=== PATIENT | female | born 1950 | race Caucasian/White ===

== ENCOUNTER → 2017-07-19 15:02 | Outpatient (CLI) | payer OTHER, SELFPAY ==
[2017-07-19 16:51] LABS: Hemoglobin A1c 11.9 % (4.2-6.3)
[2017-07-19 16:53] LABS: Vitamin D,25 Hydroxy 18.9 ng/mL (19.95-100.01)
[2017-07-19 17:23] LABS: Absolute Lymphocyte Count 1.42 X10^3/ul (0.83-4.51); Absolute Neutrophil Count 4.8 X10^3/uL (2.0-7.7); Basophil# 0.01 X10^3/uL; Basophil% 0.1 % (0-1); Eosinophil# 0.36 X10^3/uL; Eosinophils% 4.9 % (0-5); Hematocrit 44.4 % (37-47); Hemoglobin 13.8 g/dl (12.0-15.0); Lymphocyte # 1.42 X10^3/ul (4.0); Lymphocyte % 19.5 % (19-41); Mean Corp Hgb Conc 31.1 g/gl (32-36); Mean Corpuscular Hgb 26.6 pg (27.0-32.0); Mean Corpuscular Volume 85.5 fL (81-99); Mean Platelet Vol. 11.2 fl (6.2-12.0); Monocyte# 0.66 X10^3/uL; Monocyte% 9.1 % (0-10); Neutrophil # 4.83 X10^3/uL (2.7-7.7); Neutrophil % 66.3 % (47-70); Platelet Count 258 K/mm3 (150-450); RBC Distribution Width SD 47.1 fl (35.1-43.9); Red Blood Count 5.19 M/mm3 (4.2-5.4); White Blood Count 7.3 K/mm3 (4.4-11.0)
[2017-07-19 17:35] LABS: ALB/GLOB Ratio 0.6 RATIO (0.9-2.4); AST(SGOT) 19 U/L (15-37); Alanine Aminotransfer ALT/SGPT 21 U/L (13-56); Albumin, Serum 3.1 g/dL (3.2-5.0); Alkaline Phosphatase 128 U/L (45-117); Anion Gap 13 (5-15); BUN 45 mg/dL (7-18); BUN/Creat Ratio 15.1 RATIO (10-20); Calcium,Total 8.7 mg/dL (8.5-10.1); Chloride 105 mmol/L (98-107); Cholesterol 144 mg/dL (200); Creatinine, Serum 2.98 mg/dL (0.55-1.02); EST Glomerular Filtration Rate 17 mL/min (>60); Est Glom Filt Rate - Afr Amer 20 mL/min (>60); Globulin 5.1 g/dL (2.2-4.2); Glucose 223 mg/dL (74-106); High Density Lipoprotein 34 mg/dL; Phosphorus 3.5 mg/dL (2.5-4.9); Potassium 4.1 mmol/L (3.5-5.1); Protein, Total 8.2 g/dL (6.4-8.2); Sodium Level 137 mmol/L (136-145); Triglycerides 507 mg/dL
[2017-07-19 17:55] LABS: PTHIN 129.6 pg/mL (18.4-80.1)
[2017-07-19 18:12] LABS: POSITIVE COUNT NO; POSITIVE DIFFERENTIAL NO; POSITIVE MORPHOLOGY NO
== END ==
PROVIDERS: Family Provider Family Medicine Geriatric Medicine; PCP Family Medicine Geriatric Medicine; Visit Provider Family Medicine Geriatric Medicine
DX: E11.22 Type 2 diabetes mellitus with diabetic chronic kidney disease (principal); N18.9 Chronic kidney disease, unspecified; D63.8 Anemia in other chronic diseases classified elsewhere; E78.4 Other hyperlipidemia; E55.9 Vitamin D deficiency, unspecified; E21.1 Secondary hyperparathyroidism, not elsewhere classified
CPT/HCPCS: 36415; 80053; 80061; 82306; 83036; 83970; 84100; 84443; 85025

== ENCOUNTER → 2017-08-23 12:15 | Outpatient (CLI) | payer MEDICARE, OTHER, SELFPAY ==
[2017-08-23 12:49] LABS: Absolute Lymphocyte Count 1.47 X10^3/ul (0.83-4.51); Absolute Neutrophil Count 5.3 X10^3/uL (2.0-7.7); Basophil# 0.02 X10^3/uL; Basophil% 0.3 % (0-1); Eosinophil# 0.38 X10^3/uL; Eosinophils% 4.9 % (0-5); Hematocrit 40.7 % (37-47); Lymphocyte # 1.47 X10^3/ul (4.0); Lymphocyte % 18.9 % (19-41); Mean Corp Hgb Conc 31.9 g/gl (32-36); Mean Corpuscular Hgb 26.9 pg (27.0-32.0); Mean Corpuscular Volume 84.3 fL (81-99); Mean Platelet Vol. 11.1 fl (6.2-12.0); Monocyte# 0.59 X10^3/uL; Monocyte% 7.6 % (0-10); Neutrophil # 5.31 X10^3/uL (2.7-7.7); Neutrophil % 68.2 % (47-70); Platelet Count 274 K/mm3 (150-450); RBC Distribution Width CV 14.6 % (11.6-14.6); RBC Distribution Width SD 44.4 fl (35.1-43.9); Red Blood Count 4.83 M/mm3 (4.2-5.4); White Blood Count 7.8 K/mm3 (4.4-11.0)
[2017-08-23 12:56] LABS: POSITIVE COUNT NO; POSITIVE DIFFERENTIAL NO; POSITIVE MORPHOLOGY NO
[2017-08-23 13:01] LABS: Vitamin D,25 Hydroxy 27.2 ng/mL (29.95-100.01)
[2017-08-23 13:06] LABS: ALB/GLOB Ratio 0.6 RATIO (0.9-2.4); AST(SGOT) 12 U/L (15-37); Alanine Aminotransfer ALT/SGPT 17 U/L (13-56); Albumin, Serum 2.9 g/dL (3.2-5.0); Alkaline Phosphatase 110 U/L (45-117); Anion Gap 11 (5-15); BUN 56 mg/dL (7-18); Calcium,Total 8.5 mg/dL (8.5-10.1); Chloride 102 mmol/L (98-107); EST Glomerular Filtration Rate 15 mL/min (>60); Est Glom Filt Rate - Afr Amer 18 mL/min (>60); Globulin 4.7 g/dL (2.2-4.2); Glucose 206 mg/dL (74-106); Potassium 3.7 mmol/L (3.5-5.1); Protein, Total 7.6 g/dL (6.4-8.2); Sodium Level 138 mmol/L (136-145); Thyroid Stim Hormone (TSH) 0.42 uIU/mL (0.358-3.74)
[2017-08-25 11:31] LABS: Hep C Antibodies 0.1 s/co ratio (0.0-0.9)
== END ==
PROVIDERS: Family Provider Family Medicine Geriatric Medicine; PCP Family Medicine Geriatric Medicine; Visit Provider Family Medicine Geriatric Medicine
DX: E11.9 Type 2 diabetes mellitus without complications (principal); I10 Essential (primary) hypertension; E55.9 Vitamin D deficiency, unspecified; Z13.89 Encounter for screening for other disorder
CPT/HCPCS: 36415; 80053; 82306; 84443; 85025; 86803

== ENCOUNTER → 2017-09-13 14:09 | Outpatient (CLI) | payer MEDICARE, OTHER, SELFPAY ==
[2017-09-13 17:14] LABS: Albumin, Serum 3.2 g/dL (3.2-5.0); BUN 49 mg/dL (7-18); BUN/Creat Ratio 14.6 RATIO (10-20); Calcium,Total 8.8 mg/dL (8.5-10.1); Chloride 105 mmol/L (98-107); Creatinine, Serum 3.35 mg/dL (0.55-1.02); EST Glomerular Filtration Rate 15 mL/min (>60); Est Glom Filt Rate - Afr Amer 18 mL/min (>60); Glucose 235 mg/dL (74-106); Hematocrit 41.7 % (37-47); Hemoglobin 12.9 g/dl (12.0-15.0); Mean Corp Hgb Conc 30.9 g/gl (32-36); Mean Corpuscular Hgb 26.4 pg (27.0-32.0); Mean Corpuscular Volume 85.3 fL (81-99); Phosphorus 4.6 mg/dL (2.5-4.9); Platelet Count 252 K/mm3 (150-450); Potassium 4.3 mmol/L (3.5-5.1); RBC Distribution Width CV 14.8 % (11.6-14.6); RBC Distribution Width SD 46.1 fl (35.1-43.9); Red Blood Count 4.89 M/mm3 (4.2-5.4); Sodium Level 138 mmol/L (136-145); White Blood Count 7.5 K/mm3 (4.4-11.0)
[2017-09-13 17:19] LABS: Scan Indicated on CBC? Y/N NO
[2017-09-13 18:59] LABS: PTHIN 181.4 pg/mL (18.4-80.1)
== END ==
PROVIDERS: Family Provider Family Medicine Geriatric Medicine; PCP Family Medicine Geriatric Medicine; Visit Provider Internal Medicine Nephrology
DX: N18.5 Chronic kidney disease, stage 5 (principal); E21.1 Secondary hyperparathyroidism, not elsewhere classified
CPT/HCPCS: 36415; 80069; 83970; 85027

== ENCOUNTER → 2017-11-04 10:56 | Outpatient (CLI) | payer MEDICARE, OTHER, SELFPAY ==
--- NOTE | 2017-11-04 10:56 | DT_ITS ---
This patient was seen during an EMR downtime November 01, 2017 - November 08, 2017. This patient may have a combination of paper and electronic documentation or all paper documentation. All documentation is viewable within the e-chart portion of [facility] for each patient visit.
[2017-11-05 14:44] LABS: PTHIN 86.4 pg/mL (18.4-80.1)
[2017-11-09 05:04] LABS: Albumin, Serum 2.4 g/dL (3.2-5.0); BUN 38 mg/dL (7-18); BUN/Creat Ratio 10.5 RATIO (10-20); Calcium,Total 8.7 mg/dL (8.5-10.1); Creatinine, Serum 3.63 mg/dL (0.55-1.02); EST Glomerular Filtration Rate 13 mL/min (>60); Est Glom Filt Rate - Afr Amer 16 mL/min (>60); Glucose 122 mg/dL (74-106); Phosphorus 3.4 mg/dL (2.5-4.9); Sodium Level 143 mmol/L (136-145)
[2017-11-09 05:05] LABS: Chloride 113 mmol/L (98-107); Potassium 4.2 mmol/L (3.5-5.1)
[2017-11-09 05:37] LABS: Hematocrit 37.2 % (37-47); Hemoglobin 11.4 g/dl (12.0-15.0); Mean Corp Hgb Conc 30.6 g/gl (32-36); Mean Corpuscular Hgb 25.5 pg (27.0-32.0); Mean Corpuscular Volume 83.2 fL (81-99); Platelet Count 351 K/mm3 (150-450); RBC Distribution Width CV 15.1 % (11.6-14.6); RBC Distribution Width SD 46.2 fl (35.1-43.9); Red Blood Count 4.47 M/mm3 (4.2-5.4); Scan Indicated on CBC? Y/N NO; White Blood Count 6.5 K/mm3 (4.4-11.0)
== END ==
PROVIDERS: Family Provider Family Medicine Geriatric Medicine; PCP Family Medicine Geriatric Medicine; Visit Provider Internal Medicine Nephrology
DX: N18.5 Chronic kidney disease, stage 5 (principal); D63.8 Anemia in other chronic diseases classified elsewhere; E21.1 Secondary hyperparathyroidism, not elsewhere classified
CPT/HCPCS: 36415; 80069; 83970; 85027

== ENCOUNTER → 2017-11-22 11:18 | Outpatient (CLI) | payer MEDICARE, OTHER, SELFPAY ==
[2017-11-22 12:44] LABS: Absolute Neutrophil Count 5.3 X10^3/uL (2.0-7.7); Basophil# 0.02 X10^3/uL; Basophil% 0.3 % (0-1); Eosinophil# 0.42 X10^3/uL; Eosinophils% 5.3 % (0-5); Hematocrit 37.4 % (37-47); Hemoglobin 11.6 g/dl (12.0-15.0); Lymphocyte % 19.1 % (19-41); Mean Corpuscular Hgb 25.8 pg (27.0-32.0); Mean Corpuscular Volume 83.1 fL (81-99); Mean Platelet Vol. 11.3 fl (6.2-12.0); Monocyte# 0.57 X10^3/uL; Monocyte% 7.3 % (0-10); Neutrophil # 5.33 X10^3/uL (2.7-7.7); Neutrophil % 67.7 % (47-70); Platelet Count 295 K/mm3 (150-450); RBC Distribution Width CV 16.4 % (11.6-14.6); White Blood Count 7.9 K/mm3 (4.4-11.0)
[2017-11-22 12:51] LABS: Vitamin D,25 Hydroxy 31.1 ng/mL (29.95-100.01)
[2017-11-22 12:53] LABS: ALB/GLOB Ratio 0.5 RATIO (0.9-2.4); AST(SGOT) 12 U/L (15-37); Alanine Aminotransfer ALT/SGPT 15 U/L (13-56); Albumin, Serum 2.7 g/dL (3.2-5.0); Alkaline Phosphatase 124 U/L (45-117); Anion Gap 11 (5-15); BUN 38 mg/dL (7-18); BUN/Creat Ratio 14.1 RATIO (10-20); Calcium,Total 8.4 mg/dL (8.5-10.1); Chloride 110 mmol/L (98-107); Creatinine, Serum 2.69 mg/dL (0.55-1.02); EST Glomerular Filtration Rate 19 mL/min (>60); Est Glom Filt Rate - Afr Amer 23 mL/min (>60); Glucose 211 mg/dL (74-106); POSITIVE COUNT NO; POSITIVE DIFFERENTIAL NO; POSITIVE MORPHOLOGY NO; Potassium 4.7 mmol/L (3.5-5.1); Protein, Total 7.7 g/dL (6.4-8.2); Sodium Level 142 mmol/L (136-145); Thyroid Stim Hormone (TSH) 2.18 uIU/mL (0.358-3.74)
== END ==
PROVIDERS: Family Provider Family Medicine Geriatric Medicine; PCP Family Medicine Geriatric Medicine; Visit Provider Family Medicine Geriatric Medicine
DX: E11.9 Type 2 diabetes mellitus without complications (principal); I10 Essential (primary) hypertension; E55.9 Vitamin D deficiency, unspecified
CPT/HCPCS: 36415; 80053; 82306; 84443; 85025

== ENCOUNTER → 2018-01-04 09:48 | Outpatient (CLI) | payer MEDICARE, OTHER, SELFPAY ==
[2018-01-04 12:47] LABS: Hemoglobin 11.5 g/dl (12.0-15.0); Mean Corp Hgb Conc 30.3 g/gl (32-36); Mean Corpuscular Hgb 26.1 pg (27.0-32.0); Mean Corpuscular Volume 86.4 fL (81-99); Platelet Count 274 K/mm3 (150-450); RBC Distribution Width SD 51.1 fl (35.1-43.9); White Blood Count 7.2 K/mm3 (4.4-11.0)
[2018-01-04 12:48] LABS: Scan Indicated on CBC? Y/N NO
[2018-01-04 12:57] LABS: Albumin, Serum 2.9 g/dL (3.2-5.0); BUN 45 mg/dL (7-18); BUN/Creat Ratio 14.8 RATIO (10-20); Calcium,Total 8.4 mg/dL (8.5-10.1); Chloride 106 mmol/L (98-107); Creatinine, Serum 3.04 mg/dL (0.55-1.02); EST Glomerular Filtration Rate 16 mL/min (>60); Est Glom Filt Rate - Afr Amer 20 mL/min (>60); Glucose 214 mg/dL (74-106); Phosphorus 4.4 mg/dL (2.5-4.9); Potassium 4.6 mmol/L (3.5-5.1); Sodium Level 139 mmol/L (136-145)
[2018-01-05 09:49] LABS: Vitamin D,25 Hydroxy 39.1 ng/mL (29.95-100.01)
[2018-01-05 10:00] LABS: PTHIN 97.5 pg/mL (18.4-80.1)
== END ==
PROVIDERS: Family Provider Family Medicine Geriatric Medicine; PCP Family Medicine Geriatric Medicine; Visit Provider Internal Medicine Nephrology
DX: N18.5 Chronic kidney disease, stage 5 (principal); D63.8 Anemia in other chronic diseases classified elsewhere; E55.9 Vitamin D deficiency, unspecified; E21.1 Secondary hyperparathyroidism, not elsewhere classified
CPT/HCPCS: 36415; 80069; 82306; 83970; 85027

== ENCOUNTER → 2018-02-22 14:37 | Outpatient (CLI) | payer MEDICARE, OTHER, SELFPAY ==
[2018-02-22 16:31] LABS: Absolute Lymphocyte Count 1.31 X10^3/ul (0.83-4.51); Basophil# 0.02 X10^3/uL; Basophil% 0.3 % (0-1); Eosinophil# 0.33 X10^3/uL; Eosinophils% 4.6 % (0-5); Hematocrit 38.8 % (37-47); Hemoglobin 12.2 g/dl (12.0-15.0); Lymphocyte # 1.31 X10^3/ul (4.0); Lymphocyte % 18.1 % (19-41); Mean Corp Hgb Conc 31.4 g/gl (32-36); Mean Corpuscular Hgb 27.1 pg (27.0-32.0); Mean Corpuscular Volume 86.2 fL (81-99); Mean Platelet Vol. 11.7 fl (6.2-12.0); Monocyte# 0.56 X10^3/uL; Monocyte% 7.8 % (0-10); Neutrophil # 4.99 X10^3/uL (2.7-7.7); Neutrophil % 69.1 % (47-70); Platelet Count 268 K/mm3 (150-450); RBC Distribution Width CV 14.7 % (11.6-14.6); RBC Distribution Width SD 45.7 fl (35.1-43.9); White Blood Count 7.2 K/mm3 (4.4-11.0)
[2018-02-22 16:38] LABS: POSITIVE COUNT NO; POSITIVE DIFFERENTIAL NO; POSITIVE MORPHOLOGY NO
[2018-02-22 16:41] LABS: ALB/GLOB Ratio 0.6 RATIO (0.9-2.4); AST(SGOT) 10 U/L (15-37); Alanine Aminotransfer ALT/SGPT 18 U/L (13-56); Albumin, Serum 2.8 g/dL (3.2-5.0); Alkaline Phosphatase 131 U/L (45-117); Anion Gap 10 (5-15); BUN 51 mg/dL (7-18); BUN/Creat Ratio 16.3 RATIO (10-20); Calcium,Total 8.5 mg/dL (8.5-10.1); Chloride 105 mmol/L (98-107); Creatinine, Serum 3.13 mg/dL (0.55-1.02); EST Glomerular Filtration Rate 16 mL/min (>60); Est Glom Filt Rate - Afr Amer 19 mL/min (>60); Globulin 4.9 g/dL (2.2-4.2); Glucose 373 mg/dL (74-106); Potassium 4.7 mmol/L (3.5-5.1); Protein, Total 7.7 g/dL (6.4-8.2); Sodium Level 137 mmol/L (136-145); Thyroid Stim Hormone (TSH) 2.03 uIU/mL (0.358-3.74); Vitamin D,25 Hydroxy 23.1 ng/mL (29.95-100.01)
== END ==
PROVIDERS: Family Provider Family Medicine Geriatric Medicine; PCP Family Medicine Geriatric Medicine; Visit Provider Family Medicine Geriatric Medicine
DX: E11.9 Type 2 diabetes mellitus without complications (principal); I10 Essential (primary) hypertension; E55.9 Vitamin D deficiency, unspecified
CPT/HCPCS: 36415; 80053; 82306; 84443; 85025

== ENCOUNTER → 2018-03-22 11:52 | Outpatient (CLI) | payer MEDICARE, OTHER, SELFPAY ==
[2018-03-22 12:45] LABS: Hematocrit 39.3 % (37-47); Hemoglobin 11.8 g/dl (12.0-15.0); Mean Corpuscular Hgb 26.5 pg (27.0-32.0); Mean Corpuscular Volume 88.3 fL (81-99); Mean Platelet Vol. 10.7 fl (6.2-12.0); Platelet Count 249 K/mm3 (150-450); RBC Distribution Width CV 15.2 % (11.6-14.6); RBC Distribution Width SD 48.5 fl (35.1-43.9); Red Blood Count 4.45 M/mm3 (4.2-5.4); White Blood Count 7.1 K/mm3 (4.4-11.0)
[2018-03-22 12:46] LABS: Scan Indicated on CBC? Y/N NO
[2018-03-22 13:02] LABS: Albumin, Serum 2.8 g/dL (3.2-5.0); BUN 49 mg/dL (7-18); BUN/Creat Ratio 18.7 RATIO (10-20); Calcium,Total 8.6 mg/dL (8.5-10.1); Chloride 112 mmol/L (98-107); Creatinine, Serum 2.62 mg/dL (0.55-1.02); EST Glomerular Filtration Rate 19 mL/min (>60); Est Glom Filt Rate - Afr Amer 24 mL/min (>60); Glucose 123 mg/dL (74-106); Phosphorus 4.8 mg/dL (2.5-4.9); Potassium 4.6 mmol/L (3.5-5.1); Sodium Level 142 mmol/L (136-145)
[2018-03-22 13:31] LABS: PTHIN 90.6 pg/mL (18.4-80.1)
== END ==
PROVIDERS: Family Provider Family Medicine Geriatric Medicine; PCP Family Medicine Geriatric Medicine; Visit Provider Internal Medicine Nephrology
DX: N18.5 Chronic kidney disease, stage 5 (principal); D63.8 Anemia in other chronic diseases classified elsewhere; E21.1 Secondary hyperparathyroidism, not elsewhere classified
CPT/HCPCS: 36415; 80069; 83970; 85027

== ENCOUNTER → 2018-03-25 09:46 | Outpatient (CLI) | payer MEDICARE, OTHER, SELFPAY | PROVIDERS: Family Provider Family Medicine Geriatric Medicine; PCP Family Medicine Geriatric Medicine; Referring Provider Family Medicine Geriatric Medicine; Visit Provider Family Medicine Geriatric Medicine | DX: R06.02 Shortness of breath (principal) | CPT/HCPCS: 93306; Q9957; A4216; C8929 ==

== ENCOUNTER → 2018-04-04 10:51 | Outpatient (CLI) | payer MEDICARE, OTHER, SELFPAY ==
[2018-04-04 13:03] LABS: Anion Gap 9 (5-15); BUN 54 mg/dL (7-18); BUN/Creat Ratio 15.4 RATIO (10-20); Calcium,Total 8.7 mg/dL (8.5-10.1); Chloride 108 mmol/L (98-107); EST Glomerular Filtration Rate 14 mL/min (>60); Est Glom Filt Rate - Afr Amer 17 mL/min (>60); Glucose 96 mg/dL (74-106); Potassium 4.4 mmol/L (3.5-5.1); Sodium Level 140 mmol/L (136-145)
== END ==
PROVIDERS: Family Provider Family Medicine Geriatric Medicine; PCP Family Medicine Geriatric Medicine; Visit Provider Family Medicine Geriatric Medicine
DX: N18.3 Chronic kidney disease, stage 3 (moderate) (principal)
CPT/HCPCS: 36415; 80048

== ENCOUNTER → 2018-05-03 11:31 | Outpatient (CLI) | payer MEDICARE, OTHER, SELFPAY ==
[2018-03-24 09:55] VITALS: BMI 58.5
[2018-05-03 12:46] LABS: Anion Gap 13 (5-15); BUN 46 mg/dL (7-18); BUN/Creat Ratio 14.1 RATIO (10-20); Calcium,Total 8.5 mg/dL (8.5-10.1); Chloride 106 mmol/L (98-107); Creatinine, Serum 3.26 mg/dL (0.55-1.02); EST Glomerular Filtration Rate 15 mL/min (>60); Est Glom Filt Rate - Afr Amer 18 mL/min (>60); Glucose 201 mg/dL (74-106); Potassium 4.7 mmol/L (3.5-5.1); Sodium Level 140 mmol/L (136-145)
== END ==
PROVIDERS: Family Provider Family Medicine Geriatric Medicine; PCP Family Medicine Geriatric Medicine; Visit Provider Internal Medicine Nephrology
DX: N18.5 Chronic kidney disease, stage 5 (principal)
CPT/HCPCS: 36415; 80048

== ENCOUNTER → 2018-05-25 13:11 | Outpatient (CLI) | payer MEDICARE, OTHER, SELFPAY ==
[2018-03-24 09:55] VITALS: BMI 58.5
[2018-05-25 17:59] LABS: Absolute Lymphocyte Count 1.32 X10^3/ul (0.83-4.51); Absolute Neutrophil Count 3.8 X10^3/uL (2.0-7.7); Basophil# 0.02 X10^3/uL; Basophil% 0.3 % (0-1); Eosinophil# 0.44 X10^3/uL; Eosinophils% 7.2 % (0-5); Hematocrit 38.3 % (37-47); Hemoglobin 11.5 g/dl (12.0-15.0); Lymphocyte # 1.32 X10^3/ul (4.0); Lymphocyte % 21.5 % (19-41); Mean Corpuscular Hgb 26.3 pg (27.0-32.0); Mean Corpuscular Volume 87.4 fL (81-99); Mean Platelet Vol. 11.2 fl (6.2-12.0); Monocyte# 0.53 X10^3/uL; Monocyte% 8.6 % (0-10); Neutrophil # 3.82 X10^3/uL (2.7-7.7); Neutrophil % 62.1 % (47-70); POSITIVE COUNT NO; POSITIVE DIFFERENTIAL NO; POSITIVE MORPHOLOGY NO; Platelet Count 285 K/mm3 (150-450); RBC Distribution Width CV 15.1 % (11.6-14.6); RBC Distribution Width SD 47.8 fl (35.1-43.9); Red Blood Count 4.38 M/mm3 (4.2-5.4); White Blood Count 6.2 K/mm3 (4.4-11.0)
[2018-05-25 18:14] LABS: Hemoglobin A1c 8.6 % (4.2-6.3)
[2018-05-25 18:18] LABS: Vitamin D,25 Hydroxy 34.1 ng/mL (29.95-100.01)
[2018-05-25 18:21] LABS: ALB/GLOB Ratio 0.7 RATIO (0.9-2.4); AST(SGOT) 9 U/L (15-37); Alanine Aminotransfer ALT/SGPT 19 U/L (13-56); Alkaline Phosphatase 107 U/L (45-117); Anion Gap 13 (5-15); BUN 49 mg/dL (7-18); BUN/Creat Ratio 15.4 RATIO (10-20); Calcium,Total 8.5 mg/dL (8.5-10.1); Chloride 108 mmol/L (98-107); Cholesterol 117 mg/dL (200); Creatinine, Serum 3.19 mg/dL (0.55-1.02); EST Glomerular Filtration Rate 16 mL/min (>60); Est Glom Filt Rate - Afr Amer 19 mL/min (>60); Globulin 4.6 g/dL (2.2-4.2); Glucose 212 mg/dL (74-106); High Density Lipoprotein 34 mg/dL; Potassium 4.2 mmol/L (3.5-5.1); Protein, Total 7.6 g/dL (6.4-8.2); Sodium Level 142 mmol/L (136-145); Thyroid Stim Hormone (TSH) 1.22 uIU/mL (0.358-3.74); Triglycerides 285 mg/dL; Very Low Density Lipoprotein 57 mg/dL (5-40)
== END ==
PROVIDERS: Family Provider Family Medicine Geriatric Medicine; PCP Family Medicine Geriatric Medicine; Visit Provider Internal Medicine Nephrology
DX: N18.5 Chronic kidney disease, stage 5 (principal); D63.8 Anemia in other chronic diseases classified elsewhere; E55.9 Vitamin D deficiency, unspecified
CPT/HCPCS: 36415; 80053; 80061; 82306; 83036; 84443; 85025

== ENCOUNTER → 2018-05-26 11:57 | Outpatient (CLI) | payer MEDICARE, OTHER, SELFPAY ==
--- NOTE | 2018-05-26 12:15 | RAD_ITS ---
STUDY: X-RAY - RIGHT KNEE REASON FOR EXAM: Female, 68 years old. TECHNIQUE: view(s) of the knee. COMPARISON: None. FINDINGS: Limited examination. There is mild osteoarthritis of the knee joint no fracture or subluxation . No joint effusion. RAD/Knee 3 Views IMPRESSION: Limited grossly negative study except for mild osteoarthritis Electronically Signed: Agatha Ayon, at 15:30 EST Tel , Service support ,
== END ==
PROVIDERS: Family Provider Family Medicine Geriatric Medicine; PCP Family Medicine Geriatric Medicine; Referring Provider Family Medicine Geriatric Medicine; Visit Provider Family Medicine Geriatric Medicine
DX: M25.569 Pain in unspecified knee (principal)
CPT/HCPCS: 73562

== ENCOUNTER → 2018-06-27 11:23 | Outpatient (CLI) | payer MEDICARE, OTHER, SELFPAY ==
[2018-03-24 09:55] VITALS: BMI 58.5
[2018-06-27 13:14] LABS: Hematocrit 40.3 % (37-47); Hemoglobin 11.9 g/dl (12.0-15.0); Mean Corp Hgb Conc 29.5 g/gl (32-36); Mean Corpuscular Hgb 25.5 pg (27.0-32.0); Mean Corpuscular Volume 86.3 fL (81-99); Mean Platelet Vol. 10.5 fl (6.2-12.0); Platelet Count 257 K/mm3 (150-450); RBC Distribution Width CV 15.5 % (11.6-14.6); RBC Distribution Width SD 48.6 fl (35.1-43.9); Red Blood Count 4.67 M/mm3 (4.2-5.4); White Blood Count 8.1 K/mm3 (4.4-11.0)
[2018-06-27 13:16] LABS: Scan Indicated on CBC? Y/N NO
[2018-06-27 13:20] LABS: Albumin, Serum 2.9 g/dL (3.2-5.0); BUN 44 mg/dL (7-18); BUN/Creat Ratio 14.5 RATIO (10-20); Calcium,Total 8.6 mg/dL (8.5-10.1); Chloride 109 mmol/L (98-107); Creatinine, Serum 3.03 mg/dL (0.55-1.02); EST Glomerular Filtration Rate 16 mL/min (>60); Est Glom Filt Rate - Afr Amer 20 mL/min (>60); Glucose 172 mg/dL (74-106); Phosphorus 4.1 mg/dL (2.5-4.9); Potassium 4.5 mmol/L (3.5-5.1); Sodium Level 143 mmol/L (136-145)
[2018-06-27 13:57] LABS: PTHIN 171.9 pg/mL (18.4-80.1)
== END ==
PROVIDERS: Family Provider Family Medicine Geriatric Medicine; PCP Family Medicine Geriatric Medicine; Visit Provider Internal Medicine Nephrology
DX: N18.5 Chronic kidney disease, stage 5 (principal); E21.1 Secondary hyperparathyroidism, not elsewhere classified
CPT/HCPCS: 36415; 80069; 83970; 85027

== ENCOUNTER → 2018-07-25 11:34 | Outpatient (CLI) | payer MEDICARE, OTHER, SELFPAY ==
[2018-03-24 09:55] VITALS: BMI 58.5
[2018-07-25 12:44] LABS: Hematocrit 43.1 % (37-47); Hemoglobin 12.8 g/dl (12.0-15.0); Mean Corp Hgb Conc 29.7 g/gl (32-36); Mean Corpuscular Hgb 25.5 pg (27.0-32.0); Mean Corpuscular Volume 85.9 fL (81-99); Mean Platelet Vol. 10.9 fl (6.2-12.0); Platelet Count 273 K/mm3 (150-450); RBC Distribution Width CV 15.2 % (11.6-14.6); RBC Distribution Width SD 47.5 fl (35.1-43.9); Red Blood Count 5.02 M/mm3 (4.2-5.4); White Blood Count 7.9 K/mm3 (4.4-11.0)
[2018-07-25 12:59] LABS: Scan Indicated on CBC? Y/N NO
[2018-07-25 13:04] LABS: BUN 46 mg/dL (7-18); Creatinine, Serum 3.26 mg/dL (0.55-1.02); EST Glomerular Filtration Rate 15 mL/min (>60); Glucose 94 mg/dL (74-106)
[2018-07-25 13:05] LABS: BUN/Creat Ratio 14.1 RATIO (10-20); Calcium,Total 8.9 mg/dL (8.5-10.1); Chloride 109 mmol/L (98-107); Est Glom Filt Rate - Afr Amer 18 mL/min (>60); Phosphorus 4.7 mg/dL (2.5-4.9); Potassium 4.7 mmol/L (3.5-5.1); Sodium Level 142 mmol/L (136-145)
[2018-07-25 13:11] LABS: PTHIN 95.2 pg/mL (18.4-80.1)
== END ==
PROVIDERS: Internal Medicine Nephrology; Family Provider Family Medicine Geriatric Medicine; PCP Family Medicine Geriatric Medicine; Visit Provider Family Medicine Geriatric Medicine
DX: N18.5 Chronic kidney disease, stage 5 (principal); E21.1 Secondary hyperparathyroidism, not elsewhere classified
CPT/HCPCS: 36415; 80069; 83970; 85027

== ENCOUNTER → 2018-08-25 11:22 | Outpatient (CLI) | payer MEDICARE, OTHER, SELFPAY ==
[2018-03-24 09:55] VITALS: BMI 58.5
[2018-08-25 12:47] LABS: Absolute Lymphocyte Count 1.14 X10^3/ul (0.83-4.51); Absolute Neutrophil Count 5.5 X10^3/uL (2.0-7.7); Basophil# 0.01 X10^3/uL; Basophil% 0.1 % (0-1); Eosinophil# 0.28 X10^3/uL; Eosinophils% 3.8 % (0-5); Hemoglobin 12.3 g/dl (12.0-15.0); Lymphocyte # 1.14 X10^3/ul (4.0); Lymphocyte % 15.3 % (19-41); Mean Corpuscular Hgb 25.6 pg (27.0-32.0); Mean Corpuscular Volume 85.2 fL (81-99); Mean Platelet Vol. 10.7 fl (6.2-12.0); Monocyte# 0.48 X10^3/uL; Monocyte% 6.4 % (0-10); Neutrophil # 5.54 X10^3/uL (2.7-7.7); Neutrophil % 74.3 % (47-70); Platelet Count 257 K/mm3 (150-450); RBC Distribution Width CV 15.2 % (11.6-14.6); RBC Distribution Width SD 47.6 fl (35.1-43.9); Red Blood Count 4.81 M/mm3 (4.2-5.4); White Blood Count 7.5 K/mm3 (4.4-11.0)
[2018-08-25 12:50] LABS: POSITIVE COUNT NO; POSITIVE DIFFERENTIAL NO; POSITIVE MORPHOLOGY NO
[2018-08-25 12:58] LABS: Vitamin D,25 Hydroxy 50.5 ng/mL (29.95-100.01)
[2018-08-25 13:08] LABS: ALB/GLOB Ratio 0.6 RATIO (0.9-2.4); AST(SGOT) 14 U/L (15-37); Alanine Aminotransfer ALT/SGPT 16 U/L (13-56); Albumin, Serum 2.9 g/dL (3.2-5.0); Alkaline Phosphatase 113 U/L (45-117); Anion Gap 8 (5-15); BUN 54 mg/dL (7-18); Calcium,Total 8.5 mg/dL (8.5-10.1); Chloride 107 mmol/L (98-107); Creatinine, Serum 3.86 mg/dL (0.55-1.02); EST Glomerular Filtration Rate 12 mL/min (>60); Est Glom Filt Rate - Afr Amer 15 mL/min (>60); Globulin 4.6 g/dL (2.2-4.2); Glucose 277 mg/dL (74-106); Phosphorus 4.8 mg/dL (2.5-4.9); Potassium 4.4 mmol/L (3.5-5.1); Protein, Total 7.5 g/dL (6.4-8.2); Sodium Level 138 mmol/L (136-145); Thyroid Stim Hormone (TSH) 0.42 uIU/mL (0.358-3.74)
[2018-08-25 13:23] LABS: PTHIN 92.9 pg/mL (18.4-80.1)
== END ==
PROVIDERS: Family Provider Family Medicine Geriatric Medicine; PCP Family Medicine Geriatric Medicine; Visit Provider Internal Medicine Nephrology
DX: E11.22 Type 2 diabetes mellitus with diabetic chronic kidney disease (principal); I12.0 Hypertensive chronic kidney disease with stage 5 chronic kidney disease or end stage renal disease; N18.5 Chronic kidney disease, stage 5
CPT/HCPCS: 36415; 80053; 82306; 83970; 84100; 84443; 85025

== ENCOUNTER → 2018-09-28 13:22 | Outpatient (CLI) | payer MEDICARE, OTHER, SELFPAY ==
[2018-03-24 09:55] VITALS: BMI 58.5
[2018-09-28 15:27] LABS: Hematocrit 40.6 % (37-47); Hemoglobin 12.5 g/dl (12.0-15.0); Mean Corp Hgb Conc 30.8 g/gl (32-36); Mean Corpuscular Hgb 25.4 pg (27.0-32.0); Mean Corpuscular Volume 82.5 fL (81-99); Mean Platelet Vol. 11.2 fl (6.2-12.0); Platelet Count 263 K/mm3 (150-450); RBC Distribution Width CV 15.6 % (11.6-14.6); RBC Distribution Width SD 46.4 fl (35.1-43.9); Red Blood Count 4.92 M/mm3 (4.2-5.4); White Blood Count 7.4 K/mm3 (4.4-11.0)
[2018-09-28 15:28] LABS: Scan Indicated on CBC? Y/N NO
[2018-09-28 16:40] LABS: Albumin, Serum 2.9 g/dL (3.2-5.0); BUN 55 mg/dL (7-18); BUN/Creat Ratio 15.5 RATIO (10-20); Calcium,Total 8.5 mg/dL (8.5-10.1); Chloride 107 mmol/L (98-107); Creatinine, Serum 3.54 mg/dL (0.55-1.02); EST Glomerular Filtration Rate 14 mL/min (>60); Est Glom Filt Rate - Afr Amer 17 mL/min (>60); Ferritin 46 ng/mL (8-252); Glucose 224 mg/dL (74-106); Iron 40 ug/dL (50-170); Iron Binding Capacity,Total 330 ug/dL (250-450); Phosphorus 4.2 mg/dL (2.5-4.9); Potassium 4.4 mmol/L (3.5-5.1); Sodium Level 140 mmol/L (136-145)
[2018-09-28 16:45] LABS: PTHIN 163.9 pg/mL (18.4-80.1)
== END ==
PROVIDERS: Family Provider Family Medicine Geriatric Medicine; PCP Family Medicine Geriatric Medicine; Visit Provider Internal Medicine Nephrology
DX: N18.5 Chronic kidney disease, stage 5 (principal); D63.8 Anemia in other chronic diseases classified elsewhere; E21.1 Secondary hyperparathyroidism, not elsewhere classified
CPT/HCPCS: 36415; 80069; 82728; 83540; 83550; 83970; 85027

== ENCOUNTER → 2018-11-02 10:17 | Outpatient (CLI) | payer MEDICARE, OTHER, SELFPAY ==
[2018-03-24 09:55] VITALS: BMI 58.5
--- NOTE | 2018-11-02 10:20 | BI_ITS ---
MAMMOGRAPHY - BILATERAL SCREENING REASON FOR EXAM: Female, 68 years old. Routine annual screening examination. PERTINENT HISTORY: Sister with breast cancer. Mother with breast cancer. TECHNIQUE: Digital bilateral breast luis (3D mammographic acquisition) in the CC and MLO projections. 2-D mediolateral oblique (MLO) and craniocaudad (CC) views of both breasts were obtained. CAD: Full Field Digital Mammography with Computer Added Detection was performed. COMPARISON: Comparison is made with prior examination dated July 05, 2014 and May 20, 2012. FINDINGS: Breast Composition: The breasts are heterogeneously dense, which may obscure small masses. There is a 1.2 cm x 1.1 cm well-defined nodule in the slightly inferior medial aspect of the left breast. This is new as compared to prior study. Correlation with ultrasound is recommended. Stable appearance of the bilateral axillary lymph nodes. No other significant abnormalities are identified. BI/SCREEN MAMM (CAD) W/LUIS BILAT IMPRESSION: 1.2 cm x 1.1 cm well-defined nodule in the slightly inferior medial aspect of the left breast as described. Correlation with ultrasound is recommended. ASSESSMENT CATEGORY: BIRADS Category 0: Incomplete. Need additional imaging evaluation. A letter regarding these results will be sent to the patient by the facility within 30 days. Approximately 10% of breast cancers are not detected by mammography. A normal mammogram should not delay biopsy of a clinically suspicious abnormality. [id number] Electronically Signed: Lv Ba, at 12:46 EDT , Service support ,
--- NOTE | 2018-11-02 10:23 | BD_ITS ---
STUDY: DUAL ENERGY X-RAY ABSORPTIOMETRY / DXA REASON FOR EXAM: Female, 68 years old. The patient is postmenopausal. No loss of height. TECHNIQUE: Bone Mineral Density (BMD) measurements of both forearms were obtained. COMPARISON: None. FINDINGS: Right Forearm: g/cm2 (0.882) / T-score (0.1) / Z-score (1.4) Left Forearm: g/cm2 (0.900) / T-score (0.1) / Z-score (1.6) BD/Dexa Bone Density/Append Skel IMPRESSION: The patient is considered normal as outlined below according to World Jun[employer] Organization (WHO) criteria with a low fracture risk. Reference Information: The T-score is the number of standard deviations above or below the standard which is normal for young adults at their peak bone mineral density. The World Health Organization (WHO) interprets the T-scores as follows: Above -1 Normal bone density Between -1 and -2.5 Osteopenia Equal to / or below -2.5 Osteoporosis As a practical clinical guideline, osteopenia may be graded as follows: Mild -1 through -1.5 Moderate -1.6 through -2.0 Severe -2.1 through -2.4 The Z-score is the number of standard deviations above or below age-matched controls. A Z-score of less than -1.5 would be considered abnormal. References: 1. NIH Osteoporosis and Related Bone Diseases http://www.osteo.org 2. International Society for Clinical Densitometry http://www.iscd.org 3. National Osteoporosis Foundation http://www.nof.org Electronically Signed: Lv Ba, at 8:59 EDT , Service support ,
== END ==
PROVIDERS: Family Provider Family Medicine Geriatric Medicine; PCP Family Medicine Geriatric Medicine; Referring Provider Family Medicine Geriatric Medicine; Visit Provider Family Medicine Geriatric Medicine
DX: Z12.31 Encounter for screening mammogram for malignant neoplasm of breast (principal); Z78.0 Asymptomatic menopausal state
CPT/HCPCS: 77063; 77067; 77081

== ENCOUNTER → 2018-11-23 10:26 | Outpatient (CLI) | payer MEDICARE, OTHER, SELFPAY ==
[2018-03-24 09:55] VITALS: BMI 58.5
[2018-11-23 12:22] LABS: Absolute Neutrophil Count 4.9 X10^3/uL (2.0-7.7); Basophil# 0.02 X10^3/uL; Basophil% 0.3 % (0-1); Eosinophil# 0.34 X10^3/uL; Hematocrit 42.5 % (37-47); Hemoglobin 13.3 g/dl (12.0-15.0); Lymphocyte % 17.8 % (19-41); Mean Corp Hgb Conc 31.3 g/gl (32-36); Mean Corpuscular Hgb 25.7 pg (27.0-32.0); Mean Corpuscular Volume 82.2 fL (81-99); Monocyte# 0.32 X10^3/uL; Monocyte% 4.7 % (0-10); Neutrophil # 4.86 X10^3/uL (2.7-7.7); Neutrophil % 71.9 % (47-70); Platelet Count 258 K/mm3 (150-450); RBC Distribution Width CV 16.2 % (11.6-14.6); RBC Distribution Width SD 47.8 fl (35.1-43.9); Red Blood Count 5.17 M/mm3 (4.2-5.4); White Blood Count 6.8 K/mm3 (4.4-11.0)
[2018-11-23 12:34] LABS: POSITIVE COUNT NO; POSITIVE DIFFERENTIAL NO; POSITIVE MORPHOLOGY NO
[2018-11-23 12:38] LABS: Vitamin D,25 Hydroxy 42.7 ng/mL (29.95-100.01)
[2018-11-23 12:39] LABS: ALB/GLOB Ratio 0.6 RATIO (0.9-2.4); AST(SGOT) 11 U/L (15-37); Alanine Aminotransfer ALT/SGPT 18 U/L (13-56); Albumin, Serum 2.9 g/dL (3.2-5.0); Alkaline Phosphatase 114 U/L (45-117); Anion Gap 7 (5-15); BUN 61 mg/dL (7-18); BUN/Creat Ratio 15.9 RATIO (10-20); Calcium,Total 8.7 mg/dL (8.5-10.1); Chloride 104 mmol/L (98-107); Creatinine, Serum 3.83 mg/dL (0.55-1.02); EST Glomerular Filtration Rate 13 mL/min (>60); Est Glom Filt Rate - Afr Amer 15 mL/min (>60); Globulin 5.1 g/dL (2.2-4.2); Glucose 313 mg/dL (74-106); Potassium 4.1 mmol/L (3.5-5.1); Sodium Level 135 mmol/L (136-145)
== END ==
PROVIDERS: Family Provider Family Medicine Geriatric Medicine; PCP Family Medicine Geriatric Medicine; Visit Provider Family Medicine Geriatric Medicine
DX: E11.9 Type 2 diabetes mellitus without complications (principal); I10 Essential (primary) hypertension; E55.9 Vitamin D deficiency, unspecified
CPT/HCPCS: 36415; 80053; 82306; 84443; 85025

== ENCOUNTER → 2018-12-13 13:33 | Outpatient (CLI) | payer MEDICARE, OTHER, SELFPAY ==
[2018-03-24 09:55] VITALS: BMI 58.5
[2018-12-13 17:15] LABS: Hematocrit 42.7 % (37-47); Mean Corp Hgb Conc 30.4 g/dL (32-36); Mean Corpuscular Hgb 26.5 pg (27.0-32.0); Mean Corpuscular Volume 87.1 fL (81-99); Mean Platelet Vol. 10.8 fl (6.2-12.0); Platelet Count 232 K/mm3 (150-450); RBC Distribution Width CV 15.7 % (11.6-14.6); White Blood Count 6.4 K/mm3 (4.4-11.0)
[2018-12-13 17:25] LABS: Albumin, Serum 2.9 g/dL (3.2-5.0); BUN 53 mg/dL (7-18); Calcium,Total 8.5 mg/dL (8.5-10.1); Chloride 106 mmol/L (98-107); Creatinine, Serum 3.31 mg/dL (0.55-1.02); EST Glomerular Filtration Rate 15 mL/min (>60); Est Glom Filt Rate - Afr Amer 18 mL/min (>60); Ferritin 57 ng/mL (8-252); Glucose 315 mg/dL (74-106); Iron 70 ug/dL (50-170); Iron Binding Capacity,Total 314 ug/dL (250-450); PERCENT IRON SATURATION 22.3 % (15.0-55.0); Phosphorus 4.4 mg/dL (2.5-4.9); Potassium 4.7 mmol/L (3.5-5.1); Sodium Level 141 mmol/L (136-145)
[2018-12-13 18:09] LABS: PTHIN 82.3 pg/mL (18.4-80.1)
== END ==
PROVIDERS: Family Provider Family Medicine Geriatric Medicine; PCP Family Medicine Geriatric Medicine; Visit Provider Internal Medicine Nephrology
DX: N18.5 Chronic kidney disease, stage 5 (principal); D63.8 Anemia in other chronic diseases classified elsewhere; E21.1 Secondary hyperparathyroidism, not elsewhere classified
CPT/HCPCS: 36415; 80069; 82728; 83540; 83550; 83970; 85027

== ENCOUNTER → 2019-01-31 10:06 | Outpatient (CLI) | payer MEDICARE, OTHER, SELFPAY ==
[2018-03-24 09:55] VITALS: BMI 58.5
[2019-01-31 12:16] LABS: Hematocrit 42.6 % (37-47); Hemoglobin 12.9 g/dL (12.0-15.0); Mean Corp Hgb Conc 30.3 g/dL (32-36); Mean Corpuscular Hgb 26.7 pg (27.0-32.0); Mean Platelet Vol. 10.9 fl (6.2-12.0); Platelet Count 220 K/mm3 (150-450); RBC Distribution Width CV 15.2 % (11.6-14.6); RBC Distribution Width SD 48.5 fl (35.1-43.9); Red Blood Count 4.84 M/mm3 (4.2-5.4); White Blood Count 8.1 K/mm3 (4.4-11.0)
[2019-01-31 12:38] LABS: Albumin, Serum 2.7 g/dL (3.2-5.0); BUN 58 mg/dL (7-18); BUN/Creat Ratio 17.7 RATIO (10-20); Calcium,Total 8.5 mg/dL (8.5-10.1); Chloride 110 mmol/L (98-107); Creatinine, Serum 3.28 mg/dL (0.55-1.02); EST Glomerular Filtration Rate 15 mL/min (>60); Est Glom Filt Rate - Afr Amer 18 mL/min (>60); Glucose 288 mg/dL (74-106); Phosphorus 3.9 mg/dL (2.5-4.9); Potassium 4.5 mmol/L (3.5-5.1); Sodium Level 139 mmol/L (136-145)
== END ==
PROVIDERS: Family Provider Family Medicine Geriatric Medicine; PCP Family Medicine Geriatric Medicine; Visit Provider Internal Medicine Nephrology
DX: N18.5 Chronic kidney disease, stage 5 (principal); D63.8 Anemia in other chronic diseases classified elsewhere; E21.1 Secondary hyperparathyroidism, not elsewhere classified
CPT/HCPCS: 36415; 80069; 83970; 85027

== ENCOUNTER → 2019-02-21 10:27 | Outpatient (CLI) | payer MEDICARE, OTHER, SELFPAY ==
[2018-03-24 09:55] VITALS: BMI 58.5
[2019-02-21 11:22] LABS: Absolute Lymphocyte Count 1.06 X10^3/uL (0.83-4.51); Absolute Neutrophil Count 7.4 X10^3/uL (2.0-7.7); Basophil# 0.03 X10^3/uL; Basophil% 0.3 % (0-1); Eosinophil# 0.36 X10^3/uL; Eosinophils% 3.7 % (0-5); Hematocrit 42.2 % (37-47); Hemoglobin 12.9 g/dL (12.0-15.0); Lymphocyte # 1.06 X10^3/ul (4.0); Mean Corp Hgb Conc 30.6 g/dL (32-36); Mean Corpuscular Hgb 26.9 pg (27.0-32.0); Mean Corpuscular Volume 88.1 fL (81-99); Mean Platelet Vol. 10.5 fl (6.2-12.0); Monocyte# 0.79 X10^3/uL; Monocyte% 8.2 % (0-10); NRBC Flagged by Analyzer 0 % (0-5); Neutrophil % 76.4 % (47-70); Platelet Count 244 K/mm3 (150-450); RBC Distribution Width CV 15.3 % (11.6-14.6); RBC Distribution Width SD 49.1 fl (35.1-43.9); Red Blood Count 4.79 M/mm3 (4.2-5.4); White Blood Count 9.7 K/mm3 (4.4-11.0)
[2019-02-21 11:50] LABS: ALB/GLOB Ratio 0.6 RATIO (0.9-2.4); AST(SGOT) 15 U/L (15-37); Alanine Aminotransfer ALT/SGPT 24 U/L (13-56); Albumin, Serum 2.8 g/dL (3.2-5.0); Alkaline Phosphatase 112 U/L (45-117); Anion Gap 8 (5-15); BUN 62 mg/dL (7-18); BUN/Creat Ratio 16.5 RATIO (10-20); Calcium,Total 8.8 mg/dL (8.5-10.1); Chloride 108 mmol/L (98-107); Creatinine, Serum 3.76 mg/dL (0.55-1.02); EST Glomerular Filtration Rate 13 mL/min (>60); Est Glom Filt Rate - Afr Amer 15 mL/min (>60); Globulin 4.9 g/dL (2.2-4.2); Glucose 335 mg/dL (74-106); Potassium 4.6 mmol/L (3.5-5.1); Protein, Total 7.7 g/dL (6.4-8.2); Sodium Level 140 mmol/L (136-145); Vitamin D,25 Hydroxy 50.9 ng/mL (29.95-100.01)
== END ==
PROVIDERS: Family Provider Family Medicine Geriatric Medicine; PCP Family Medicine Geriatric Medicine; Visit Provider Family Medicine Geriatric Medicine
DX: E11.9 Type 2 diabetes mellitus without complications (principal); I10 Essential (primary) hypertension; E55.9 Vitamin D deficiency, unspecified
CPT/HCPCS: 36415; 80053; 82306; 84443; 85025

== ENCOUNTER → 2019-03-29 15:15 | Outpatient (CLI) | payer MEDICARE, OTHER, SELFPAY ==
[2018-03-24 09:55] VITALS: BMI 58.5
[2019-03-29 17:44] LABS: Anion Gap 10 (5-15); BUN 59 mg/dL (7-18); BUN/Creat Ratio 14.4 RATIO (10-20); Calcium,Total 8.7 mg/dL (8.5-10.1); Chloride 106 mmol/L (98-107); EST Glomerular Filtration Rate 12 mL/min (>60); Est Glom Filt Rate - Afr Amer 14 mL/min (>60); Glucose 250 mg/dL (74-106); Potassium 4.6 mmol/L (3.5-5.1); Sodium Level 140 mmol/L (136-145)
== END ==
PROVIDERS: Family Provider Family Medicine Geriatric Medicine; PCP Family Medicine Geriatric Medicine; Visit Provider Family Medicine Geriatric Medicine
DX: I10 Essential (primary) hypertension (principal)
CPT/HCPCS: 36415; 80048

== ENCOUNTER → 2019-04-11 12:02 | Outpatient (CLI) | payer MEDICARE, OTHER, SELFPAY ==
[2019-04-11 11:58] VITALS: BMI 58.5
[2019-04-11 15:49] LABS: Hematocrit 42.8 % (37-47); Hemoglobin 12.7 g/dL (12.0-15.0); Mean Corp Hgb Conc 29.7 g/dL (32-36); Mean Corpuscular Hgb 26.7 pg (27.0-32.0); Mean Corpuscular Volume 89.9 fL (81-99); Mean Platelet Vol. 11.1 fl (6.2-12.0); Platelet Count 293 K/mm3 (150-450); RBC Distribution Width CV 15.9 % (11.6-14.6); RBC Distribution Width SD 52.3 fl (35.1-43.9); Red Blood Count 4.76 M/mm3 (4.2-5.4); White Blood Count 8.6 K/mm3 (4.4-11.0)
[2019-04-11 16:05] LABS: Vitamin D,25 Hydroxy 54.8 ng/mL (29.95-100.01)
[2019-04-11 16:18] LABS: Albumin, Serum 3.2 g/dL (3.2-5.0); BUN 58 mg/dL (7-18); BUN/Creat Ratio 12.7 RATIO (10-20); Calcium,Total 9.1 mg/dL (8.5-10.1); Chloride 108 mmol/L (98-107); Creatinine, Serum 4.55 mg/dL (0.55-1.02); EST Glomerular Filtration Rate 10 mL/min (>60); Est Glom Filt Rate - Afr Amer 12 mL/min (>60); Glucose 49 mg/dL (74-106); Phosphorus 5.4 mg/dL (2.5-4.9); Sodium Level 142 mmol/L (136-145)
[2019-04-12 08:58] LABS: PTHIN 139.5 pg/mL (18.4-80.1)
== END ==
PROVIDERS: Family Provider Family Medicine Geriatric Medicine; PCP Family Medicine Geriatric Medicine; Visit Provider Internal Medicine Nephrology
DX: N18.5 Chronic kidney disease, stage 5 (principal); E21.1 Secondary hyperparathyroidism, not elsewhere classified; E55.9 Vitamin D deficiency, unspecified
CPT/HCPCS: 36415; 80069; 82306; 83970; 85027

== ENCOUNTER → 2019-04-25 14:24 | Outpatient (CLI) | payer MEDICARE, OTHER, SELFPAY ==
[2019-04-11 14:23] VITALS: BMI 62.1
--- NOTE | 2019-04-25 14:33 | RAD_ITS ---
STUDY: X-RAY CHEST REASON FOR EXAM: Female, 68 years old. Fluid overload, pulmonary edema. TECHNIQUE: PA and lateral views of the chest on 3 images. COMPARISON: Portable AP upright chest x-ray January 31, 2016. FINDINGS: The lungs are under expanded and there is some vascular crowding that accentuates the interstitial and vascular markings in those areas. No acute consolidating infiltrate. There is no demonstrated pleural abnormality. There is stable cardiac enlargement with a left ventricular configuration. Normal mediastinum and negrito. Normal visualized biapical pulmonary arteries. There is stable minor atherosclerotic calcification of the aortic arch. There are stable degenerative changes of the visualized thoracic spine. There is degenerative osteoarthritis of the bilateral acromioclavicular joints. There is no demonstrated abnormality of the visualized soft tissue structures of the upper abdomen. RAD/Chest PA and Lateral IMPRESSION: Stable cardiac enlargement with bibasilar vascular crowding. No acute consolidating infiltrate or pulmonary edema. Electronically Signed: Dave Booth MD at 17:16 EST , Service support ,
[2019-04-25 18:04] LABS: Anion Gap 8 (5-15); BUN 80 mg/dL (7-18); BUN/Creat Ratio 16.6 RATIO (10-20); Calcium,Total 8.7 mg/dL (8.5-10.1); Chloride 109 mmol/L (98-107); Creatinine, Serum 4.81 mg/dL (0.55-1.02); EST Glomerular Filtration Rate 10 mL/min (>60); Est Glom Filt Rate - Afr Amer 12 mL/min (>60); Glucose 55 mg/dL (74-106); Potassium 4.7 mmol/L (3.5-5.1); Sodium Level 139 mmol/L (136-145)
[2019-04-25 18:07] LABS: Absolute Lymphocyte Count 0.86 X10^3/uL (0.83-4.51); Absolute Neutrophil Count 4.8 X10^3/uL (2.0-7.7); Basophil# 0.04 X10^3/uL; Basophil% 0.6 % (0-1); Eosinophil# 0.62 X10^3/uL; Eosinophils% 8.8 % (0-5); Hemoglobin 11.3 g/dL (12.0-15.0); Lymphocyte # 0.86 X10^3/ul (4.0); Lymphocyte % 12.2 % (19-41); Mean Corp Hgb Conc 29.7 g/dL (32-36); Mean Corpuscular Hgb 26.8 pg (27.0-32.0); Mean Corpuscular Volume 90.3 fL (81-99); Mean Platelet Vol. 10.3 fl (6.2-12.0); Monocyte# 0.65 X10^3/uL; Monocyte% 9.2 % (0-10); NRBC Flagged by Analyzer 0 % (0-5); Neutrophil # 4.83 X10^3/uL (2.7-7.7); Neutrophil % 68.2 % (47-70); Platelet Count 301 K/mm3 (150-450); RBC Distribution Width CV 16.4 % (11.6-14.6); RBC Distribution Width SD 53.9 fl (35.1-43.9); Red Blood Count 4.21 M/mm3 (4.2-5.4); White Blood Count 7.1 K/mm3 (4.4-11.0)
[2019-04-25 18:15] LABS: BNP,B-Type NATRIURETIC PEPTIDE 103.7 pg/mL (0-100)
== END ==
PROVIDERS: Family Provider Family Medicine Geriatric Medicine; PCP Family Medicine Geriatric Medicine; Referring Provider Family Medicine Geriatric Medicine; Visit Provider Family Medicine Geriatric Medicine
DX: J81.0 Acute pulmonary edema (principal); R06.09 Other forms of dyspnea
CPT/HCPCS: 36415; 71046; 80048; 83880; 85025

== ENCOUNTER → 2019-04-26 11:46 | Outpatient (CLI) | payer MEDICARE, OTHER, SELFPAY ==
[2019-04-11 14:23] VITALS: BMI 62.1
[2019-04-26 13:07] LABS: Hepatitis B Surface Antigen Non-Reactive (Nonreactive)
== END ==
PROVIDERS: Family Provider Family Medicine Geriatric Medicine; PCP Family Medicine Geriatric Medicine; Visit Provider Internal Medicine Nephrology
DX: N18.6 End stage renal disease (principal)
CPT/HCPCS: 36415; 87340

== ENCOUNTER → 2019-05-04 16:43 | Outpatient (CLI) | payer MEDICARE, OTHER, SELFPAY ==
[2019-04-11 14:23] VITALS: BMI 62.1
--- NOTE | 2019-05-04 17:05 | RAD_ITS ---
STUDY: X-RAY CHEST REASON FOR EXAM: Female, 68 years old. Chronic bronchitis, cough TECHNIQUE: PA and lateral views of the chest. COMPARISON: Previous study of 04/25/2019 FINDINGS: There is bilateral perihilar peribronchial cuffing. There are streaky fibrotic or atelectatic changes of the left lung base. There is no demonstrated pleural abnormality. There is mild cardiac enlargement. Normal mediastinum and negrito. Normal visualized pulmonary arteries. Normal visualized aortic arch and descending thoracic aorta. Normal visualized thoracic spine. Normal visualized ribs, clavicles, and shoulders. There is no demonstrated abnormality of the visualized soft tissue structures of the upper abdomen. RAD/Chest PA and Lateral IMPRESSION: Bilateral perihilar peribronchial cuffing which may be associated with bronchitis or bronchospasm disease. There are streaky fibrotic or atelectatic changes of the left lung base, stable in the interval. Mild cardiomegaly. Electronically Signed: Carroll Pandey MD at 23:08 EST , Service support ,
== END ==
PROVIDERS: Family Provider Family Medicine Geriatric Medicine; PCP Family Medicine Geriatric Medicine; Referring Provider Family Medicine Geriatric Medicine; Visit Provider Family Medicine Geriatric Medicine
DX: J41.0 Simple chronic bronchitis (principal); R68.83 Chills (without fever)
CPT/HCPCS: 71046

== ENCOUNTER → 2019-05-17 11:29 | Outpatient (CLI) | payer MEDICARE, OTHER, SELFPAY ==
[2019-04-11 14:23] VITALS: BMI 62.1
[2019-05-17 12:35] LABS: Absolute Lymphocyte Count 1.12 X10^3/uL (0.83-4.51); Absolute Neutrophil Count 5.3 X10^3/uL (2.0-7.7); Basophil# 0.04 X10^3/uL; Basophil% 0.5 % (0-1); Eosinophil# 0.19 X10^3/uL; Eosinophils% 2.6 % (0-5); Hematocrit 41.1 % (37-47); Hemoglobin 12.2 g/dL (12.0-15.0); Lymphocyte # 1.12 X10^3/ul (4.0); Lymphocyte % 15.3 % (19-41); Mean Corp Hgb Conc 29.7 g/dL (32-36); Mean Corpuscular Hgb 27.2 pg (27.0-32.0); Mean Corpuscular Volume 91.5 fL (81-99); Mean Platelet Vol. 11.2 fl (6.2-12.0); Monocyte# 0.66 X10^3/uL; NRBC Flagged by Analyzer 0 % (0-5); Neutrophil # 5.26 X10^3/uL (2.7-7.7); Neutrophil % 72.1 % (47-70); Platelet Count 199 K/mm3 (150-450); RBC Distribution Width CV 16.4 % (11.6-14.6); RBC Distribution Width SD 54.1 fl (35.1-43.9); Red Blood Count 4.49 M/mm3 (4.2-5.4); White Blood Count 7.3 K/mm3 (4.4-11.0)
[2019-05-17 13:09] LABS: ALB/GLOB Ratio 0.6 RATIO (0.9-2.4); AST(SGOT) 17 U/L (15-37); Alanine Aminotransfer ALT/SGPT 37 U/L (13-56); Albumin, Serum 2.7 g/dL (3.2-5.0); Alkaline Phosphatase 112 U/L (45-117); Anion Gap 9 (5-15); BUN 34 mg/dL (7-18); Calcium,Total 7.9 mg/dL (8.5-10.1); Chloride 101 mmol/L (98-107); Creatinine, Serum 3.08 mg/dL (0.55-1.02); EST Glomerular Filtration Rate 16 mL/min (>60); Est Glom Filt Rate - Afr Amer 19 mL/min (>60); Globulin 4.3 g/dL (2.2-4.2); Glucose 380 mg/dL (74-106); Phosphorus 3.3 mg/dL (2.5-4.9); Potassium 4.3 mmol/L (3.5-5.1); Sodium Level 136 mmol/L (136-145); Thyroid Stim Hormone (TSH) 7.38 uIU/mL (0.358-3.74)
[2019-05-17 13:17] LABS: Vitamin D,25 Hydroxy 47.4 ng/mL (29.95-100.01)
[2019-05-17 13:47] LABS: PTHIN 377.2 pg/mL (18.4-80.1)
== END ==
PROVIDERS: Family Provider Family Medicine Geriatric Medicine; PCP Family Medicine Geriatric Medicine; Visit Provider Internal Medicine Nephrology
DX: E11.9 Type 2 diabetes mellitus without complications (principal); E55.9 Vitamin D deficiency, unspecified; I10 Essential (primary) hypertension
CPT/HCPCS: 36415; 80053; 82306; 83970; 84100; 84443; 85025

== ENCOUNTER → 2019-06-28 15:22 | Outpatient (CLI) | payer MEDICARE, OTHER, SELFPAY ==
[2019-04-11 14:23] VITALS: BMI 62.1
== END ==
PROVIDERS: PCP Family Medicine Geriatric Medicine; Referring Provider Family Medicine Geriatric Medicine; Visit Provider Family Medicine Geriatric Medicine
DX: R50.9 Fever, unspecified (principal)
CPT/HCPCS: 87633

== ENCOUNTER → 2019-10-18 13:36 | Outpatient (CLI) | payer MEDICARE, OTHER, SELFPAY ==
[2019-04-11 14:23] VITALS: BMI 62.1
--- NOTE | 2019-10-18 13:39 | ECHOCS_ITS ---
Version 2 Reason For Study: DYSPNEA Procedure This was a 2D Doppler, Color Flow transthoracic echocardiogram. The exam was of poor technical quality due to body habitus. Contrast injection was performed. The study was technically limited. Exam performed in department. Left Ventricle Normal LV size. The estimated ejection fraction is 75 %. Unable to assess diastolic dysfunction. No regional wall motion abnormalities noted. Right Ventricle Normal RV size. Normal systolic function. Atria Normal left atrium. Normal right atrium. No doppler evidence for ASD. Mitral Valve There is moderate mitral annular calcification. Moderate mitral valve stenosis. No mitral valve insufficiency. Tricuspid Valve There is no tricuspid stenosis. Trivial tricuspid valve insufficiency. Unable to estimate RV systolic pressure due to insufficient tricuspid regurgitant envelope. Aortic Valve Aortic sclerosis, no stenosis. There is no aortic stenosis. No aortic valve insufficiency. Pulmonic Valve There is no pulmonic valvular stenosis. No pulmonic valve insufficiency. Great Vessels Normal aortic root. Pericardium/Pleural No pericardial effusion. MMode/2D Measurements & Calculations LVIDd: 4.0 cm IVSd: 1.2 cm Ao root diam: 3.2 cm LVIDs: 2.3 cm LVPWd: 1.2 cm FS: 42.0 % LAV(MOD-bp): 94.4 ml LVAd ap4: 33.8 cm2 SV(MOD-sp4): 89.3 ml LAV(MOD-bp) Indexed: 39.2 ml/m2 EDV(MOD-sp4): 114.0 ml LAV(MOD-sp2): 74.9 ml EDV(sp4-el): 115.9 ml LAV(MOD-sp4): 113.4 ml LVAs ap4: 13.7 cm2 ESV(MOD-sp4): 24.8 ml ESV(sp4-el): 25.3 ml EF(MOD-sp4): 78.3 % EF(sp4-el): 78.2 % SV(sp4-el): 90.6 ml LA A4 area: 30.6 cm2 LA dimension(2D): 4.6 cm Time Measurements MV dec time: 0.36 sec Doppler Measurements & Calculations MV E max hipolito: 143.7 cm/sec Lat Peak E' Hipolito: 2.9 cm/sec Med Peak E' Hipolito: 3.5 cm/sec MV A max hipolito: 159.4 cm/sec E/E' lat: 49.5 E/E' med: 40.5 MV E/A: 0.90 MV V2 max: 196.6 cm/sec Ao V2 max: 196.3 cm/sec LV V1 max: 95.3 cm/sec MV max P.5 mmHg Ao max P.4 mmHg LV V1 max P.6 mmHg MV V2 mean: 146.5 cm/sec MV mean P.1 mmHg MV V2 VTI: 58.1 cm TR max hipolito: 203.0 cm/sec MV P1/2t-pr_phl: 99.8 msec TR max P.5 mmHg Interpretation Summary The estimated ejection fraction is 75 %. Unable to assess diastolic dysfunction. Moderate mitral valve stenosis. There is moderate mitral annular calcification. The study was technically difficult. Contrast injection was performed. Ordering Physician: Pardeep Thomposn Referring Physician: MYRNA LINO CHI Performed By: Olamide Eduardo, SARAVANAN, RVT
== END ==
PROVIDERS: PCP Family Medicine Geriatric Medicine; Referring Provider Specialist; Visit Provider Specialist
DX: R06.00 Dyspnea, unspecified (principal)
CPT/HCPCS: 93306; Q9957; A4216; C8929

== ENCOUNTER → 2019-10-18 15:16 | Outpatient (CLI) | payer MEDICARE, OTHER, SELFPAY ==
[2019-04-11 14:23] VITALS: BMI 62.1
[2019-10-18 16:18] LABS: Absolute Lymphocyte Count 1.19 X10^3/uL (0.83-4.51); Absolute Neutrophil Count 4.4 X10^3/uL (2.0-7.7); Basophil# 0.03 X10^3/uL; Basophil% 0.5 % (0-1); Eosinophil# 0.19 X10^3/uL; Hematocrit 44.9 % (37-47); Hemoglobin 13.8 g/dL (12.0-15.0); Lymphocyte # 1.19 X10^3/ul (4.0); Lymphocyte % 18.5 % (19-41); Mean Corp Hgb Conc 30.7 g/dL (32-36); Mean Corpuscular Hgb 30.7 pg (27.0-32.0); Mean Platelet Vol. 10.9 fl (6.2-12.0); Monocyte# 0.59 X10^3/uL; Monocyte% 9.2 % (0-10); NRBC Flagged by Analyzer 0 % (0-5); Neutrophil # 4.38 X10^3/uL (2.7-7.7); Neutrophil % 67.9 % (47-70); Platelet Count 227 K/mm3 (150-450); RBC Distribution Width CV 16.2 % (11.6-14.6); RBC Distribution Width SD 59.3 fl (35.1-43.9); Red Blood Count 4.49 M/mm3 (4.2-5.4); White Blood Count 6.4 K/mm3 (4.4-11.0)
[2019-10-18 16:52] LABS: Anion Gap 8 (5-15); BUN 30 mg/dL (7-18); BUN/Creat Ratio 7.3 RATIO (10-20); Calcium,Total 8.3 mg/dL (8.5-10.1); Chloride 93 mmol/L (98-107); Cholesterol 119 mg/dL (200); EST Glomerular Filtration Rate 12 mL/min (>60); Est Glom Filt Rate - Afr Amer 14 mL/min (>60); Glucose 530 mg/dL (74-106); High Density Lipoprotein 35 mg/dL; Potassium 4.3 mmol/L (3.5-5.1); Sodium Level 130 mmol/L (136-145); Triglycerides 352 mg/dL; Very Low Density Lipoprotein 70 mg/dL (5-40)
== END ==
PROVIDERS: PCP Family Medicine Geriatric Medicine; Visit Provider Family Medicine Geriatric Medicine
DX: I10 Essential (primary) hypertension (principal); E55.9 Vitamin D deficiency, unspecified; F05 Delirium due to known physiological condition; I05.0 Rheumatic mitral stenosis; R60.0 Localized edema; R06.00 Dyspnea, unspecified
CPT/HCPCS: 36415; 80048; 85025; 93306; Q9957; A4216; C8929

== ENCOUNTER 2019-11-02 16:01 | Emergency (ER) | payer MEDICARE, OTHER, SELFPAY ==
[2019-04-11 14:23] VITALS: BMI 62.1
[2019-11-02 16:02] VITALS: BP 149/40; PULSE 79; RESP 18; TEMP 36.6; O2SAT 90; BMI 62.1
--- NOTE | 2019-11-02 16:25 | ED.DCSUM_ITS ---
History of Present Illness Chief Complaint: Cellulitis Narrative: Patient presenting for evaluation due to concern for cellulitis. Patient has an underlying history of end-stage renal disease, is on dialysis Wednesday and Wednesday. Patient significant other states that he noticed that she had some blisters on her right leg on Wednesday. This was noted when she went to dialysis, they started some generalized wound care, and instructed her to follow-up as needed. Patient since Wednesday has had progression of this rash, and now has redness going up to about her mid pete. She denies that this is painful. She denies any fevers associated with this. When seen today at dialysis they recommended that she come to the emergency department, but the patient does have a course of Augmentin called into her which she picked up but has not started yet. Review of systems otherwise negative Past Medical History - Allergies and Home Meds Allergies/Adverse Reactions: Allergies No Known Allergies Allergy (Verified 04/11/19 14:29) Primary Care Physician: Emeka Kramer Chi, MD [Primary Care Provider] - Prior records reviewed: Yes Past Medical History: - - End-stage renal disease on dialysis Surgical History: cataract, cholecystectomy, herniorrhaphy, - - wrist fx, AV fistula Smoking Status: Former smoker - Family History Paternal Family History: Family History (Last Reviewed 04/11/19 @ 15:[address] Pardeep Thompson MD) Sister Breast cancer Mother Breast cancer Grandmother Cancer Family History: Reports: Unknown Maternal Family History: Family History (Last Reviewed 04/11/19 @ 15:[address] Pardeep Thompson MD) Sister Breast cancer Mother Breast cancer Grandmother Cancer Family History: Reports: Diabetes, Heart Disease, Hypertension Review of Systems All systems negative except as indicated General: Denies: Chills, Fever, Sweats Eyes: Denies: Visual changes - bilaterally, Diplopia ENT: Denies: Rhinorrhea, Sore throat Cardiovascular: Denies: Chest pain, Palpitations Respiratory: Denies: Dyspnea, Cough, Dyspnea on exertion Gastrointestinal: Denies: Abdominal pain, Nausea, Vomiting, Diarrhea, Melena, Hematochezia Genitourinary: Denies: Dysuria, Hematuria, Frequency Musculoskeletal: Denies: Back pain, Extremity Pain Skin: Reports: Rash Neurological: Denies: Headache, Weakness, Numbness Physical Exam Vital Signs/Narrative: Vital Signs Temp Pulse Resp BP Pulse Ox 11/02/19 16:02 97.8 F 79 18 149/40 H 90 Inital Vital Signs reviewed: Yes General: Well nourished, Well developed, Obese, No Acute Distress Head: Normocephalic, Atraumatic Eyes: Perrl, EOMI ENT: Moist mucous membranes, No rhinorrhea Neck: Supple, Nontender Cardiovascular: Regular rate, Regular rhythm, No murmurs Respiratory: No distress, CTA bilaterally, Chest nontender Abdomen: Soft, Nontender, Nondistended, Normal bowel sounds Back: Nontender, Normal Inspection Extremities: - - Left upper extremity shows a AV fistula in the forearm with palpable thrill. Lower extremity exam shows significant erythema over the pretibial area on the right leg with extension going up to about the mid pete. There is a small amount of erythema on the pretibial area of the left leg. No s ubcutaneous emphysema. No lymphangitic streaking. No tenderness to palpation. No fluctuance is noted. Skin: Normal color, No rash Neurological: Alert, Oriented x3, Cranial nerves II-XII grossly intact, Normal Strength, Normal Sensation Psychological: Normal affect, Normal Mood Diagnostic/Tx/Re-eval - Medical Decision Making Patient presented with a rash on her lower legs. This does appear to be cellulitis. Patient has a prescription for Augmentin that was already provided to her, that she has not started yet. She has any been failed outpatient treatment, she is nontoxic with a normal blood pressure and normal heart rate and she is not febrile. I do not feel the laboratory work-up is indicated on this patient. Patient was instructed to start taking her course of Augmentin, I did contact her primary care physician who agrees to follow the patient closely. Patient understands signs and symptoms which to return. She was discharged in stable condition. ED Disposition - Plan for ED Patient: Disposition: Home or Assisted Living Diagnosis: Cellulitis of right leg Instructions: Cellulitis Referrals: Emeka Kramer Chi, MD [Primary Care Provider] - 2 Days for wound check
== END 2019-11-02 17:10 | disposition home or self-care (01) ==
LOC: ED 16:49
PROVIDERS: Emergency Provider Emergency Medicine; PCP Family Medicine Geriatric Medicine
DX: L03.115 Cellulitis of right lower limb (principal); N18.6 End stage renal disease; Z99.2 Dependence on renal dialysis; Z79.82 Long term (current) use of aspirin; Z79.899 Other long term (current) drug therapy; Z87.891 Personal history of nicotine dependence
CPT/HCPCS: 99282

== ENCOUNTER → 2019-11-03 11:39 | Outpatient (CLI) | payer MEDICARE, OTHER, SELFPAY ==
[2019-11-02 16:02] VITALS: BMI 62.1
[2019-11-03 16:52] LABS: M R Staph aureus DNA By PCR Negative (Negative); Probe Check PASS; Specimen Processing Control PASS; Staph aureus DNA By PCR NEGATIVE (Negative)
== END ==
LOC: POLAB3 11:41 → LABSPEC 11:42
PROVIDERS: PCP Family Medicine Geriatric Medicine; Visit Provider Family Medicine Geriatric Medicine
DX: S81.801A Unspecified open wound, right lower leg, initial encounter (principal); B95.62 Methicillin resistant Staphylococcus aureus infection as the cause of diseases classified elsewhere
CPT/HCPCS: 87070; 87077; 87186; 87205; 87640

== ENCOUNTER → 2019-12-18 12:17 | Outpatient (CLI) | payer MEDICARE, OTHER, SELFPAY ==
[2019-12-20 14:01] LABS: Vitamin D,25 Hydroxy 40.1 ng/mL
== END ==
PROVIDERS: PCP Family Medicine Geriatric Medicine; Visit Provider Family Medicine Geriatric Medicine
DX: E11.9 Type 2 diabetes mellitus without complications (principal); I10 Essential (primary) hypertension; E55.9 Vitamin D deficiency, unspecified
CPT/HCPCS: 36415; 82306; 84443

== ENCOUNTER 2020-01-11 14:24 | Inpatient (IN) | payer MEDICARE, OTHER, SELFPAY ==
[2020-01-03 08:53] VITALS: BMI 62.1
[2020-01-11] VITALS (21 sets, daily range): BP systolic 95–181; BP diastolic 37–85; PULSE 86–98; RESP 15–28; TEMP 36.1–38.1; O2SAT 88–98; BMI 64.0; BMI 64.7; BMI 64.8
--- NOTE | 2020-01-11 14:32 | EKG12_ITS ---
Test Reason : DYSRHYTHMIA Blood Pressure : / mmHG Vent. Rate : 116 BPM Atrial Rate : 092 BPM P-R Int : 166 ms QRS Dur : 098 ms QT Int : 372 ms P-R-T Axes : 050 104 010 degrees QTc Int : 517 ms Sinus rhythm with frequent Premature ventricular complexes Possible Left atrial enlargement Incomplete right bundle branch block Possible Right ventricular hypertrophy Abnormal ECG Confirmed by EVERETT PINZON ([id number]), desk editor KENZIE LICONA ([id number]) on 01/15/2020 2:09:27 PM Referred By: PAUL Confirmed By:EVERETT PINZON
--- NOTE | 2020-01-11 14:44 | CT_ITS ---
STUDY: CT ABDOMEN AND PELVIS WITHOUT CONTRAST REASON FOR EXAM: Female, 69 years old. CELLULITIS OF ABDOMINAL WALL. R/O NECROTIZING INFECTION. RADIATION DOSAGE (If Supplied By Facility): CTDIvol = ( 24.27 ) mGy, DLP = ( 2322.01 ) mGycm TECHNIQUE: Transaxial images were obtained from the dome of the diaphragm to the symphysis pubis without oral contrast, and without intravenous contrast. Sagittal and coronal images were reconstructed. Individualized dose optimization techniques were used for this CT. COMPARISON: Previous study of 10/13/2013. FINDINGS: The entire girth of the patient is not included in the [id number] of the study. The visualized lung bases are unremarkable. The visualized portions of the heart are within normal limits. Normal liver. There are surgical clips in the gallbladder fossa consistent with a prior cholecystectomy. Normal spleen. Normal pancreas. Normal bilateral adrenal glands. The right kidney is slightly lobular in contour but otherwise unremarkable. The left kidney is absent. Normal visualized stomach. Normal small intestine. There is colonic diverticulosis most severely affecting the sigmoid. There is no evidence of associated diverticulitis. The appendix is visualized and appears normal. There are calcified plaques of the abdominal aorta and common iliac arteries. Normal inferior vena cava. Normal retroperitoneum. A KAT catheter is seen within a decompressed urinary bladder. The uterus is atrophic in accordance with patient''s age. There is mild skin thickening and subcutaneous fatty stranding of the patient''s lower right pelvic pannus. There is no evidence of soft tissue gas or abnormal fluid collection. There is mild endplate spondylosis of the visualized thoracolumbar spine. CT/Abdomen/Pelvis W IV Cont ONLY IMPRESSION: 1. Status post cholecystectomy. 2. The left kidney is absent. 3. Colonic diverticulosis most severely affecting the sigmoid. There is no evidence of associated diverticulitis. 4. KAT catheter present within a decompressed urinary bladder. 5. Mild skin thickening and subcutaneous fatty stranding of the patient''s lower right pelvic pannus. There is no evidence of soft tissue gas or abnormal soft tissue fluid collection. Findings are compatible with cellulitis. 6. There is no evidence of free intra-abdominal or intrapelvic air or fluid. 7. The entire girth of the patient''s abdomen is not included in the [id number] of this study. Electronically Signed: Carroll Pandey MD at 16:41 EDT , Service support ,
--- NOTE | 2020-01-11 14:48 | ED.VIS.GEN ---
History of Present Illness Chief Complaint: Cellulitis Informant: Patient, PCP Narrative: Patient is a 69-year-old female with a history of ESRD on dialysis, hypertension, hyperlipidemia, diabetes, CVA who presents to the emergency department from the transitional care unit for cellulitis/sepsis. Yesterday she noted that she had a fever and shaking chills. Has been taking Tylenol for this. She developed a rash over the abdomen over the past couple of days that has been progressively getting worse. It is very tender to touch, warm and red. She is getting over a yeast infection for which she was taking oral and topical treatment for this. This is around the area where she has developed the cellulitis. She also does insulin injections at this site. She denies ever having this happen before in the past. She is having a bit of a lower extremity cellulitis that she was treated with antibiotics for over a month ago for the family at bedside. Patient does have chronic shortness of breath which is no worse than normal. She denies any cough. She is currently denying any nausea vomiting. She does occasionally get diarrhea with dialysis. She is on a Wednesday, , Wednesday schedule. She did not go to dialysis today yet. Denies any chest pain. No known sick contacts. Past Medical History - Allergies and Home Meds Allergies/Adverse Reactions: Allergies No Known Allergies Allergy (Verified 01/11/20 14:25) Primary Care Physician: Emeka Kramer Chi, MD [Primary Care Provider] - Past Medical History: - - Diabetes, ESRD, hypertension, hyperlipidemia, CVA Surgical History: cataract, cholecystectomy, herniorrhaphy, - - wrist fx, AV fistula Smoking Status: Former smoker - Family History Paternal Family History: Family History (Last Reviewed 01/03/20 @ 08:32 by Danette Marques) Sister Breast cancer Mother Breast cancer Grandmother Cancer Family History: Reports: Unknown Maternal Family History: Family History (Last Reviewed 01/03/20 @ 08:32 by Danette Marques) Sister Breast cancer Mother Breast cancer Grandmother Cancer Family History: Reports: Diabetes, Heart Disease, Hypertension Review of Systems All systems negative except as indicated General: Reports: Chills, Fever, Sweats Eyes: Denies: Visual changes - bilaterally - Chronic vision loss ENT: Denies: Rhinorrhea, Sore throat Cardiovascular: Denies: Chest pain, Palpitations Respiratory: Reports: Dyspnea - At baseline. Denies: Cough, Dyspnea on exertion Gastrointestinal: Reports: Abdominal pain. Denies: Nausea, Vomiting, Diarrhea, Melena, Hematochezia Genitourinary: Denies: Dysuria, Hematuria, Frequency Musculoskeletal: Denies: Back pain, Extremity Pain Skin: Reports: Rash. Denies: Wounds Neurological: Denies: Headache, Weakness, Numbness Physical Exam Vital Signs/Narrative: Vital Signs Temp Pulse Resp BP Pulse Ox 01/11/20 14:26 97 F L 90 16 119/37 L 96 Inital Vital Signs reviewed: Yes General: Obese - Morbidly, No Acute Distress Head: Normocephalic, Atraumatic Eyes: Perrl, EOMI ENT: Moist mucous membranes, No rhinorrhea Neck: Supple, Nontender Cardiovascular: Regular rate, Regular rhythm, No murmurs Respiratory: No distress, CTA bilaterally, Chest nontender Abdomen: Soft, Nondistended, - - Patient has diffuse cellulitis over lower half of abdomen extending down under pannus. This does not extend to the groin. No crepitus appreciated. She does have significant pain with palpation over this entire area. No obvious abscess palpable. Back: Nontender, Normal Inspection Extremities: Nontender Skin: Negative for: Jaundice, No Trauma Neurological: Alert, Oriented x3, Cranial nerves II-XII grossly intact, Normal Strength, Normal Sensation Psychological: Normal affect, Normal Mood Diagnostic/Tx/Re-eval - EKG Initial EKG Interpretation: - - Rate of 116 bpm and normal sinus rhythm. QTC of 517 otherwise normal intervals. Normal axis. No ST elevations or depressions appreciated. T wave inversions in lead III and V1. - Medical Decision Making Patient presents to emergency department for suspected sepsis secondary to abdominal wall cellulitis. With a history of this significant pain on exam will get a CT scan of the abdomen to evaluate for any necrotizing infection. Patient has not gone through dialysis today. Will need this shortly after getting the contrast. She is started on IV fluids and antibiotics. She has been having shaking chills at home. Did take Tylenol just prior to arrival in the ED. Lactic acid blood cultures are currently being obtained as well. Patient's lactate did come back mildly elevated. She is given a bolus of normal saline. Did not do the 30 mL/kg as she is responding well to the initial bolus and did not want to fluid overload her. She will require dialysis for the contrast and today is rescheduled today anyway. I did discuss this with the hospitalist. She was started on vancomycin and Zosyn given her risk factors for severe infection. CT scan did not show any evidence of necrotizing infection or gas producing organism. Patient otherwise has been stable throughout ED stay. Will bring into the hospital for further evaluation and management. She understands and is agreeable with this plan. ED Disposition - Plan for ED Patient: Disposition: Acute Care Hospital [facility] Diagnosis: Cellulitis, Severe sepsis Referrals: Emeka Kramer Chi, MD [Primary Care Provider] -
[2020-01-11 15:14] LABS: Absolute Lymphocyte Count 0.69 X10^3/uL (0.83-4.51); Absolute Neutrophil Count 10.1 X10^3/uL (2.0-7.7); Basophil# 0.02 X10^3/uL; Basophil% 0.2 % (0-1); Eosinophil# 0.02 X10^3/uL; Eosinophils% 0.2 % (0-5); Hemoglobin 12.6 g/dL (12.0-15.0); Lymphocyte # 0.69 X10^3/ul (4.0); Lymphocyte % 6.1 % (19-41); Mean Corp Hgb Conc 31.5 g/dL (32-36); Mean Corpuscular Hgb 31.5 pg (27.0-32.0); Mean Platelet Vol. 10.3 fl (6.2-12.0); Monocyte# 0.45 X10^3/uL; NRBC Flagged by Analyzer 0 % (0-5); Neutrophil # 10.06 X10^3/uL (2.7-7.7); Neutrophil % 89.1 % (47-70); Platelet Count 226 K/mm3 (150-450); RBC Distribution Width CV 15.6 % (11.6-14.6); RBC Distribution Width SD 57.6 fl (35.1-43.9); White Blood Count 11.3 K/mm3 (4.4-11.0)
[2020-01-11 15:31] LABS: ALB/GLOB Ratio 0.6 RATIO (0.9-2.4); AST(SGOT) 14 U/L (15-37); Alanine Aminotransfer ALT/SGPT 17 U/L (13-56); Albumin, Serum 2.8 g/dL (3.2-5.0); Alkaline Phosphatase 71 U/L (45-117); Anion Gap 10 (5-15); BUN 56 mg/dL (7-18); Calcium,Total 8.6 mg/dL (8.5-10.1); Chloride 97 mmol/L (98-107); Creatinine, Serum 7.03 mg/dL (0.55-1.02); EST Glomerular Filtration Rate 6 mL/min (>60); Est Glom Filt Rate - Afr Amer 8 mL/min (>60); Estimated Creatinine Clearance 6.14 ml/min; Globulin 4.6 g/dL (2.2-4.2); Glucose 259 mg/dL (74-106); Potassium 4.7 mmol/L (3.5-5.1); Protein, Total 7.4 g/dL (6.4-8.2); Sodium Level 135 mmol/L (136-145)
[2020-01-11 15:43] LABS: Bacteria 0 SEEN /hpf (None Seen); Mucous, Urine 0 SEEN /hpf (<or=2+); Red Blood Cells-Urine 0 SEEN /hpf (0-5); Squamous Epithelial Cells - UA 0 SEEN /hpf (5-10)
[2020-01-11] MEDS: 0.9% Normal Saline 1,000 ML 999 ML IV (15:45)
--- NOTE | 2020-01-11 15:51 | ED.RN ---
antibiotics paused for ct with contrast. dr johnson consulted on creatine of 7.03 and kidney dialysis. approved for test. jesse moran rn [id number]
[2020-01-11 15:52] LABS: Lactic Acid 2.3 mmol/L (0.4-1.9)
[2020-01-11 15:53] LABS: Color, Urine Yellow (Yellow); Glucose, Dipstick 100 mg/dl (Normal); Ketone-Dipstick 5 mg/dl (Negative); Leukocyte Esterase-Dipstick 500 /ul (Negative); Nitrite-Dipstick Negative (Negative); Occult Blood-Urine 50 /ul (Negative); Protein-Dipstick 100 mg/dl (Negative); Urine Bilirubin Dipstick Negative (Negative); Urine Clarity Cloudy (Clear); Urine Urobilinogen Normal (Normal)
--- NOTE | 2020-01-11 16:00 | RAD_ITS ---
STUDY: X-RAY CHEST REASON FOR EXAM: Female, 69 years old. shortness of breath, cough, cellulitis TECHNIQUE: Single AP portable view of the chest. COMPARISON: Previous study of 05/04/2019 FINDINGS: The lungs are clear and expanded. There is no demonstrated pleural abnormality. Normal size heart. Normal mediastinum and negrito. Normal visualized pulmonary arteries. Normal visualized aortic arch and descending thoracic aorta. Normal visualized thoracic spine. Normal visualized ribs, clavicles, and shoulders. There is no demonstrated abnormality of the visualized soft tissue structures of the upper abdomen. RAD/Chest 1 View (Portable) IMPRESSION: Normal x-ray examination of the chest. Electronically Signed: Carroll Pandey MD at 16:20 EDT , Service support ,
[2020-01-11 16:03] LABS: White Blood Cells >100 SEEN /hpf (0-5)
--- NOTE | 2020-01-11 17:29 | PCM.HP.STD ---
Problem List (1) Cellulitis Status: Acute (2) Severe sepsis Status: Acute (3) Pedal edema Status: Chronic Comment: Continue Lasix. Will monitor. (4) Shortness of breath Status: Chronic Comment: This is chronic and stable. We are checking an echo in 6 months to evaluate for progression of her mitral stenosis. At this time it appears to be related to her significant obesity. Discussed weight loss with the patient. (5) Preoperative cardiovascular examination Status: Acute Comment: At this time patient seems to be stable from a cardiac standpoint. She is at low risk for perioperative cardiac complications during eye surgery. She does not need any further preoperative cardiovascular testing. (6) Mitral stenosis Status: Chronic Qualifiers: Cardiac valve disease etiology: etiology unspecified Qualified Code(s): I05.0 - Rheumatic mitral stenosis (7) Hyperlipidemia Status: Chronic (8) Essential hypertension Status: Chronic (9) Vitreous hemorrhage of right eye Status: Acute (10) Acquired hypothyroidism Status: Chronic (11) Diabetes mellitus, type 2 Status: Chronic Comment: w neuropathy and retinopathy (12) CKD stage 3 due to type 2 diabetes mellitus Status: Chronic (13) Cerebrovascular disease Status: Chronic Comment: History of multiple acute ischemic strokes anterior circulation History of Present Illness Date of Admission: 01/11/20 Chief Complaint: Fever with hypotension in PCP office The patient is a 69 year old F with multiple comorbidities including ESRD on hemodialysis, stroke was sent from Dr. Wilson office to ER for fever and hypotension. Patient has been feeling chills for last 2 days with fever, temperature 101.2 ?F a.m. today and temperature 98.8 ?F blood pressure 88/42 in PCP office. Patient abdominal wall skin is red, painful and tender for few days. She is morbidly obese with BMI 64 kg/m? with large abdominal panniculus. Her blood sugar was also low 87 at home and was 250 mg/dL at PCP office. A1c today 9.5 g%. In ED, her blood pressure was 95/47, heart rate 91/min pulse ox 88% on room air. Temperature 99.2 ?F. Lactic acid elevated 2.3. Patient started on IV vancomycin and Zosyn and 1 L of normal saline bolus. Blood pressure improved 151/46. CT abdomen shows large abdominal wall cellulitis but no fluid collection or abscess. Chest x-ray reported as normal. Patient is further admitted in ICU. [] Past Medical History Past Medical History (Chronic Problems): Chronic Problems (Last Reviewed 01/03/20 @ 08:32 by Danette Marques) Pedal edema (Chronic) Continue Lasix. Will monitor. Shortness of breath (Chronic) This is chronic and stable. We are checking an echo in 6 months to evaluate for progression of her mitral stenosis. At this time it appears to be related to her significant obesity. Discussed weight loss with the patient. 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) Cerebrovascular disease (Chronic) History of multiple acute ischemic strokes anterior circulation Medical History: Medical History (Last Reviewed 01/03/20 @ 08:32 by Danette Marques) Hyperlipidemia (Chronic) E78.5 Essential hypertension (Chronic) I10 Vitreous hemorrhage of right eye (Acute) H43.11 Acquired hypothyroidism (Chronic) E03.9 CKD stage 3 due to type 2 diabetes mellitus (Chronic) E11.22, N18.3 Cerebrovascular disease (Chronic) I67.9 History of multiple acute ischemic strokes anterior circulation Arthritis of spine M47.819 Cervical radiculopathy M54.12 left sided Chronic back pain M54.9, G89.29 Degenerative disc disease, cervical M50.30 Dialysis patient Z99.2 Insomnia G47.00 Major depression F32.9 Memory loss R41.3 Morbid obesity with BMI of 60.0-69.9, adult E66.01, Z68.44 Narrowing of intervertebral disc space M99.79 Problem with dialysis access T82.898A Segmental and somatic dysfunction of cervical region M99.01 Segmental and somatic dysfunction of thoracic region M99.02 Abscess of labia majora N76.4 History of fistula Z87.59 History of stroke Z86.73 Allergies No Known Allergies Allergy (Verified 01/11/20 14:25) Home Medications: Ambulatory Orders Medication Instructions Recorded Vilazodone Hydrochloride [Viibryd] 40 mg PO QHS 05/29/14 Aspirin E.C. [Ecotrin] 81 mg PO DAILY@0800 #30 tab 06/01/14 dulaglutide 1.5 mg/0.5 mL 1.5 mg SC TH 04/11/19 subcutaneous pen injector levothyroxine 200 mcg tablet 200 mcg PO DAILY 04/11/19 B complex-vitamin C-folic acid 0.8 1 tab PO DAILY 12/13/19 mg tablet calcium acetate 667 mg tablet 2,001 mg PO TID 12/13/19 cholecalciferol (vitamin D3) 25 25 mcg PO DAILY 12/13/19 mcg (1,000 unit) tablet doxepin 25 mg capsule 25 mg PO QHS PRN 12/13/19 insulin regular hum U-500 conc 500 170 unit SC BID ml 12/13/19 unit/mL subcutaneous soln metoprolol tartrate 50 mg tablet 25 mg PO BID tab 12/13/19 clotrimazole-betamethasone 1 1 applic TOPICAL BID 14 Days #45 g 01/03/20 %-0.05 % topical cream diphenoxylate-atropine 2.5 1 tab PO QHS PRN 01/03/20 mg-0.025 mg tablet Furosemide [Lasix] 20 mg PO DAILY 01/11/20 Surgical History: Surgical History (Last Reviewed 01/03/20 @ 08:32 by Danette Marques) AV fistula I77.0 left History of cholecystectomy Z90.49 History of hernia repair Z98.890, Z87.19 Surgical History: cataract, cholecystectomy, herniorrhaphy, - - wrist fx, AV fistula Psychiatric History: No pertinent psych hx ADMINISTRATIVE OFFICE SPECIALIST History: No pertinent ADMINISTRATIVE OFFICE SPECIALIST history Smoking Status: Former smoker Tobacco Use: Cigarettes - *Family History Paternal Family History: Family History (Last Reviewed 01/03/20 @ 08:32 by Danette Marques) Sister Breast cancer Mother Breast cancer Grandmother Cancer History Items: Unknown Maternal Family History: Family History (Last Reviewed 01/03/20 @ 08:32 by Danette Marques) Sister Breast cancer Mother Breast cancer Grandmother Cancer History Items: Diabetes, Heart Disease, Hypertension Review of Systems Constitutional: Reports: Anorexia, Chills, Fever, Malaise, Weakness, Weight Change - Morbid obese HEENT: Denies: Head Aches, Sinus Congestion, Sinus Drainage Cardiovascular: Denies: Chest Pain, Palpitations Respiratory: Denies: Cough, Shortness of breath at rest, Sputum production Gastrointestinal: Reports: Abdominal Pain, Diarrhea - Diarrhea during hemodialysis. Denies: Hematemesis, Hematochezia, Nausea, Melena, Vomiting Genitourinary: Denies: Dysuria, Frequency, Hesitancy, Urgency Musculoskeletal: Reports: Joint Pain. Denies: Joint Tenderness Skin: Reports: Rash - Redness over her whole abdominal wall skin and soft tissue. Denies: Wounds Neurological: Denies: Numbness, Tingling, Focal weakness Psychiatric: Reports: Anxiety. Denies: Depression, Homicidal Ideations, Suicidal Ideations Hematologic/ Lymphatic: Denies: Easy Bruising, Easy Bleeding VTE Information - Inpt Only VTE Present on Admission: No VTE Mechan Device Prophylaxis: SCD's VTE Pharm Prophylaxis ordered?: Yes Patient Problems: Active and Suspected Problems (Last Reviewed 01/03/20 @ 08:32 by Danette Marques) Cellulitis (Acute) Severe sepsis (Acute) - Physical Exam Vitals/I&O's: Vital Signs Temp Pulse Resp BP Pulse Ox 98.6 F 86 25 H 135/85 H 97 01/11/20 17:21 01/11/20 17:21 01/11/20 17:21 01/11/20 17:21 01/11/20 17:21 Oxygen Flow Rate (L/min) 3 Oxygen Delivery Method Nasal Cannula Weight: 350 lb Body Mass Index (BMI) 64.0 Finger Stick Blood Glucose 140 Intake and Output for Last 24 Hours 01/09/20 01/10/20 01/11/20 23:59 23:59 23:59 Intake Total 79.17 / 79.17 Balance 79.17 / 79.17 General: Alert, Oriented x3, Cooperative HEENT: Atraumatic, PERRLA, EOMI, Normocephalic Oral: No Gingival or Mucosal Lesions/ Ulcerations, Dry Mucosa Neck: Supple, No JVD, Negative Carotid Bruits Lungs: Clear to auscultation, Normal air movement Cardiovascular: Regular rate, Regular Rhythm, Normal S1, Normal S2, Murmur - Systolic murmur present over left lower sternal border and soft, rambling mid diastolic murmur over cardiac apex. Abdomen: Bowel Sounds Present, Soft, Hypoactive Bowel Sounds, Tender - Tenderness present over whole abdominal wall up to pelvis. Erythematous rash. Extremities: No edema, Capillary Refill Less than 3 Seconds Skin: No breakdown, Rash Present Musculoskeletal: No Tenderness to Palpation of Joints or Extremities, Arthritic Changes Neurological: Cranial nerves II-XII grossly intact Psych/Mental Status: Normal Affect, Appropriate Laboratory Results 01/11/20 15:02: WBC 11.3 H, RBC 4.00 L, Hgb 12.6, Hct 40.0, MCV 100.0 H, MCH 31.5, MCHC 31.5 L, RDW Std Deviation 57.6 H, RDW Coeff of Ben 15.6 H, Plt Count 226, MPV 10.3, Immature Gran % (Auto) 0.400, Neut % (Auto) 89.1 H, Lymph % (Auto) 6.1 L, [place] % (Auto) 4.0, Eos % (Auto) 0.2, Baso % (Auto) 0.2, Absolute Neuts (auto) 10.1 H, Absolute Lymphs (auto) 0.69 L, Nucleated RBC % 0 01/11/20 15:02: Sodium 135 L, Potassium 4.7, Chloride 97 L, Carbon Dioxide 28.0, Anion Gap 10, BUN 56 H, Creatinine 7.03 H, Estim Creat Clear Calc 6.14, Est GFR (MDRD) Af Amer 8 L, Est GFR (MDRD) Non-Af 6 L, BUN/Creatinine Ratio 8.0 L, Glucose 259 H, Calcium 8.6, Total Bilirubin 0.80, AST 14 L, ALT 17, Alkaline Phosphatase 71, Troponin I < 0.015, Total Protein 7.4, Albumin 2.8 L, Globulin 4.6 H, Albumin/Globulin Ratio 0.6 L 01/11/20 15:02: Lactic Acid 2.3 H* 01/11/20 15:35: Urine Color Yellow, Urine Clarity Cloudy, Urine pH 8.0, Ur Specific [place] 1.010, Urine Protein 100 H, Urine Glucose (UA) 100 H, Urine Ketones 5 H, Urine Occult Blood 50 H, Urine Nitrite Negative, Urine Bilirubin Negative, Urine Urobilinogen Normal, Ur Leukocyte Esterase 500 H, Urine RBC 0 SEEN, Urine WBC >100 SEEN, Ur Squamous Epith Cells 0 SEEN, Urine Bacteria 0 SEEN, Urine Mucus 0 SEEN Assessment/Plan All Active Problems (Last Reviewed 01/03/20 @ 08:32 by Danette Marques) Cellulitis (Acute) Severe sepsis (Acute) Preoperative cardiovascular examination (Acute) Vitreous hemorrhage of right eye (Acute) Hypoxia (Resolved) Shortness of breath (Resolved) The patient is a 69 year old F with multiple comorbidities including ESRD on hemodialysis, stroke was sent from Dr. Kramer office to ER for fever and hypotension. In ED, her blood pressure was 95/47, heart rate 91/min pulse ox 88% on room air. Temperature 99.2 ?F. Lactic acid elevated 2.3. Patient started on IV vancomycin and Zosyn and 1 L of normal saline bolus. Blood pressure improved 151/46. Patient is further admitted in ICU. 1. SIRS (fever, tachycardia, hypoxia, leukocytosis, hypotension with lactic acidosis) history of severe sepsis secondary to abdominal wall cellulitis: Patient is being admitted in ICU as per sepsis protocol. Patient blood pressure has improved we will put on 100 mL/h as she is a hemodialysis patient and risk for pulmonary edema and fluid overload. IV vancomycin and Zosyn ER started and will continue it. MRSA nasal screen. CT abdomen shows large abdominal wall cellulitis but no fluid collection or abscess. Chest x-ray reported as normal. Women'S Soccer Coach consult requested. Troponin normal. 2. ESRD on hemodialysis T/T/S: Dr. Lambert has seen the patient in ER. Hemodialysis as per acid splicer recommendation. She had CT abdomen and pelvis without contrast. UA shows WBC more than 100 cells, LE 500. Patient denies dysuria or new lower related symptoms. 3. Morbid obesity with suspicion of obesity hypoventilation syndrome/obstructive sleep apnea: Patient states he has history of previous sleep apnea but does not use his CPAP or oxygen at night. She believes he uses oxygen during hemodialysis. Never been evaluated by fixture repairer fabricator. Advised outpatient sleep study and PFT. 4. 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 Accu-Chek before meals and at bedtime. A1c 9.5 on 01/11/2020. Patient on insulin regular Humulin?500, Trulicity which is non-formulary. Started on Lantus 10 units subcutaneous twice daily and Humalog sliding scale insulin and titrate up as per Accu-Cheks. 5. Mitral stenosis, hypertension and dyslipidemia: Patient had last echo in September 2019. Interpretation Summary The estimated ejection fraction is 75 %. Unable to assess diastolic dysfunction. Moderate mitral valve stenosis. There is moderate mitral annular calcification. The study was technically difficult. Contrast injection was performed. Other comorbidities include history of CVA, bilateral pedal edema with chronic venous insufficiency and other morbid obesity related complications. Multiple comorbidities complicates the present care and expect difficult and delay recovery VTE prophylaxis: High risk, Heparin 5000 subcutaneous 3 times daily and bilateral SCDs. Living will/advanced directive/end of life care: Patient does not have living will or advanced directive. Her is power of vp public relations for health. After discussion of procedures involved with full code, DNR CC arrest and DNR CC, the patient opted for full code Patient does want artificial life support including intubation, tube feed, ventilator and/chest compression, central venous catheter, vasopressor and DC shock if needed Total time spent in [id number] encounter in discussion of advanced directive 16 minutes Laboratory Results 01/11/20 15:02: WBC 11.3 H, RBC 4.00 L, Hgb 12.6, Hct 40.0, MCV 100.0 H, MCH 31.5, MCHC 31.5 L, RDW Std Deviation 57.6 H, RDW Coeff of Ben 15.6 H, Plt Count 226, MPV 10.3, Immature Gran % (Auto) 0.400, Neut % (Auto) 89.1 H, Lymph % (Auto) 6.1 L, [place] % (Auto) 4.0, Eos % (Auto) 0.2, Baso % (Auto) 0.2, Absolute Neuts (auto) 10.1 H, Absolute Lymphs (auto) 0.69 L, Nucleated RBC % 0 01/11/20 15:02: Sodium 135 L, Potassium 4.7, Chloride 97 L, Carbon Dioxide 28.0, Anion Gap 10, BUN 56 H, Creatinine 7.03 H, Estim Creat Clear Calc 6.14, Est GFR (MDRD) Af Amer 8 L, Est GFR (MDRD) Non-Af 6 L, BUN/Creatinine Ratio 8.0 L, Glucose 259 H, Calcium 8.6, Total Bilirubin 0.80, AST 14 L, ALT 17, Alkaline Phosphatase 71, Troponin I < 0.015, Total Protein 7.4, Albumin 2.8 L, Globulin 4.6 H, Albumin/Globulin Ratio 0.6 L 01/11/20 15:02: Lactic Acid 2.3 H* 01/11/20 15:35: Urine Color Yellow, Urine Clarity Cloudy, Urine pH 8.0, Ur Specific [place] 1.010, Urine Protein 100 H, Urine Glucose (UA) 100 H, Urine Ketones 5 H, Urine Occult Blood 50 H, Urine Nitrite Negative, Urine Bilirubin Negative, Urine Urobilinogen Normal, Ur Leukocyte Esterase 500 H, Urine RBC 0 SEEN, Urine WBC >100 SEEN, Ur Squamous Epith Cells 0 SEEN, Urine Bacteria 0 SEEN, Urine Mucus 0 SEEN Clinical Impression(s) from Imaging Studies Abdomen/Pelvis CT 01/11/20 14:44 IMPRESSION: 1. Status post cholecystectomy. 2. The left kidney is absent. 3. Colonic diverticulosis most severely affecting the sigmoid. There is no evidence of associated diverticulitis. 4. KAT catheter present within a decompressed urinary bladder. 5. Mild skin thickening and subcutaneous fatty stranding of the patient''s lower right pelvic pannus. There is no evidence of soft tissue gas or abnormal soft tissue fluid collection. Findings are compatible with cellulitis. 6. There is no evidence of free intra-abdominal or intrapelvic air or fluid. 7. The entire girth of the patient''s abdomen is not included in the [id number] of this study. Chest X-Ray 01/11/20 16:00 IMPRESSION: Normal x-ray examination of the chest. Electronically Signed: Carroll Pandey MD at 16:20 EDT , Service support , Inpatient E&M: 18370 Init Hosp Procedures: [id number] Advncd Care Plan 30 Min
--- NOTE | 2020-01-11 18:53 | CON.PCM_ITS ---
Consultation - Renal 01/11/20 PCP/ Referring MD: Requesting physician: [] Primary care physician: Dr. Emeka Kramer MD Reason for Consultation:: ESRD HD TTS - History of Present Illness History of Present Illness: The patient is a 69 year old morbidly obese F with ESRD due to diabetes, renal atrophy admitted for cellulitis with abscess of abdominal wall x1 week. She complained of tremors starting this morning with weakness, anorexia. She was sent to ER from PCP office today for low BP with fever. She was seen by [employer] last Wednesday and given an oral medication with topical. Abdominal redness and tenderness increased today. She is on HD every Wednesday, , Wednesday and missed her treatment today. She will need dialysis on admission. WBC elevated at 11K with lactic acid level of 2.3. - Allergies Allergies: Allergies No Known Allergies Allergy (Verified 01/11/20 14:25) - Past Medical History Past Medical History (Chronic Problems): Chronic Problems (Last Reviewed 01/03/20 @ 08:32 by Danette Marques) Pedal edema (Chronic) Continue Lasix. Will monitor. Shortness of breath (Chronic) This is chronic and stable. We are checking an echo in 6 months to evaluate for progression of her mitral stenosis. At this time it appears to be related to her significant obesity. Discussed weight loss with the patient. 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) Cerebrovascular disease (Chronic) History of multiple acute ischemic strokes anterior circulation - Past Surgical History Surgical History: cataract, cholecystectomy, herniorrhaphy, - - wrist fx, AV fistula - Social History Smoking Status: Former smoker - Family History Paternal Family History: Family History (Last Reviewed 01/03/20 @ 08:32 by Danette Marques) Sister Breast cancer Mother Breast cancer Grandmother Cancer History Items: Unknown Maternal Family History: Family History (Last Reviewed 01/03/20 @ 08:32 by Danette Marques) Sister Breast cancer Mother Breast cancer Grandmother Cancer History Items: Diabetes, Heart Disease, Hypertension Review of Systems Constitutional: Reports: Anorexia, Chills, Fever, Weakness, Fatigue HEENT: Denies: Head Aches Cardiovascular: Reports: Chest Tightness - chronic. Denies: Chest Pain, Syncope Respiratory: Reports: Shortness of Breath. Denies: Cough Gastrointestinal: Denies: Nausea, Vomiting Skin: Reports: Rash - abdomen x1 week, tenderness Neurological: Reports: Tremor. Denies: Seizures Psychiatric: Reports: Anxiety, Depression Hematologic/ Lymphatic: Reports: Anemia Patient Problems: Active and Suspected Problems (Last Reviewed 01/03/20 @ 08:32 by Danette Marques) Cellulitis (Acute) Severe sepsis (Acute) - Physical Exam Vitals/I&O's: Vital Signs Temp Pulse Resp BP Pulse Ox 98.4 F 91 26 H 181/65 H 97 01/11/20 18:25 01/11/20 18:25 01/11/20 18:25 01/11/20 18:25 01/11/20 18:25 Oxygen Flow Rate (L/min) 3 Oxygen Delivery Method Nasal Cannula Weight: 158.757 kg Body Mass Index (BMI) 64.0 Finger Stick Blood Glucose 140 Intake and Output for Last 24 Hours 01/09/20 01/10/20 01/11/20 23:59 23:59 23:59 Intake Total 1079.17 / 1079.17 Balance 1079.17 / 1079.17 General: Alert, Oriented x3, Cooperative, - - anxious Oral: Moist Mucosa Lungs: Clear to auscultation Cardiovascular: Regular rate Extremities: Edema Skin: - - erythema abdomen/pannus with tenderness. induration lower abdomen, discoloration Musculoskeletal: No Muscle Wasting Psych/Mental Status: Normal Affect, Appropriate, Alert and oriented to time, place, person, mood and affect Laboratory Results 01/11/20 15:02: WBC 11.3 H, RBC 4.00 L, Hgb 12.6, Hct 40.0, MCV 100.0 H, MCH 31.5, MCHC 31.5 L, RDW Std Deviation 57.6 H, RDW Coeff of Ben 15.6 H, Plt Count 226, MPV 10.3, Immature Gran % (Auto) 0.400, Neut % (Auto) 89.1 H, Lymph % (Auto) 6.1 L, [place] % (Auto) 4.0, Eos % (Auto) 0.2, Baso % (Auto) 0.2, Absolute Neuts (auto) 10.1 H, Absolute Lymphs (auto) 0.69 L, Nucleated RBC % 0 01/11/20 15:02: Sodium 135 L, Potassium 4.7, Chloride 97 L, Carbon Dioxide 28.0, Anion Gap 10, BUN 56 H, Creatinine 7.03 H, Estim Creat Clear Calc 6.14, Est GFR (MDRD) Af Amer 8 L, Est GFR (MDRD) Non-Af 6 L, BUN/Creatinine Ratio 8.0 L, Glucose 259 H, Calcium 8.6, Total Bilirubin 0.80, AST 14 L, ALT 17, Alkaline Phosphatase 71, Troponin I < 0.015, Total Protein 7.4, Albumin 2.8 L, Globulin 4.6 H, Albumin/Globulin Ratio 0.6 L 01/11/20 15:02: Lactic Acid 2.3 H* 01/11/20 15:35: Urine Color Yellow, Urine Clarity Cloudy, Urine pH 8.0, Ur Specific [place] 1.010, Urine Protein 100 H, Urine Glucose (UA) 100 H, Urine Ketones 5 H, Urine Occult Blood 50 H, Urine Nitrite Negative, Urine Bilirubin Negative, Urine Urobilinogen Normal, Ur Leukocyte Esterase 500 H, Urine RBC 0 SEEN, Urine WBC >100 SEEN, Ur Squamous Epith Cells 0 SEEN, Urine Bacteria 0 SEEN, Urine Mucus 0 SEEN Clinical Impression(s) from Imaging Studies Abdomen/Pelvis CT 01/11/20 14:44 IMPRESSION: 1. Status post cholecystectomy. 2. The left kidney is absent. 3. Colonic diverticulosis most severely affecting the sigmoid. There is no evidence of associated diverticulitis. 4. KAT catheter present within a decompressed urinary bladder. 5. Mild skin thickening and subcutaneous fatty stranding of the patient''s lower right pelvic pannus. There is no evidence of soft tissue gas or abnormal soft tissue fluid collection. Findings are compatible with cellulitis. 6. There is no evidence of free intra-abdominal or intrapelvic air or fluid. 7. The entire girth of the patient''s abdomen is not included in the [id number] of this study. Electronically Signed: Carroll Pandey MD at 16:41 EDT , Service support , Chest X-Ray 01/11/20 16:00 IMPRESSION: Normal x-ray examination of the chest. Electronically Signed: Carroll Pandey MD at 16:20 EDT , Service support , Assessment/Plan All Active Problems (Last Reviewed 01/03/20 @ 08:32 by Danette Marques) Cellulitis (Acute) Severe sepsis (Acute) Preoperative cardiovascular examination (Acute) Vitreous hemorrhage of right eye (Acute) Hypoxia (Resolved) Shortness of breath (Resolved) 1. ESRD HD TTS. Dialysis today, follow chronic orders 2. Abdominal wall abscess, cellulitis, panniculitis. Bld cx, iv antibx 3. Sepsis syndrome with leukocytosis 4. DM2 5. HTN 6. Severe morbid obesity 7. renal agenesis.
[2020-01-11 19:08] LABS: Reflex Lactate? Y
[2020-01-11 19:11] LABS: Bedside Glucose 224 mg/dL (70-110)
[2020-01-11 19:55] LABS: International Normalized Ratio 1.1; Prothrombin Time (Protime)PT. 13.7 SECONDS (11.7-14.9)
[2020-01-11 19:56] LABS: Partial Thromboplast Time 23.2 Seconds (24.1-36.2)
[2020-01-11 20:07] LABS: CPK Total, Creatine Kinase 242 U/L (26-192); Magnesium 2.4 mg/dL (1.6-2.6)
[2020-01-11] MEDS: Acetaminophen 325 MG Tablet 650 MG PO (20:09)
[2020-01-11] MEDS: 0.9% Normal Saline 1,000 ML 75 ML IV (20:20)
[2020-01-11] MEDS: oxyCODONE 5 MG Tablet PO (20:24)
[2020-01-11] MEDS: Heparin Injection (Vial) 5,000 UNIT/ML VIAL 5000 UNIT SC (21:15)
[2020-01-11] MEDS: Insulin Lispro 100 UNIT/ML INSULN.PEN SC (21:16)
[2020-01-11] MEDS: VILAZODONE HYDROCHLORIDE 10 MG TABLET 40 MG PO (21:20)
[2020-01-11] MEDS: Clotrimazole/Betamethasone 1 Tube 1 APPLIC TOPICAL (21:20)
[2020-01-11 21:51] LABS: Bedside Glucose 199 mg/dL (70-110)
[2020-01-11 22:03] LABS: Lactic Acid 1.6 mmol/L (0.4-1.9)
[2020-01-11 22:18] LABS: M R Staph aureus DNA By PCR Negative (Negative); Probe Check PASS; Specimen Processing Control PASS
[2020-01-11] MEDS: Doxepin Hcl 25 MG Capsule PO (22:40)
[2020-01-12] VITALS (18 sets, daily range): BP systolic 93–149; BP diastolic 51–74; PULSE 81–97; RESP 19–27; TEMP 36.7–38.3; O2SAT 92–99
--- NOTE | 2020-01-12 00:11 | DIALYSIS ---
HD TODAY. UF -2500ML PT C/O PAIN IN BACK AND RIGHT LEG ENTIRE DIALYSIS TREATMENT WHICH SHE STATES IS CHRONIC IN [place]. I REPOSITIONED AND USED PILLOWS TO TRY TO HELP ELEVIATE SOME OF HER DISCOMFORT. ALSO LISA MOSHER RN MEDICATED WELL. PT'S REGULAR DIALYSIS DAYS TTS. NEXT TX PER SYSTEMS INTEGRATION ADVISOR DR. INTERIANO.
[2020-01-12] MEDS: Acetaminophen 325 MG Tablet 650 MG PO ×2 (02:58→11:22)
[2020-01-12] MEDS: 0.9% Saline Lock 10 ML Syringe IV ×5 (03:10→23:17)
[2020-01-12] MEDS: oxyCODONE 5 MG Tablet PO (03:10)
[2020-01-12 05:11] LABS: Absolute Lymphocyte Count 0.68 X10^3/uL (0.83-4.51); Absolute Neutrophil Count 7.1 X10^3/uL (2.0-7.7); Basophil# 0.02 X10^3/uL; Basophil% 0.2 % (0-1); Eosinophil# 0.05 X10^3/uL; Eosinophils% 0.6 % (0-5); Hematocrit 37.6 % (37-47); Hemoglobin 11.6 g/dL (12.0-15.0); Lymphocyte # 0.68 X10^3/ul (4.0); Lymphocyte % 8.2 % (19-41); Mean Corp Hgb Conc 30.9 g/dL (32-36); Mean Corpuscular Hgb 31.4 pg (27.0-32.0); Mean Corpuscular Volume 101.6 fL (81-99); Mean Platelet Vol. 10.3 fl (6.2-12.0); Monocyte# 0.35 X10^3/uL; Monocyte% 4.2 % (0-10); NRBC Flagged by Analyzer 0 % (0-5); Neutrophil # 7.11 X10^3/uL (2.7-7.7); Neutrophil % 86.3 % (47-70); POSITIVE COUNT YES; Platelet Count 183 K/mm3 (150-450); RBC Distribution Width CV 15.6 % (11.6-14.6); RBC Distribution Width SD 58.7 fl (35.1-43.9); White Blood Count 8.3 K/mm3 (4.4-11.0)
[2020-01-12 05:32] LABS: Albumin, Serum 2.4 g/dL (3.2-5.0); BUN 29 mg/dL (7-18); BUN/Creat Ratio 6.5 RATIO (10-20); Calcium,Total 7.6 mg/dL (8.5-10.1); Chloride 98 mmol/L (98-107); Creatinine, Serum 4.49 mg/dL (0.55-1.02); EST Glomerular Filtration Rate 10 mL/min (>60); Est Glom Filt Rate - Afr Amer 13 mL/min (>60); Estimated Creatinine Clearance 9.62 ml/min; Glucose 202 mg/dL (74-106); Phosphorus 5.1 mg/dL (2.5-4.9); Sodium Level 134 mmol/L (136-145); Thyroid Stim Hormone (TSH) 3.65 uIU/mL (0.358-3.74)
[2020-01-12] MEDS: Levothyroxine 100 MCG Tablet 200 MCG PO (06:01)
[2020-01-12] MEDS: Heparin Injection (Vial) 5,000 UNIT/ML VIAL 5000 UNIT SC ×3 (06:01→23:07)
[2020-01-12] MEDS: Insulin Lispro 100 UNIT/ML INSULN.PEN SC ×4 (06:47→23:20)
[2020-01-12 06:55] LABS: Bedside Glucose 192 mg/dL (70-110)
--- NOTE | 2020-01-12 07:19 | CON.PCM_ITS ---
Reason for Consult Date of Consultation: 01/12/20 Reason for Consultation: Severe sepsis History of Present Illness: The patient is a 69-year-old female, with a history as outlined below, who presented to the emergency department on January 10 with fevers, hypotension and concern for panniculitis. The patient has a history of super morbid obesity along with end-stage renal disease on hemodialysis. On presentation to the emergency department, the patient was noted to be afebrile and hemodynamically stable. Laboratory evaluation revealed a mildly elevated white blood cell count of 11,000. Chemistry profile was notable for a creatinine of 7.03 and lactate of 2.3. Troponin was negative. MRSA screen was negative. CT abdomen/pelvis revealed mild skin thickening and subcutaneous fatty stranding of the patient's lower right pelvic pannus concerning for cellulitis. Plain film chest x-ray revealed no acute cardiopulmonary process. The patient was subsequently placed on antimicrobials and received supplemental IV fluid hydration. She was then admitted to the medical intensive care unit with an admitting diagnosis of severe sepsis. Overnight, the patient did spike a fever to 101 ?F. However, she has remained hemodynamically stable on 2 L/min via nasal cannula. The patient did tolerate hemodialysis yesterday with 2.5 L of fluid removed. Past Medical History Past Medical History (Chronic Problems): Chronic Problems (Last Reviewed 01/03/20 @ 08:32 by Danette Marques) Pedal edema (Chronic) Continue Lasix. Will monitor. Shortness of breath (Chronic) This is chronic and stable. We are checking an echo in 6 months to evaluate for progression of her mitral stenosis. At this time it appears to be related to her significant obesity. Discussed weight loss with the patient. 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) Cerebrovascular disease (Chronic) History of multiple acute ischemic strokes anterior circulation Medical History: Medical History (Last Reviewed 01/03/20 @ 08:32 by Danette Marques) Hyperlipidemia (Chronic) E78.5 Essential hypertension (Chronic) I10 Vitreous hemorrhage of right eye (Acute) H43.11 Acquired hypothyroidism (Chronic) E03.9 CKD stage 3 due to type 2 diabetes mellitus (Chronic) E11.22, N18.3 Cerebrovascular disease (Chronic) I67.9 History of multiple acute ischemic strokes anterior circulation Arthritis of spine M47.819 Cervical radiculopathy M54.12 left sided Chronic back pain M54.9, G89.29 Degenerative disc disease, cervical M50.30 Dialysis patient Z99.2 Insomnia G47.00 Major depression F32.9 Memory loss R41.3 Morbid obesity with BMI of 60.0-69.9, adult E66.01, Z68.44 Narrowing of intervertebral disc space M99.79 Problem with dialysis access T82.898A Segmental and somatic dysfunction of cervical region M99.01 Segmental and somatic dysfunction of thoracic region M99.02 Abscess of labia majora N76.4 History of fistula Z87.59 History of stroke Z86.73 Allergies No Known Allergies Allergy (Verified 01/11/20 14:25) Home Medications: Ambulatory Orders Medication Instructions Recorded Vilazodone Hydrochloride [Viibryd] 40 mg PO QHS 05/29/14 Aspirin E.C. [Ecotrin] 81 mg PO DAILY@0800 #30 tab 06/01/14 dulaglutide 1.5 mg/0.5 mL 1.5 mg SC TH 04/11/19 subcutaneous pen injector levothyroxine 200 mcg tablet 200 mcg PO DAILY 04/11/19 B complex-vitamin C-folic acid 0.8 1 tab PO DAILY 12/13/19 mg tablet calcium acetate 667 mg tablet 2,001 mg PO TID 12/13/19 cholecalciferol (vitamin D3) 25 25 mcg PO DAILY 12/13/19 mcg (1,000 unit) tablet doxepin 25 mg capsule 25 mg PO QHS PRN 12/13/19 insulin regular hum U-500 conc 500 170 unit SC BID ml 12/13/19 unit/mL subcutaneous soln metoprolol tartrate 50 mg tablet 25 mg PO BID tab 12/13/19 clotrimazole-betamethasone 1 1 applic TOPICAL BID 14 Days #45 g 01/03/20 %-0.05 % topical cream diphenoxylate-atropine 2.5 1 tab PO QHS PRN 01/03/20 mg-0.025 mg tablet Furosemide [Lasix] 20 mg PO DAILY 01/11/20 Surgical History: Surgical History (Last Reviewed 01/03/20 @ 08:32 by Danette Marques) AV fistula I77.0 left History of cholecystectomy Z90.49 History of hernia repair Z98.890, Z87.19 Surgical History: cataract, cholecystectomy, herniorrhaphy, - - wrist fx, AV fistula Psychiatric History: No pertinent psych hx 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: No pertinent ASSISTANT 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 LOCOMOTIVE ENGINEER history Smoking Status: Former smoker Tobacco Use: Cigarettes - *Family History Paternal Family History: Family History (Last Reviewed 01/03/20 @ 08:32 by Danette Marques) Sister Breast cancer Mother Breast cancer Grandmother Cancer History Items: Unknown Maternal Family History: Family History (Last Reviewed 01/03/20 @ 08:32 by Danette Marques) Sister Breast cancer Mother Breast cancer Grandmother Cancer History Items: Diabetes, Heart Disease, Hypertension Review of Systems Constitutional: Reports: Fever Eyes: Denies: Blurred vision, Double vision HEENT: Denies: Head Aches, Sinus Congestion, Sinus Drainage Cardiovascular: Denies: Chest Pain, Palpitations Respiratory: Denies: Cough, Shortness of breath at rest, Sputum production Gastrointestinal: Reports: Abdominal Pain. Denies: Nausea, Vomiting Genitourinary: Denies: Dysuria Musculoskeletal: Denies: Joint Pain, Joint Tenderness Skin: Reports: Rash, Skin Changes Neurological: Denies: Numbness, Tingling, Focal weakness Psychiatric: Denies: Anxiety, Depression, Homicidal Ideations, Suicidal Ideations Hematologic/ Lymphatic: Reports: Anemia Patient Problems: Active and Suspected Problems (Last Reviewed 01/03/20 @ 08:32 by Danette Marques) Cellulitis (Acute) Severe sepsis (Acute) Objective: The patient's most recent lab work, culture data and imaging studies have all been personally reviewed. Blood and urine cultures are pending. - Physical Exam Vitals/I&O's: Vital Signs Temp Pulse Resp BP Pulse Ox 99.9 F H 84 19 H 115/54 L 97 01/12/20 06:00 01/12/20 06:00 01/12/20 06:00 01/12/20 06:00 01/12/20 06:00 Oxygen Flow Rate (L/min) 2 Oxygen Delivery Method Nasal Cannula Weight: 357 lb 5.909 oz Body Mass Index (BMI) 64.7 Finger Stick Blood Glucose 140 Intake and Output for Last 24 Hours 01/10/20 01/11/20 01/12/20 23:59 23:59 23:59 Intake Total 1910. / 1909. 50 / 50 Output Total 450 / 460 53 / 53 Balance 1460.00 / 1450.00 -3 / -3 General: Alert, Oriented x3, Cooperative, No apparent distress, - - Morbidly obese HEENT: Atraumatic, Normocephalic Oral: No Gingival or Mucosal Lesions/ Ulcerations Neck: Supple, No Nodes, Trachea Midline Lungs: Diminished Cardiovascular: Regular rate, Regular Rhythm, Murmur Abdomen: Bowel Sounds Present, Soft, Non Tender, Obese Extremities: No clubbing, No cyanosis Skin: - - Panniculitis and lower extremity cellulitis present Musculoskeletal: No Muscle Wasting Lymphatic: No Cervical, Supraclavicular, or Inguinal Adenopathy Neurological: Cranial nerves II-XII grossly intact, Neuro grossly intact Psych/Mental Status: Normal Affect, Appropriate Labs (Last 48 Hours) 01/11/20 01/11/20 01/11/20 15:02 15:02 15:02 WBC 11.3 H RBC 4.00 L Hgb 12.6 Hct 40.0 MCV 100.0 H MCH 31.5 MCHC 31.5 L RDW Std Deviation 57.6 H RDW Coeff of Ben 15.6 H Plt Count 226 MPV 10.3 Immature Gran % (Auto) 0.400 Neut % (Auto) 89.1 H Lymph % (Auto) 6.1 L Sawyer % (Auto) 4.0 Eos % (Auto) 0.2 Baso % (Auto) 0.2 Absolute Neuts (auto) 10.1 H Absolute Lymphs (auto) 0.69 L Nucleated RBC % 0 PT INR APTT Sodium 135 L Potassium 4.7 Chloride 97 L Carbon Dioxide 28.0 Anion Gap 10 BUN 56 H Creatinine 7.03 H Estim Creat Clear Calc 6.14 Est GFR (MDRD) Af Amer 8 L Est GFR (MDRD) Non-Af 6 L BUN/Creatinine Ratio 8.0 L Glucose 259 H Lactic Acid 2.3 H* Calcium 8.6 Phosphorus Magnesium Total Bilirubin 0.80 AST 14 L ALT 17 Alkaline Phosphatase 71 Total Creatine Kinase Troponin I < 0.015 Total Protein 7.4 Albumin 2.8 L Globulin 4.6 H Albumin/Globulin Ratio 0.6 L TSH Urine Color Urine Clarity Urine pH Ur Specific [place] Urine Protein Urine Glucose (UA) Urine Ketones Urine Occult Blood Urine Nitrite Urine Bilirubin Urine Urobilinogen Ur Leukocyte Esterase Urine RBC Urine WBC Ur Squamous Epith Cells Urine Bacteria Urine Mucus MRSA (PCR) POC Glucose 01/11/20 01/11/20 01/11/20 15:35 19:05 19:30 WBC RBC Hgb Hct MCV MCH MCHC RDW Std Deviation RDW Coeff of Ben Plt Count MPV Immature Gran % (Auto) Neut % (Auto) Lymph % (Auto) Sawyer % (Auto) Eos % (Auto) Baso % (Auto) Absolute Neuts (auto) Absolute Lymphs (auto) Nucleated RBC % PT 13.7 INR 1.1 APTT 23.2 L Sodium Potassium Chloride Carbon Dioxide Anion Gap BUN Creatinine Estim Creat Clear Calc Est GFR (MDRD) Af Amer Est GFR (MDRD) Non-Af BUN/Creatinine Ratio Glucose Lactic Acid Calcium Phosphorus Magnesium Total Bilirubin AST ALT Alkaline Phosphatase Total Creatine Kinase Troponin I Total Protein Albumin Globulin Albumin/Globulin Ratio TSH Urine Color Yellow Urine Clarity Cloudy Urine pH 8.0 Ur Specific [place] 1.010 Urine Protein 100 H Urine Glucose (UA) 100 H Urine Ketones 5 H Urine Occult Blood 50 H Urine Nitrite Negative Urine Bilirubin Negative Urine Urobilinogen Normal Ur Leukocyte Esterase 500 H Urine RBC 0 SEEN Urine WBC >100 SEEN Ur Squamous Epith Cells 0 SEEN Urine Bacteria 0 SEEN Urine Mucus 0 SEEN MRSA (PCR) POC Glucose 224 H 01/11/20 01/11/20 01/11/20 19:30 19:30 21:13 WBC RBC Hgb Hct MCV MCH MCHC RDW Std Deviation RDW Coeff of Ben Plt Count MPV Immature Gran % (Auto) Neut % (Auto) Lymph % (Auto) Sawyer % (Auto) Eos % (Auto) Baso % (Auto) Absolute Neuts (auto) Absolute Lymphs (auto) Nucleated RBC % PT INR APTT Sodium Potassium Chloride Carbon Dioxide Anion Gap BUN Creatinine Estim Creat Clear Calc Est GFR (MDRD) Af Amer Est GFR (MDRD) Non-Af BUN/Creatinine Ratio Glucose Lactic Acid 1.6 Calcium Phosphorus Magnesium 2.4 Total Bilirubin AST ALT Alkaline Phosphatase Total Creatine Kinase 242 H Troponin I Total Protein Albumin Globulin Albumin/Globulin Ratio TSH Urine Color Urine Clarity Urine pH Ur Specific [place] Urine Protein Urine Glucose (UA) Urine Ketones Urine Occult Blood Urine Nitrite Urine Bilirubin Urine Urobilinogen Ur Leukocyte Esterase Urine RBC Urine WBC Ur Squamous Epith Cells Urine Bacteria Urine Mucus MRSA (PCR) Negative POC Glucose 01/11/20 01/12/20 01/12/20 21:14 04:50 04:50 WBC 8.3 RBC 3.70 L Hgb 11.6 L Hct 37.6 MCV 101.6 H MCH 31.4 MCHC 30.9 L RDW Std Deviation 58.7 H RDW Coeff of Ben 15.6 H Plt Count 183 MPV 10.3 Immature Gran % (Auto) 0.500 Neut % (Auto) 86.3 H Lymph % (Auto) 8.2 L Sawyer % (Auto) 4.2 Eos % (Auto) 0.6 Baso % (Auto) 0.2 Absolute Neuts (auto) 7.1 Absolute Lymphs (auto) 0.68 L Nucleated RBC % 0 PT INR APTT Sodium 134 L Potassium 4.0 Chloride 98 Carbon Dioxide 26.0 Anion Gap BUN 29 H Creatinine 4.49 H Estim Creat Clear Calc 9.62 Est GFR (MDRD) Af Amer 13 L Est GFR (MDRD) Non-Af 10 L BUN/Creatinine Ratio 6.5 L Glucose 202 H Lactic Acid Calcium 7.6 L Phosphorus 5.1 H Magnesium Total Bilirubin AST ALT Alkaline Phosphatase Total Creatine Kinase Troponin I Total Protein Albumin 2.4 L Globulin Albumin/Globulin Ratio TSH 3.65 Urine Color Urine Clarity Urine pH Ur Specific [place] Urine Protein Urine Glucose (UA) Urine Ketones Urine Occult Blood Urine Nitrite Urine Bilirubin Urine Urobilinogen Ur Leukocyte Esterase Urine RBC Urine WBC Ur Squamous Epith Cells Urine Bacteria Urine Mucus MRSA (PCR) POC Glucose 199 H 01/12/20 06:46 WBC RBC Hgb Hct MCV MCH MCHC RDW Std Deviation RDW Coeff of Ben Plt Count MPV Immature Gran % (Auto) Neut % (Auto) Lymph % (Auto) Sawyer % (Auto) Eos % (Auto) Baso % (Auto) Absolute Neuts (auto) Absolute Lymphs (auto) Nucleated RBC % PT INR APTT Sodium Potassium Chloride Carbon Dioxide Anion Gap BUN Creatinine Estim Creat Clear Calc Est GFR (MDRD) Af Amer Est GFR (MDRD) Non-Af BUN/Creatinine Ratio Glucose Lactic Acid Calcium Phosphorus Magnesium Total Bilirubin AST ALT Alkaline Phosphatase Total Creatine Kinase Troponin I Total Protein Albumin Globulin Albumin/Globulin Ratio TSH Urine Color Urine Clarity Urine pH Ur Specific [place] Urine Protein Urine Glucose (UA) Urine Ketones Urine Occult Blood Urine Nitrite Urine Bilirubin Urine Urobilinogen Ur Leukocyte Esterase Urine RBC Urine WBC Ur Squamous Epith Cells Urine Bacteria Urine Mucus MRSA (PCR) POC Glucose 192 H Clinical Impression(s) from Imaging Studies Abdomen/Pelvis CT 01/11/20 14:44 IMPRESSION: 1. Status post cholecystectomy. 2. The left kidney is absent. 3. Colonic diverticulosis most severely affecting the sigmoid. There is no evidence of associated diverticulitis. 4. KAT catheter present within a decompressed urinary bladder. 5. Mild skin thickening and subcutaneous fatty stranding of the patient''s lower right pelvic pannus. There is no evidence of soft tissue gas or abnormal soft tissue fluid collection. Findings are compatible with cellulitis. 6. There is no evidence of free intra-abdominal or intrapelvic air or fluid. 7. The entire girth of the patient''s abdomen is not included in the [id number] of this study. Electronically Signed: Carroll Pandey MD at 16:41 EDT , Service support , Chest X-Ray 01/11/20 16:00 IMPRESSION: Normal x-ray examination of the chest. Electronically Signed: Carroll Pandey MD at 16:20 EDT , Service support , Current Medications Acetaminophen (Tylenol) 650 mg PO Q6H PRN PRN PRN Reason: Pain Score 1-10/Temp > 100.7 F Last Admin: 01/12/20 02:58 Dose: 650 mg Documented by: Al Hydroxide/Mg Hydroxide (Mylanta Ii) 30 ml PO Q6H PRN PRN PRN Reason: Gastric Burning Albuterol Sulfate (Ventolin Aerosols) 2.5 mg INHALATION Q2H PRN PRN PRN Reason: SOB/Wheezing Aspirin (Ecotrin) 81 mg PO DAILY@0800 [facility] Calcium Acetate (Phoslo Gel Cap) 2,001 mg PO TIDCM [facility] Cholecalciferol (Vitamin D (25mcg)) 1,000 unit PO DAILY [facility] Clotrimazole (Lotrisone) 1 applic TOPICAL BID [facility]; Protocol Last Admin: 01/11/20 21:20 Dose: 1 applic Documented by: Dextrose (D50w Syringe) 0 gm IV X1 PRN; Protocol PRN Reason: Hypoglycemia Doxepin HCl (Sinequan) 25 mg PO QHS PRN PRN Reason: SLEEP Last Admin: 01/11/20 22:40 Dose: 25 mg Documented by: Furosemide (Lasix) 20 mg PO DAILY [facility] Glucagon () 1 mg IM .X1 PRN PRN Reason: Hypoglycemia Heparin Sodium (Porcine) (Heparin Na) 5,000 unit SC Q8 [facility] Last Admin: 01/12/20 06:01 Dose: 5,000 unit Documented by: Hydralazine HCl (Apresoline Iv) 10 mg IV Q4H PRN PRN PRN Reason: SBP more than 180 mmHg Sodium Chloride () 250 mls @ 15 mls/hr IV .[id number] PRN PRN Reason: Saline Flush Sodium Chloride () 250 mls @ 15 mls/hr IV .[id number] PRN PRN Reason: Additional IVPB Infusion Piperacillin Sod/Tazobactam (Sod 3.375 gm/ Sodium Chloride) 50 mls @ 12.5 mls/hr IV Q12H [facility] Last Infusion: 01/12/20 07:00 Dose: Infused Documented by: Vancomycin IV Pharmacy to Dose (1 ea/ Sodium Chloride) 500 mls @ 250 mls/hr IV DAILY [facility]; Protocol Insulin Glargine (Lantus (Bkc)) 10 units SC BID [facility] Last Admin: 01/11/20 21:18 Dose: 10 u Documented by: Insulin Human Lispro (Humalog Kwikpen (Bk)) 0 unit SC ACHS [facility]; Protocol Last Admin: 01/12/20 06:47 Dose: 2 u Documented by: Levothyroxine Sodium (Synthroid) 200 mcg PO DAILY@0600 [facility] Last Admin: 01/12/20 06:01 Dose: 200 mcg Documented by: Metoprolol Tartrate (Lopressor (Beta Nohemy)) 25 mg PO BID [facility] Last Admin: 01/11/20 23:37 Dose: Not Given Documented by: Morphine Sulfate () 2 mg IV Q3H PRN PRN PRN Reason: Pain Score 6-10/10 Nitroglycerin (Nitrostat) 0.4 mg SUBLINGUAL Q5M PRN PRN Reason: CARDIAC/CHEST PAIN Oxycodone HCl (Oxyir) 5 mg PO Q4H PRN PRN PRN Reason: Pain Score 4-5/10 Last Admin: 01/12/20 03:10 Dose: 5 mg Documented by: Sodium Chloride () 10 - 40 ml IV UD PRN PRN Reason: SALINE FLUSH Last Admin: 01/12/20 06:02 Dose: 10 ml Documented by: Vilazodone HCl (Viibryd) 40 mg PO QHS EZEQUIEL Last Admin: 01/11/20 21:20 Dose: 40 mg Documented by: Assessment/Plan Active and Suspected Problems (Last Reviewed 01/03/20 @ 08:32 by Danette Marques) Cellulitis (Acute) Severe sepsis (Acute) RECOMMENDATIONS: 1. Continue antimicrobials per infectious diseases recommendations. 2. Hemodialysis per nephrology recommendations. 3. Wean supplemental oxygen as tolerated. 4. Encourage incentive spirometer use and mobilize patient as tolerated. 5. Recommend outpatient pulmonary follow-up so that a baseline diagnostic polysomnogram can be completed. 6. The patient is medically stable for transfer out of the intensive care unit. Will sign off from a critical care perspective. IMPRESSIONS: 1. Severe sepsis Appears to be secondary to a component of panniculitis and bilateral lower extremity cellulitis. The patient did receive IV fluid resuscitation and has remained hemodynamically stable. She is on appropriate antimicrobial therapy. Vancomycin can be discontinued from my perspective. Infectious diseases consultation is currently pending. 2. End-stage renal disease on hemodialysis Continue hemodialysis per nephrology recommendations. 3. Super morbid obesity/diabetes mellitus/mitral sten osis/hypertension/hyperlipidemia/hypothyroidism Complicates care, management, recovery and prognosis. The patient is at high risk for underlying sleep disordered breathing. I would recommend outpatient pulmonary follow-up so that a diagnostic polysomnogram can be completed. In the interim, empiric BiPAP therapy can be offered to the patient on a nightly basis. This note was generated with [employer]er[employer] dictation software. It may contain incorrect words, spelling, and punctuation that were not noted in checking the note before signing. Inpatient E&M: 07124 Init Hosp L3
--- NOTE | 2020-01-12 07:42 | PCM.PN.BLA ---
Progress Note febrile last night. Received HD last night with 2.5L fluid removal. EDW 160kg. Leukocytosis improving on iv antibx. Blood cx pending. ESRD next dialysis on Wednesday, chronic days TTS. STROKE Vital Signs/Narrative: Vital Signs Temp Pulse Resp BP Pulse Ox 01/12/20 07:00 99.9 F H 90 21 H 111/55 L 94 01/12/20 06:00 99.9 F H 84 19 H 115/54 L 97 01/12/20 05:00 100.1 F H 85 22 H 93/51 L 95 01/12/20 04:00 101 F H 89 23 H 97/53 L 93
--- NOTE | 2020-01-12 08:05 | PCM.RX.CS ---
Consult Pharmacy has been consulted to manage selected antiobiotic: Vancomycin Type of Consult: New start Prior Doses of Antibiotics Received/Current Regimen: Medications Discontinued Medications Vancomycin HCl 2,000 mg/ (Sodium Chloride) 540 mls @ 250 mls/hr IV X1 ONE Stop: 01/11/20 16:54 Last Admin: 01/11/20 19:10 Dose: Infused Documented by: Labs: Sodium 134 mmol/L (136-145) L 01/12/20 04:50 Potassium 4.0 mmol/L (3.5-5.1) 01/12/20 04:50 Chloride 98 mmol/L (98-107) 01/12/20 04:50 Carbon Dioxide 26.0 mmol/L (21.0-32.0) 01/12/20 04:50 Anion Gap 10 (5-15) 01/11/20 15:02 BUN 29 mg/dL (7-18) H 01/12/20 04:50 Creatinine 4.49 mg/dL (0.55-1.02) H 01/12/20 04:50 Est GFR (MDRD) Af Amer 13 mL/min (>60) L 01/12/20 04:50 Est GFR (MDRD) Non-Af 10 mL/min (>60) L 01/12/20 04:50 BUN/Creatinine Ratio 6.5 RATIO (10-20) L 01/12/20 04:50 Glucose 202 mg/dL (74-106) H 01/12/20 04:50 Weight used for dosin kg Goal Trough: 15-20 mcg/mL Pharmacy Plan for Drug Dosing: Patient is TTS dialysis. Received 2g load followed by supplemental 1g dose. Random pre-dialysis level tomorrow with subsequent dosing per policy. Pharmacy Service will continue to monitor and adjust dosing as required. Follow-Up Labs: Trough Vancomycin - Random 01/12 @ 0600
[2020-01-12] MEDS: Calcium Acetate 667 MG Capsule 2001 MG PO ×3 (09:20→17:00)
[2020-01-12] MEDS: Metoprolol Tartrate 25 MG Tablet PO ×2 (09:21→23:08)
[2020-01-12] MEDS: Furosemide 20 MG Tablet PO (09:21)
[2020-01-12] MEDS: Aspirin E.C. 81 MG Tablet PO (09:21)
[2020-01-12] MEDS: Clotrimazole/Betamethasone 1 Tube 1 APPLIC TOPICAL ×2 (09:21→23:07)
--- NOTE | 2020-01-12 10:05 | CASEMGMT ---
RN JOANN ARCHITECTURAL INSPECTOR CM to room to meet with patient for initial transition planning/care coordination assessment. RN JOANN introduced self and role at [facility]. Pt voices understanding and consents to assessment at this time. Pt resting in bed in no distress at this time. Pt is A/O at this time and answers all questions appropriately. Care providers, pharmacy, and demographics verified/updated at this time. PCP: Dr Kramer Specialists: Dr Lambert--nephrology Dialysis: ESRD--Goes to [facility]. Chair time: 1100. Call placed to [facility] and they were made aware pt is @ [facility]. Preferred Pharmacy: [facility] Insurance: [facility], MMO Prescription Benefit: Yes Living Will/HPOA: Pt states thinks she has completed these, but she is not sure. Pt made aware that she can contact as an out-pt and make appt in the future if she decides she would like to talk with someone about this or would like to utilize [facility] social work for advanced directive completion if it is determined she has not completed them already or if she wants to make any changes. Given Film And Video Graphics Designer Rac card with information and contact number. Pt expresses understanding. LNOK: , Marcelino. 2 daughters: Jackelyn Kauffman and Glory Still Living Arrangements: Lives w/her in one-story home. 12 steps to enter thru front of the house. 1-2 steps to enter thru the back. Pt states her assists her with getting off of the couch b/c it sits too low and he also assists her w/bathing/dressing. Pt states she does the household mgmt tasks, but states, My is starting to learn how to do those things so he can help me. Pt states she bathes, but it has been becoming more difficult to get in/out of tub. She does not have a tub bench ,grab bars, or hand-held shower but thinks she would eventually like to get these in the future She was made aware [facility] does not cover cost of these items, but that she could check at local DME Co's, drug stores, [id number] stores, or on-line. She was provided w/list of local DME companies. Transportation: Pt states her drives and states no transportation concerns at this time. DME: [facility] has the following DME: hospital bed, WW. Pt states may eventually get tub bench, hand rails, and hand held shower, as mentioned above. HHC/SNF: No history of either and pt denies needs. States does not feel she needs HHC or OP therapy. Made aware to discuss these with her PCP if she decides in the future she would like these. Pt wishes to return home and states has no concerns with going home at time of discharge. CM to follow for any futher discharge planning/needs. Pt voices no further concerns/needs at this time. Advised pt to ask for CM if any further questions/concerns/needs arise. Voices understanding. PLAN: Home w/spousal support and discharge plans in place. Zeke RAVI RN CM
[2020-01-12 11:36] LABS: Bedside Glucose 281 mg/dL (70-110)
--- NOTE | 2020-01-12 16:13 | CON.PCM_ITS ---
Problem List (1) Cellulitis Status: Acute Reason for Consult: sepsis Consulted by: Dr. Grubbs History of Present Illness: The patient is a 69 year old Fwith ESRD, obesity, presented to ED 01/10 with several days of progressive lower abd pain, redness, and fever. No trauma, no drainage. Recently started on antifungals for some yeast. No issues with LUE fistula for HD. Pain was severe, came to ED, given vanc/zosyn. Feeling about the same today. Full ROS performed and neg except as noted above. - Medical History Past Medical History (Chronic Problems): Chronic Problems (Last Reviewed 01/03/20 @ 08:32 by Danette Marques) Pedal edema (Chronic) Continue Lasix. Will monitor. Shortness of breath (Chronic) This is chronic and stable. We are checking an echo in 6 months to evaluate for progression of her mitral stenosis. At this time it appears to be related to her significant obesity. Discussed weight loss with the patient. 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 [Ecotrin] 81 mg PO DAILY@0800 #30 tab 06/01/14 dulaglutide 1.5 mg/0.5 mL 1.5 mg SC 04/11/19 subcutaneous pen injector levothyroxine 200 mcg tablet 200 mcg PO DAILY 04/11/19 B complex-vitamin C-folic acid 0.8 1 tab PO DAILY 12/13/19 mg tablet calcium acetate 667 mg tablet 2,001 mg PO TID 12/13/19 cholecalciferol (vitamin D3) 25 25 mcg PO DAILY 12/13/19 mcg (1,000 unit) tablet doxepin 25 mg capsule 25 mg PO QHS PRN 12/13/19 insulin regular hum U-500 conc 500 170 unit SC BID ml 12/13/19 unit/mL subcutaneous soln metoprolol tartrate 50 mg tablet 25 mg PO BID tab 12/13/19 clotrimazole-betamethasone 1 1 applic TOPICAL BID 14 Days #45 g 01/03/20 %-0.05 % topical cream diphenoxylate-atropine 2.5 1 tab PO QHS PRN 01/03/20 mg-0.025 mg tablet Furosemide [Lasix] 20 mg PO DAILY 01/11/20 - Social History SMOKING STATUS:: Former smoker Vital Signs Temp Pulse Resp BP Pulse Ox 99.4 F H 81 20 H 134/74 H 94 01/12/20 10:48 01/12/20 14:56 01/12/20 10:48 01/12/20 10:48 01/12/20 10:48 Oxygen Flow Rate (L/min) 2 Oxygen Delivery Method Nasal Cannula Weight: 162.1 kg Body Mass Index (BMI) 64.7 Finger Stick Blood Glucose 140 Microbiology Past 72 Hours 01/11/20 15:35 Urine Culture - Preliminary Urine, Clean Catch Streptococcus group B Laboratory Tests Past 24 Hrs 01/11/20 01/11/20 01/11/20 19:30 19:30 19:30 WBC RBC Hgb Hct MCV MCH MCHC RDW Std Deviation RDW Coeff of Ben Plt Count MPV Immature Gran % (Auto) Neut % (Auto) Lymph % (Auto) [place] % (Auto) Eos % (Auto) Baso % (Auto) Absolute Neuts (auto) Absolute Lymphs (auto) Nucleated RBC % PT 13.7 INR 1.1 APTT 23.2 L Sodium Potassium Chloride Carbon Dioxide BUN Creatinine Estim Creat Clear Calc Est GFR (MDRD) Af Amer Est GFR (MDRD) Non-Af BUN/Creatinine Ratio Glucose Lactic Acid Calcium Phosphorus Magnesium 2.4 Total Creatine Kinase 242 H Albumin TSH MRSA (PCR) Negative 01/11/20 01/12/20 01/12/20 21:13 04:50 04:50 WBC 8.3 RBC 3.70 L Hgb 11.6 L Hct 37.6 MCV 101.6 H MCH 31.4 MCHC 30.9 L RDW Std Deviation 58.7 H RDW Coeff of Ben 15.6 H Plt Count 183 MPV 10.3 Immature Gran % (Auto) 0.500 Neut % (Auto) 86.3 H Lymph % (Auto) 8.2 L [place] % (Auto) 4.2 Eos % (Auto) 0.6 Baso % (Auto) 0.2 Absolute Neuts (auto) 7.1 Absolute Lymphs (auto) 0.68 L Nucleated RBC % 0 PT INR APTT Sodium 134 L Potassium 4.0 Chloride 98 Carbon Dioxide 26.0 BUN 29 H Creatinine 4.49 H Estim Creat Clear Calc 9.62 Est GFR (MDRD) Af Amer 13 L Est GFR (MDRD) Non-Af 10 L BUN/Creatinine Ratio 6.5 L Glucose 202 H Lactic Acid 1.6 Calcium 7.6 L Phosphorus 5.1 H Magnesium Total Creatine Kinase Albumin 2.4 L TSH 3.65 MRSA (PCR) - Other Studies Radiology: [] reviewed Other Studies: [] Route of nutrition/ use of supplements: [] Nutritional Intake: [] IV Site: [] Freeman Catheter: [] - Physical Exam General: Alert, Oriented x3, Cooperative, No apparent distress HEENT: Atraumatic, PERRLA, EOMI Neck: Supple, No Nodes Lungs: Clear to auscultation, Normal air movement Cardiovascular: Regular rate, Regular Rhythm Abdomen: Soft, Obese, Tender - lower abd redness, tenderness, no induration Extremities: Edema Skin: No rashes - no other rash IV Site: Peripheral, without redness Musculoskeletal: No Tenderness to Palpation of Joints or Extremities Neurological: Cranial nerves II-XII grossly intact - Assessment/Plan Antibiotics: [] Assessment/Plan: [] Active and Suspected Problems (Last Reviewed 01/03/20 @ 08:32 by Danette Marques) Cellulitis (Acute) Severe sepsis (Acute) severe sepsis due to abd panniculitis with h/o ESRD - given vanc. Cxs pending. Cont zosyn. If she shows improvement and cxs neg, plan would be for discharge on one week of doxy and augmentin adjust for GFR. Will follow, thank you
[2020-01-12 17:20] LABS: Bedside Glucose 206 mg/dL (70-110)
--- NOTE | 2020-01-12 17:29 | PCM.PROGNOTE ---
Patient Problems: Active and Suspected Problems (Last Reviewed 01/03/20 @ 08:32 by Danette Marques) Cellulitis (Acute) Severe sepsis (Acute) Subjective: Patient was seen and examined today, she has a large area of redness over her lower abdominal area, this area is tender to palpation. I had infectious diseases see the patient, they recommended continuing IV Zosyn. - Physical Exam Vitals/I&O's: Vital Signs Temp Pulse Resp BP Pulse Ox 98.7 F 85 20 H 149/70 H 96 01/12/20 16:40 01/12/20 16:40 01/12/20 16:40 01/12/20 16:40 01/12/20 16:40 Oxygen Flow Rate (L/min) 2 Oxygen Delivery Method Nasal Cannula Weight: 162.1 kg Body Mass Index (BMI) 64.7 Finger Stick Blood Glucose 140 Intake and Output for Last 24 Hours 01/10/20 01/11/20 01/12/20 23:59 23:59 23:59 Intake Total 1910.00 / 1910.00 690 / 690 Output Total 450 / 460 103 / 103 Balance 1460.00 / 1450.00 587 / 587 General: Alert, Oriented x3, Cooperative, No apparent distress, Well developed, Well nourished HEENT: Atraumatic, PERRLA, EOMI, Normocephalic Oral: Moist Mucosa Neck: Supple, No JVD, Trachea Midline, Thyroid Normal Size and Texture Lungs: Clear to auscultation, Normal air movement, No rhonchi, Wheezes - Scattered expiratory wheezes are noted anteriorly Cardiovascular: Regular rate, Regular Rhythm, Normal S1, Normal S2, No murmurs, PMI Normal, No rub noted, No Gallop Abdomen: Bowel Sounds Present, Soft, Non-Distended, Obese, Tender - Lower abdomen is tender to palpation, - - Lower abdominal wall is reddened across the entire lower abdomen, there is a central indurated area noted approximately 6 cm x 6 cm under the umbilicus area. Extremities: No clubbing, No cyanosis, Capillary Refill Less than 3 Seconds Skin: No breakdown, Rash Present - There is a reddened area over the patient's lower abdominal area which involves her panniculus, there is a central hardened area in the middle of this reddened region. Musculoskeletal: No Tenderness to Palpation of Joints or Extremities Neurological: Cranial nerves II-XII grossly intact, Neuro grossly intact, Motor Exam 5/5 strength throughout, Sensory exam intact to light touch and pain Psych/Mental Status: Normal Affect, Appropriate, Alert and oriented to time, place, person, mood and affect Microbiology Past 72 Hours 01/11/20 15:35 Urine, Clean Catch Urine Culture - Preliminary Streptococcus group B Laboratory Results 01/11/20 19:05: POC Glucose 224 H 01/11/20 19:30: PT 13.7, INR 1.1, APTT 23.2 L 01/11/20 19:30: Magnesium 2.4, Total Creatine Kinase 242 H 01/11/20 19:30: MRSA (PCR) Negative 01/11/20 21:13: Lactic Acid 1.6 01/11/20 21:14: POC Glucose 199 H 01/12/20 04:50: WBC 8.3, RBC 3.70 L, Hgb 11.6 L, Hct 37.6, MCV 101.6 H, MCH 31.4, MCHC 30.9 L, RDW Std Deviation 58.7 H, RDW Coeff of Ben 15.6 H, Plt Count 183, MPV 10.3, Immature Gran % (Auto) 0.500, Neut % (Auto) 86.3 H, Lymph % (Auto) 8.2 L, [place] % (Auto) 4.2, Eos % (Auto) 0.6, Baso % (Auto) 0.2, Absolute Neuts (auto) 7.1, Absolute Lymphs (auto) 0.68 L, Nucleated RBC % 0 01/12/20 04:50: Sodium 134 L, Potassium 4.0, Chloride 98, Carbon Dioxide 26.0, BUN 29 H, Creatinine 4.49 H, Estim Creat Clear Calc 9.62, Est GFR (MDRD) Af Amer 13 L, Est GFR (MDRD) Non-Af 10 L, BUN/Creatinine Ratio 6.5 L, Glucose 202 H, Calcium 7.6 L, Phosphorus 5.1 H, Albumin 2.4 L, TSH 3.65 01/12/20 06:46: POC Glucose 192 H 01/12/20 11:13: POC Glucose 281 H 01/12/20 16:53: POC Glucose 206 H Current Medications Acetaminophen (Tylenol) 650 mg PO Q6H PRN PRN PRN Reason: Pain Score 1-10/Temp > 100.7 F Last Admin: 01/12/20 11:22 Dose: 650 mg Documented by: Albuterol Sulfate (Ventolin Aerosols) 2.5 mg INHALATION Q2H PRN PRN PRN Reason: SOB/Wheezing Aspirin (Ecotrin) 81 mg PO DAILY@0800 [facility] Last Admin: 01/12/20 09:21 Dose: 81 mg Documented by: Calcium Acetate (Phoslo Gel Cap) 2,001 mg PO TIDCM [facility] Last Admin: 01/12/20 17:00 Dose: 2,001 mg Documented by: Clotrimazole (Lotrisone) 1 applic TOPICAL BID [facility]; Protocol Last Admin: 01/12/20 09:21 Dose: 1 applic Documented by: Dextrose (D50w Syringe) 0 gm IV X1 PRN; Protocol PRN Reason: Hypoglycemia Doxepin HCl (Sinequan) 25 mg PO QHS PRN PRN Reason: SLEEP Last Admin: 01/11/20 22:40 Dose: 25 mg Documented by: Furosemide (Lasix) 20 mg PO DAILY [facility] Last Admin: 01/12/20 09:21 Dose: 20 mg Documented by: Glucagon () 1 mg IM .X1 PRN PRN Reason: Hypoglycemia Heparin Sodium (Porcine) (Heparin Na) 5,000 unit SC Q8 [facility] Last Admin: 01/12/20 14:45 Dose: 5,000 unit Documented by: Sodium Chloride () 250 mls @ 15 mls/hr IV .[id number] PRN PRN Reason: Saline Flush Sodium Chloride () 250 mls @ 15 mls/hr IV .[id number] PRN PRN Reason: Additional IVPB Infusion Piperacillin Sod/Tazobactam (Sod 3.375 gm/ Sodium Chloride) 50 mls @ 12.5 mls/hr IV Q12H [facility] Last Admin: 01/12/20 16:49 Dose: 12.5 mls/hr Documented by: Insulin Glargine (Lantus (Bkc)) 10 units SC BID [facility] Last Admin: 01/12/20 09:21 Dose: 10 u Documented by: Insulin Human Lispro (Humalog Kwikpen (Bk)) 0 unit SC ACHS [facility]; Protocol Last Admin: 01/12/20 16:59 Dose: 4 u Documented by: Levothyroxine Sodium (Synthroid) 200 mcg PO DAILY@0600 [facility] Last Admin: 01/12/20 06:01 Dose: 200 mcg Documented by: Metoprolol Tartrate (Lopressor (Beta Nohemy)) 25 mg PO BID [facility] Last Admin: 01/12/20 09:21 Dose: 25 mg Documented by: Sodium Chloride () 10 - 40 ml IV UD PRN PRN Reason: SALINE FLUSH Last Admin: 01/12/20 16:49 Dose: 10 ml Documented by: Vilazodone HCl (Viibryd) 40 mg PO QHS [facility] Last Admin: 01/11/20 21:20 Dose: 40 mg Documented by: Medical Necessity - Tobacco Use Smoking Status: Former smoker Tobacco Use: Cigarettes Assessment/Plan All Active Problems (Last Reviewed 01/03/20 @ 08:32 by Danette Marques) Cellulitis (Acute) Severe sepsis (Acute) Preoperative cardiovascular examination (Acute) Vitreous hemorrhage of right eye (Acute) Hypoxia (Resolved) Shortness of breath (Resolved) #1 severe sepsis secondary to cellulitis of the abdominal wall-patient will remain on present antibiotics #2 end-stage renal disease on dialysis #3 morbid obesity #4 cellulitis of the abdominal wall-patient is currently on Zosyn, she received vancomycin yesterday #5 essential hypertension Inpatient E&M: [id number] [facility] Hosp L2
[2020-01-12] MEDS: VILAZODONE HYDROCHLORIDE 10 MG TABLET 40 MG PO (23:07)
[2020-01-12] MEDS: Doxepin Hcl 25 MG Capsule PO (23:08)
[2020-01-12 23:56] LABS: Bedside Glucose 252 mg/dL (70-110)
[2020-01-13] VITALS (13 sets, daily range): BP systolic 102–134; BP diastolic 48–69; PULSE 73–86; RESP 18–20; TEMP 36.5–36.9; O2SAT 93–96
[2020-01-13] MEDS: Heparin Injection (Vial) 5,000 UNIT/ML VIAL 5000 UNIT SC ×3 (06:44→21:54)
[2020-01-13] MEDS: Levothyroxine 100 MCG Tablet 200 MCG PO (06:45)
[2020-01-13] MEDS: Insulin Lispro 100 UNIT/ML INSULN.PEN SC ×4 (06:51→21:55)
[2020-01-13 07:05] LABS: Bedside Glucose 174 mg/dL (70-110)
[2020-01-13 12:36] LABS: Bedside Glucose 153 mg/dL (70-110)
--- NOTE | 2020-01-13 12:50 | DIALYSIS ---
hemodialysis completed x 4 hrs. Access via LFA AVF 15G needles. net fluid removal 2500ml. Ptr tyler well. See HD flowsheet on chart.
--- NOTE | 2020-01-13 13:15 | PN_ITS ---
Patient Problems: Active and Suspected Problems (Last Reviewed 01/03/20 @ 08:32 by Danette Marques) Cellulitis (Acute) Severe sepsis (Acute) Subjective: Patient seen and examined. Undergoing dialysis. Denies fever, chills. Reports abdominal wall pain improved. - Physical Exam Vitals/I&O's: Vital Signs Temp Pulse Resp BP Pulse Ox 98.5 F 78 20 H 122/61 H 93 01/13/20 12:49 01/13/20 12:49 01/13/20 12:49 01/13/20 12:49 01/13/20 07:00 Oxygen Flow Rate (L/min) 2 Oxygen Delivery Method Nasal Cannula Weight: 358 lb 7.546 oz Body Mass Index (BMI) 64.7 Finger Stick Blood Glucose 140 Intake and Output for Last 24 Hours 01/11/20 01/12/20 01/13/20 23:59 23:59 23:59 Intake Total 1910.00 / 1910.00 1220 / 1220 250 / 250 Output Total 450 / 460 178 / 178 2500 / 2500 Balance 1460.00 / 1450.00 1042 / 1042 -2250 / -2250 General: Alert, Oriented x3, Cooperative HEENT: Atraumatic, PERRLA, EOMI, Normocephalic Neck: Supple, No JVD, Negative Carotid Bruits Lungs: Clear to auscultation, Diminished Cardiovascular: Regular rate, Regular Rhythm, Normal S1, Normal S2, No murmurs Abdomen: Bowel Sounds Present, Soft, Non Tender, Non-Distended, Obese, - - Lower abdominal skin tender due to cellulitis. Extremities: No clubbing, No cyanosis, - - Left upper extremity AV fistula Skin: - - Lower abdominal/pannus area with diffuse erythema and warmth. Musculoskeletal: No Tenderness to Palpation of Joints or Extremities Neurological: Cranial nerves II-XII grossly intact Psych/Mental Status: Normal Affect, Appropriate Microbiology Past 72 Hours 01/11/20 15:24 Blood Culture (Wb) - Right Hand Blood Culture - Preliminary No growth in 48 hours. 01/11/20 15:02 Blood Culture (Wb) - Anticubital Right Blood Culture - Preliminary No growth in 48 hours. 01/11/20 15:35 Urine, Clean Catch Urine Culture - Final Streptococcus agalactiae (B) Laboratory Results 01/12/20 16:53: POC Glucose 206 H 01/12/20 23:20: POC Glucose 252 H 01/13/20 06:50: POC Glucose 174 H 01/13/20 12:28: POC Glucose 153 H Current Medications Acetaminophen (Tylenol) 650 mg PO Q6H PRN PRN PRN Reason: Pain Score 1-10/Temp > 100.7 F Last Admin: 01/12/20 11:22 Dose: 650 mg Documented by: Albuterol Sulfate (Ventolin Aerosols) 2.5 mg INHALATION Q2H PRN PRN PRN Reason: SOB/Wheezing Aspirin (Ecotrin) 81 mg PO DAILY@0800 [facility] Last Admin: 01/12/20 09:21 Dose: 81 mg Documented by: Calcium Acetate (Phoslo Gel Cap) 2,001 mg PO TIDCM [facility] Last Admin: 01/12/20 17:00 Dose: 2,001 mg Documented by: Clotrimazole (Lotrisone) 1 applic TOPICAL BID [facility]; Protocol Last Admin: 01/12/20 23:07 Dose: 1 applic Documented by: Dextrose (D50w Syringe) 0 gm IV X1 PRN; Protocol PRN Reason: Hypoglycemia Doxepin HCl (Sinequan) 25 mg PO QHS PRN PRN Reason: SLEEP Last Admin: 01/12/20 23:08 Dose: 25 mg Documented by: Furosemide (Lasix) 20 mg PO DAILY [facility] Last Admin: 01/12/20 09:21 Dose: 20 mg Documented by: Glucagon () 1 mg IM .X1 PRN PRN Reason: Hypoglycemia Heparin Sodium (Porcine) (Heparin Na) 5,000 unit SC Q8 [facility] Last Admin: 01/13/20 06:44 Dose: 5,000 unit Documented by: Sodium Chloride () 250 mls @ 15 mls/hr IV .[id number] PRN PRN Reason: Saline Flush Sodium Chloride () 250 mls @ 15 mls/hr IV .[id number] PRN PRN Reason: Additional IVPB Infusion Piperacillin Sod/Tazobactam (Sod 3.375 gm/ Sodium Chloride) 50 mls @ 12.5 mls/hr IV Q12H [facility] Last Infusion: 01/13/20 10:09 Dose: Infused Documented by: Insulin Glargine (Lantus (Bkc)) 10 units SC BID [facility] Last Admin: 01/12/20 23:21 Dose: 10 u Documented by: Insulin Human Lispro (Humalog Kwikpen (Bkc)) 0 unit SC ACHS [facility]; Protocol Last Admin: 01/13/20 06:51 Dose: 2 u Documented by: Levothyroxine Sodium (Synthroid) 200 mcg PO DAILY@0600 [facility] Last Admin: 01/13/20 06:45 Dose: 200 mcg Documented by: Metoprolol Tartrate (Lopressor (Beta Nohemy)) 25 mg PO BID [facility] Last Admin: 01/12/20 23:08 Dose: 25 mg Documented by: Sodium Chloride () 10 - 40 ml IV UD PRN PRN Reason: SALINE FLUSH Last Admin: 01/12/20 23:17 Dose: 10 ml Documented by: Vilazodone HCl (Viibryd) 40 mg PO QHS [facility] Last Admin: 01/12/20 23:07 Dose: 40 mg Documented by: Medical Necessity - Tobacco Use Smoking Status: Former smoker Tobacco Use: Cigarettes Assessment/Plan All Active Problems (Last Reviewed 01/03/20 @ 08:32 by Danette Marques) Cellulitis (Acute) Severe sepsis (Acute) Preoperative cardiovascular examination (Acute) Vitreous hemorrhage of right eye (Acute) Hypoxia (Resolved) Shortness of breath (Resolved) 1. Severe sepsis secondary to lower abdominal wall cellulitis/panniculitis- infectious disease following. Blood cultures show no growth. Continue IV Zosyn with plans for oral transition tomorrow if improved. Suspect component of candidal intertrigo as well. Will begin fluconazole 150 mg once weekly for 4 weeks. Keep area clean and dry and use barrier for moisture absorption. 2. Strep agalactiae bacteruria-suspect colonization. On antibiotics per above. 3. End-stage renal disease on hemodialysis-nephrology consulted. Continue dialysis regimen. 4. Hypertension-stable, continue metoprolol, Lasix. 5. Type 2 diabetes [id number] with sliding scale insulin. Continue home insulin regimen. 6. History of TIAs-on aspirin. 7. Hypothyroidism-continue Synthroid regimen. 8. Depression-on Viibryd. 9. Morbid obesity- encouraged diet and lifestyle modifications. DVT prophylaxis- Heparin sc/SCDs This patient was seen by ADITI Higuera under the supervision of Dr. Grubbs.
[2020-01-13] MEDS: Aspirin E.C. 81 MG Tablet PO (13:29)
[2020-01-13] MEDS: Furosemide 20 MG Tablet PO (13:29)
[2020-01-13] MEDS: Calcium Acetate 667 MG Capsule 2001 MG PO ×2 (13:30→16:31)
[2020-01-13] MEDS: Metoprolol Tartrate 25 MG Tablet PO ×2 (13:30→21:58)
[2020-01-13] MEDS: Acetaminophen 325 MG Tablet 650 MG PO (13:30)
[2020-01-13] MEDS: Clotrimazole/Betamethasone 1 Tube 1 APPLIC TOPICAL ×2 (13:38→22:04)
[2020-01-13 14:07] LABS: Hemoglobin A1c 10.4 % (3.8-5.6)
[2020-01-13] MEDS: FLUCONAZOLE 150 MG TABLET PO (14:56)
[2020-01-13 16:46] LABS: Bedside Glucose 306 mg/dL (70-110)
[2020-01-13] MEDS: VILAZODONE HYDROCHLORIDE 10 MG TABLET 40 MG PO (22:04)
[2020-01-13] MEDS: 0.9% Saline Lock 10 ML Syringe IV (22:10)
[2020-01-13 22:16] LABS: Bedside Glucose 271 mg/dL (70-110)
[2020-01-14] VITALS (16 sets, daily range): BP systolic 105–143; BP diastolic 53–70; PULSE 71–87; RESP 18–20; TEMP 36.6–37.1; O2SAT 68–95
[2020-01-14] MEDS: Doxepin Hcl 25 MG Capsule PO ×2 (00:40→21:28)
[2020-01-14] MEDS: 0.9% Saline Lock 10 ML Syringe IV ×3 (03:39→19:52)
[2020-01-14] MEDS: Heparin Injection (Vial) 5,000 UNIT/ML VIAL 5000 UNIT SC ×3 (05:49→21:24)
[2020-01-14] MEDS: Levothyroxine 100 MCG Tablet 200 MCG PO (05:49)
[2020-01-14 06:10] LABS: Hematocrit 34.9 % (37-47); Hemoglobin 10.7 g/dL (12.0-15.0); Mean Corp Hgb Conc 30.7 g/dL (32-36); Mean Corpuscular Hgb 30.9 pg (27.0-32.0); Mean Corpuscular Volume 100.9 fL (81-99); Mean Platelet Vol. 10.2 fl (6.2-12.0); Platelet Count 209 K/mm3 (150-450); RBC Distribution Width CV 15.2 % (11.6-14.6); Red Blood Count 3.46 M/mm3 (4.2-5.4); White Blood Count 7.4 K/mm3 (4.4-11.0)
[2020-01-14 06:33] LABS: Anion Gap 9 (5-15); BUN 29 mg/dL (7-18); BUN/Creat Ratio 6.1 RATIO (10-20); Chloride 96 mmol/L (98-107); Creatinine, Serum 4.79 mg/dL (0.55-1.02); EST Glomerular Filtration Rate 10 mL/min (>60); Est Glom Filt Rate - Afr Amer 12 mL/min (>60); Estimated Creatinine Clearance 9.01 ml/min; Glucose 156 mg/dL (74-106); Potassium 3.7 mmol/L (3.5-5.1); Sodium Level 135 mmol/L (136-145)
[2020-01-14] MEDS: Insulin Lispro 100 UNIT/ML INSULN.PEN SC ×4 (06:37→21:24)
[2020-01-14 06:46] LABS: Bedside Glucose 162 mg/dL (70-110)
[2020-01-14] MEDS: Calcium Acetate 667 MG Capsule 2001 MG PO ×3 (09:02→16:50)
[2020-01-14] MEDS: Aspirin E.C. 81 MG Tablet PO (09:02)
[2020-01-14] MEDS: Furosemide 20 MG Tablet PO (09:02)
[2020-01-14] MEDS: Metoprolol Tartrate 25 MG Tablet PO ×2 (09:03→21:26)
[2020-01-14] MEDS: Clotrimazole/Betamethasone 1 Tube 1 APPLIC TOPICAL ×2 (09:03→21:26)
--- NOTE | 2020-01-14 10:43 | CT_ITS ---
STUDY: CTA CHEST REASON FOR EXAM: Female, 69 years old. HYPOXIA RADIATION DOSAGE (If Supplied By Facility): CTDIvol = ( 38.35 ) mGy, DLP = ( 774.13 ) mGycm TECHNIQUE: The examination was performed with the intravenous administration of 100 mL of [id number]. Post-processing of the angiographic images was performed, with multiplanar reformation and MIP (maximum intensity projection) reconstruction. Individualized dose optimization techniques were used for this CT. COMPARISON: CT chest with contrast 08/27/2010. FINDINGS: Normal enhancement of the main pulmonary artery and right and left pulmonary arteries. Normal enhancement of the bilateral peripheral pulmonary arteries. There is no demonstrated pulmonary embolism. Normal thoracic aorta and visualized great vessels. There is no demonstrated aortic dissection. Mild cardiomegaly. Normal pericardium. Normal mediastinum. Normal hilar regions. Normal visualized trachea and bronchi. The lungs are well expanded. Motion artifacts throughout the pulmonary parenchyma without obvious infiltrates. Curvilinear subsegmental atelectases in the left posterior lung base. Normal pleura. Normal chest wall structures. No acute osseous abnormality. Normal visualized upper abdomen. CT/CTA Chest W/WO Contrast IMPRESSION: 1. Limited study due to patient''s size. 2. No CTA evidence of suspicious pulmonary thromboemboli, thoracic aortic aneurysm or dissection. 3. Breathing motion artifact throughout the lung parenchyma without obvious infiltrates. 4. Curvilinear subsegmental atelectases in the left posterior lung base. 5. No other additional findings or changes when compared to 08/27/2010. Electronically Signed: Jacky Hanna MD at 12:54 EDT , Service support ,
--- NOTE | 2020-01-14 12:36 | PN_ITS ---
Patient Problems: Active and Suspected Problems (Last Reviewed 01/03/20 @ 08:32 by Danette Marques) Cellulitis (Acute) Severe sepsis (Acute) Subjective: Patient seen and examined. Lower abdominal rash appears slightly improved from yesterday. Patient reports improvement in pain. Denies fever, chills. Denies shortness of breath however noted to have significant hypoxia when supplemental oxygen is removed. Patient states she is typically placed on oxygen during dialysis however has not had previous home oxygen. - Physical Exam Vitals/I&O's: Vital Signs Temp Pulse Resp BP Pulse Ox 98.1 F 83 18 106/53 L 90 01/14/20 09:00 01/14/20 09:03 01/14/20 09:00 01/14/20 09:03 01/14/20 10:22 Oxygen Flow Rate (L/min) [At 3 REST on Room Air] Oxygen Flow Rate (L/min) 2 Oxygen Delivery Method Nasal Cannula Weight: 355 lb 13.217 oz Body Mass Index (BMI) 64.7 Finger Stick Blood Glucose 140 Intake and Output for Last 24 Hours 01/12/20 01/13/20 01/14/20 23:59 23:59 23:59 Intake Total 1220 / 1220 900 / 900 650 / 650 Output Total 178 / 178 2500 / 2500 Balance 1042 / 1042 -1600 / -1600 650 / 650 General: Alert, Oriented x3, Cooperative HEENT: Atraumatic, PERRLA, EOMI, Normocephalic Neck: Supple, No JVD, Negative Carotid Bruits Lungs: Clear to auscultation, Diminished Cardiovascular: Regular rate, No murmurs Abdomen: Bowel Sounds Present, Soft, Non Tender, Non-Distended, Obese, - - Lower abdominal skin tender due to cellulitis. Extremities: No clubbing, No cyanosis, No edema, Capillary Refill Less than 3 Seconds, - - Left upper extremity AV fistula Skin: - - Lower abdominal/pannus area with diffuse erythema and warmth. Musculoskeletal: No Tenderness to Palpation of Joints or Extremities Neurological: Cranial nerves II-XII grossly intact, Neuro grossly intact Psych/Mental Status: Normal Affect, Appropriate Microbiology Past 72 Hours 01/11/20 15:24 Blood Culture (Wb) - Right Hand Blood Culture - Preliminary No growth in 48 hours. 01/11/20 15:02 Blood Culture (Wb) - Anticubital Right Blood Culture - Preliminary No growth in 48 hours. 01/11/20 15:35 Urine, Clean Catch Urine Culture - Final Streptococcus agalactiae (B) Laboratory Results 01/12/20 04:50: Hemoglobin A1c 10.4 H 01/13/20 12:28: POC Glucose 153 H 01/13/20 16:28: POC Glucose 306 H 01/13/20 21:53: POC Glucose 271 H 01/14/20 05:27: WBC 7.4, RBC 3.46 L, Hgb 10.7 L, Hct 34.9 L, MCV 100.9 H, MCH 30.9, MCHC 30.7 L, RDW Std Deviation 57.0 H, RDW Coeff of Ben 15.2 H, Plt Count 209, MPV 10.2 01/14/20 05:27: Sodium 135 L, Potassium 3.7, Chloride 96 L, Carbon Dioxide 30.0, Anion Gap 9, BUN 29 H, Creatinine 4.79 H, Estim Creat Clear Calc 9.01, Est GFR (MDRD) Af Amer 12 L, Est GFR (MDRD) Non-Af 10 L, BUN/Creatinine Ratio 6.1 L, Glucose 156 H, Calcium 8.0 L 01/14/20 06:35: POC Glucose 162 H Current Medications Acetaminophen (Tylenol) 650 mg PO Q6H PRN PRN PRN Reason: Pain Score 1-10/Temp > 100.7 F Last Admin: 01/13/20 13:30 Dose: 650 mg Documented by: Albuterol Sulfate (Ventolin Aerosols) 2.5 mg INHALATION Q2H PRN PRN PRN Reason: SOB/Wheezing Aspirin (Ecotrin) 81 mg PO DAILY@0800 [facility] Last Admin: 01/14/20 09:02 Dose: 81 mg Documented by: Calcium Acetate (Phoslo Gel Cap) 2,001 mg PO TIDCM [facility] Last Admin: 01/14/20 12:29 Dose: 2,001 mg Documented by: Clotrimazole (Lotrisone) 1 applic TOPICAL BID [facility]; Protocol Last Admin: 01/14/20 09:03 Dose: 1 applic Documented by: Dextrose (D50w Syringe) 0 gm IV X1 PRN; Protocol PRN Reason: Hypoglycemia Doxepin HCl (Sinequan) 25 mg PO QHS PRN PRN Reason: SLEEP Last Admin: 01/14/20 00:40 Dose: 25 mg Documented by: Furosemide (Lasix) 20 mg PO DAILY [facility] Last Admin: 01/14/20 09:02 Dose: 20 mg Documented by: Glucagon () 1 mg IM .X1 PRN PRN Reason: Hypoglycemia Heparin Sodium (Porcine) (Heparin Na) 5,000 unit SC Q8 [facility] Last Admin: 01/14/20 05:49 Dose: 5,000 unit Documented by: Sodium Chloride () 250 mls @ 15 mls/hr IV .[id number] PRN PRN Reason: Saline Flush Sodium Chloride () 250 mls @ 15 mls/hr IV .[id number] PRN PRN Reason: Additional IVPB Infusion Piperacillin Sod/Tazobactam (Sod 3.375 gm/ Sodium Chloride) 50 mls @ 12.5 mls/hr IV Q12H [facility] Last Infusion: 01/14/20 08:09 Dose: Infused Documented by: Insulin Glargine (Lantus (Bkc)) 10 units SC BID [facility] Last Admin: 01/14/20 09:04 Dose: 10 u Documented by: Insulin Human Lispro (Humalog Kwikpen (Bkc)) 0 unit SC ACHS [facility]; Protocol Last Admin: 01/14/20 12:31 Dose: 6 u Documented by: Levothyroxine Sodium (Synthroid) 200 mcg PO DAILY@0600 [facility] Last Admin: 01/14/20 05:49 Dose: 200 mcg Documented by: Metoprolol Tartrate (Lopressor (Beta Nohemy)) 25 mg PO BID [facility] Last Admin: 01/14/20 09:03 Dose: 25 mg Documented by: Sodium Chloride () 10 - 40 ml IV UD PRN PRN Reason: SALINE FLUSH Last Admin: 01/14/20 12:31 Dose: 10 ml Documented by: Vilazodone HCl (Viibryd) 40 mg PO QHS [facility] Last Admin: 01/13/20 22:04 Dose: 40 mg Documented by: Medical Necessity - Tobacco Use Smoking Status: Former smoker Tobacco Use: Cigarettes Assessment/Plan All Active Problems (Last Reviewed 01/03/20 @ 08:32 by Danette Marques) Cellulitis (Acute) Severe sepsis (Acute) Preoperative cardiovascular examination (Acute) Vitreous hemorrhage of right eye (Acute) Hypoxia (Resolved) Shortness of breath (Resolved) 1. Severe sepsis secondary to lower abdominal wall cellulitis/panniculitis- infectious disease following. Blood cultures show no growth. Continue IV Zosyn with plans for oral transition tomorrow. Suspect component of candidal intertrigo as well. Will begin fluconazole 150 mg once weekly for 4 weeks. Keep area clean and dry and use barrier for moisture absorption. 2. Strep agalactiae bacteruria-suspect colonization. On antibiotics per above. 3. Hypoxia-unclear etiology. Chest x-ray on admission normal. CTA ordered, pending. Patient underwent home oxygen testing and noted to be 68% on room air. Now on 3 L. Will await CTA results and initiate home supplemental oxygen. Continue supplement oxygen to maintain O2 sat above 90%. 4. End-stage renal disease on hemodialysis-nephrology consulted. Continue dialysis regimen. 5. Hypertension-stable, continue metoprolol, Lasix. 6. Type 2 diabetes [id number] with sliding scale insulin. Continue home insulin regimen. 7. History of TIAs-on aspirin. 8. Hypothyroidism-continue Synthroid regimen. 9. Depression-on Viibryd. 10. Morbid obesity- encouraged diet and lifestyle modifications. DVT prophylaxis- Heparin sc/SCDs This patient was seen by ADITI Higuera under the supervision of Dr. Grubbs.
[2020-01-14 12:51] LABS: Bedside Glucose 291 mg/dL (70-110)
[2020-01-14 16:06] LABS: Allen Test Positive; Base Excess 2 mmol/L (-2 to +2); Bicarbonate 27.2 mmol/L (22-26); Blood Gas Specimen Type ART; O2 Delivery Device Room Air; PO2 35 mmHG (75-100); SITE R Radial; SO2 67 % (95-99); Total Carbon Dioxide 29 mmol/L; pCO2 44.6 mmHg (35-45); pH 7.39 (7.35-7.45)
--- NOTE | 2020-01-14 16:19 | CPS ---
Critical ABG values verified times two. Reported results to Charge nurse Eleanor Alonzo.Verified by readback.
[2020-01-14 17:00] LABS: Bedside Glucose 227 mg/dL (70-110)
[2020-01-14 19:56] LABS: Allen Test Positive; Base Excess 2 mmol/L (-2 to +2); Bicarbonate 26.6 mmol/L (22-26); Blood Gas Specimen Type ART; FI02 21; O2 Delivery Device Room Air; PO2 39 mmHG (75-100); SITE R Radial; SO2 73 % (95-99); Total Carbon Dioxide 28 mmol/L; pCO2 43.4 mmHg (35-45)
--- NOTE | 2020-01-14 20:05 | PCM.HOSP.N ---
Hospitalist Note Repeat ABG reviewed. Discussed and reviewed repeat ABG with Dr. Wallace. Given 94% on 3L NC, not symptomatic, still suspect mixed and not true arterial sample. Per discussions will continue current interventions and plan AM ECHO with bubble study which Dr. Wills will follow-up on and re-evaluation patient.
[2020-01-14] MEDS: VILAZODONE HYDROCHLORIDE 10 MG TABLET 40 MG PO (21:27)
[2020-01-14 22:11] LABS: Bedside Glucose 247 mg/dL (70-110)
[2020-01-14] MEDS: Albuterol 2.5 MG/3 ML VIAL.NEB. INHALATION (22:30)
[2020-01-14] MEDS: Nystatin Powder 15gm Bottle 1 APPLIC TOPICAL (22:39)
[2020-01-15] VITALS (17 sets, daily range): BP systolic 96–152; BP diastolic 48–84; PULSE 74–97; RESP 16–20; TEMP 36.5–37.1; O2SAT 79–95
[2020-01-15] MEDS: Acetaminophen 325 MG Tablet 650 MG PO (00:16)
[2020-01-15] MEDS: Heparin Injection (Vial) 5,000 UNIT/ML VIAL 5000 UNIT SC ×3 (05:19→22:40)
[2020-01-15] MEDS: Nystatin Powder 15gm Bottle 1 APPLIC TOPICAL ×3 (05:20→22:40)
[2020-01-15] MEDS: 0.9% Saline Lock 10 ML Syringe IV ×2 (05:20→16:30)
[2020-01-15] MEDS: Levothyroxine 100 MCG Tablet 200 MCG PO (05:20)
--- NOTE | 2020-01-15 05:49 | CPS ---
CRITICAL VALUES RELAYED TO DR BY RN VIA A TEXT.
[2020-01-15] MEDS: Insulin Lispro 100 UNIT/ML INSULN.PEN SC ×4 (06:38→22:42)
[2020-01-15 06:45] LABS: Bedside Glucose 167 mg/dL (70-110)
[2020-01-15] MEDS: Albuterol 2.5 MG/3 ML VIAL.NEB. INHALATION (08:03)
[2020-01-15] MEDS: Calcium Acetate 667 MG Capsule 2001 MG PO ×3 (09:09→16:31)
[2020-01-15] MEDS: Aspirin E.C. 81 MG Tablet PO (09:09)
[2020-01-15] MEDS: Furosemide 20 MG Tablet PO (09:10)
[2020-01-15] MEDS: Metoprolol Tartrate 25 MG Tablet PO (09:10)
[2020-01-15] MEDS: Clotrimazole/Betamethasone 1 Tube 1 APPLIC TOPICAL ×2 (09:11→22:40)
--- NOTE | 2020-01-15 10:44 | PCM.PN.REN ---
Patient Problems: Active and Suspected Problems (Last Reviewed 01/03/20 @ 08:32 by Danette Marques) Cellulitis (Acute) Severe sepsis (Acute) Subjective: abdominal wound improving, less tender, less induration. Still with erythema. Remains on oxygen for hypoxemia. BP low. DW hospitalist yesterday. Pulmonary consulted, echo pending. - Physical Exam Vitals/I&O's: Vital Signs Temp Pulse Resp BP Pulse Ox 98.2 F 97 20 H 96/48 L 92 01/15/20 08:50 01/15/20 09:10 01/15/20 08:50 01/15/20 08:50 01/15/20 08:50 Oxygen Flow Rate (L/min) [At 3 REST on Room Air] Oxygen Flow Rate (L/min) 3.5 Oxygen Delivery Method Nasal Cannula Weight: 161.8 kg Body Mass Index (BMI) 64.7 Finger Stick Blood Glucose 140 Intake and Output for Last 24 Hours 01/13/20 01/14/20 01/15/20 23:59 23:59 23:59 Intake Total 900 / 900 940 / 1180 350 / 350 Output Total 2500 / 2500 Balance -1600 / -1600 940 / 1180 350 / 350 General: Alert, Oriented x3, Cooperative, - - faint upper airway wheeze Oral: Dry Mucosa, - - mouth breather Lungs: Diminished Cardiovascular: Regular rate Abdomen: Bowel Sounds Present, Soft, Non Tender, Obese Skin: Ulcer/ Wound - abdominal rash, induration improved, erythema, panniculitis persists Neurological: Cranial nerves II-XII grossly intact Psych/Mental Status: Normal Affect, Appropriate, Alert and oriented to time, place, person, mood and affect Microbiology Past 72 Hours 01/11/20 15:24 Blood Culture (Wb) - Right Hand Blood Culture - Preliminary No growth in 48 hours. 01/11/20 15:02 Blood Culture (Wb) - Anticubital Right Blood Culture - Preliminary No growth in 48 hours. 01/11/20 15:35 Urine, Clean Catch Urine Culture - Final Streptococcus agalactiae (B) Laboratory Results 01/14/20 12:27: POC Glucose 291 H 01/14/20 15:56: Specimen Type ART, Sample Site R Radial, pH 7.39, Bicarbonate Actual 27.2 H, Total CO2 29, Base Excess 2, O2 Saturation 67 L, ABG pCO2 44.6, ABG pO2 35 L*, Frankie Test Positive, O2 Delivery Device Room Air 01/14/20 16:39: POC Glucose 227 H 01/14/20 19:45: Specimen Type ART, Sample Site R Radial, pH 7.40, Bicarbonate Actual 26.6 H, Total CO2 28, Base Excess 2, O2 Saturation 73 L, O2 % 21, ABG pCO2 43.4, ABG pO2 39 L*, Frankie Test Positive, O2 Delivery Device Room Air 01/14/20 21:22: POC Glucose 247 H 01/15/20 06:36: POC Glucose 167 H Current Medications Acetaminophen (Tylenol) 650 mg PO Q6H PRN PRN PRN Reason: Pain Score 1-10/Temp > 100.7 F Last Admin: 01/15/20 00:16 Dose: 650 mg Documented by: Albuterol Sulfate (Ventolin Aerosols) 2.5 mg INHALATION Q2H PRN PRN PRN Reason: SOB/Wheezing Last Admin: 01/15/20 08:03 Dose: 2.5 mg Documented by: Aspirin (Ecotrin) 81 mg PO DAILY@0800 [facility] Last Admin: 01/15/20 09:09 Dose: 81 mg Documented by: Calcium Acetate (Phoslo Gel Cap) 2,001 mg PO TIDCM [facility] Last Admin: 01/15/20 09:09 Dose: 2,001 mg Documented by: Clotrimazole (Lotrisone) 1 applic TOPICAL BID [facility]; Protocol Last Admin: 01/15/20 09:11 Dose: 1 applic Documented by: Dextrose (D50w Syringe) 0 gm IV X1 PRN; Protocol PRN Reason: Hypoglycemia Doxepin HCl (Sinequan) 25 mg PO QHS PRN PRN Reason: SLEEP Last Admin: 01/14/20 21:28 Dose: 25 mg Documented by: Fluconazole (Fluconazole) 150 mg PO QWEEK@1000 [facility] Stop: 02/10/20 10:01 Furosemide (Lasix) 20 mg PO DAILY [facility] Last Admin: 01/15/20 09:10 Dose: 20 mg Documented by: Glucagon () 1 mg IM .X1 PRN PRN Reason: Hypoglycemia Heparin Sodium (Porcine) (Heparin Na) 5,000 unit SC Q8 [facility] Last Admin: 01/15/20 05:19 Dose: 5,000 unit Documented by: Sodium Chloride () 250 mls @ 15 mls/hr IV .[id number] PRN PRN Reason: Saline Flush Sodium Chloride () 250 mls @ 15 mls/hr IV .[id number] PRN PRN Reason: Additional IVPB Infusion Piperacillin Sod/Tazobactam (Sod 3.375 gm/ Sodium Chloride) 50 mls @ 12.5 mls/hr IV Q12H [facility] Last Infusion: 01/15/20 07:45 Dose: Infused Documented by: Insulin Glargine (Lantus (Bkc)) 10 units SC BID [facility] Last Admin: 01/15/20 09:09 Dose: 10 u Documented by: Insulin Human Lispro (Humalog Kwikpen ([facility])) 0 unit SC ACHS [facility]; Protocol Last Admin: 01/15/20 06:38 Dose: 2 u Documented by: Levothyroxine Sodium (Synthroid) 200 mcg PO DAILY@0600 [facility] Last Admin: 01/15/20 05:20 Dose: 200 mcg Documented by: Metoprolol Tartrate (Lopressor (Beta Nohemy)) 25 mg PO BID [facility] Last Admin: 01/15/20 09:10 Dose: 25 mg Documented by: Nystatin (Mycostatin Powder) 1 applic TOPICAL TID [facility]; Protocol Last Admin: 01/15/20 05:20 Dose: 1 applicatio Documented by: Sodium Chloride () 10 - 40 ml IV UD PRN PRN Reason: SALINE FLUSH Last Admin: 01/15/20 05:20 Dose: 10 ml Documented by: Vilazodone HCl (Viibryd) 40 mg PO QHS [facility] Last Admin: 01/14/20 21:27 Dose: 40 mg Documented by: Medical Necessity - Tobacco Use Smoking Status: Former smoker Tobacco Use: Cigarettes Assessment/Plan All Active Problems (Last Reviewed 01/03/20 @ 08:32 by Danette Marques) Cellulitis (Acute) Severe sepsis (Acute) Preoperative cardiovascular examination (Acute) Vitreous hemorrhage of right eye (Acute) Hypoxia (Resolved) Shortness of breath (Resolved) 1. ESRD HD TTS. Dialysis next on . 2. Abdominal wall cellulitis, panniculitis. Bld cx no growth so far, iv antibx per ID. 3. Sepsis syndrome with leukocytosis improving 4. DM2 primary service mgmt 5. HTN BP low. Decrease metoprolol dose. 6. Severe morbid obesity 7. Hypoxemia CTA negative for PE. Home O2 DW primary service.
--- NOTE | 2020-01-15 11:46 | CASEMGMT ---
SUHA DAVID NOTE: To room to talk w/pt. Pt sitting up in recliner chair, sleepy. Anticipate pt may discharge tomorrow. PT/OT notes have been reviewed. Discussed HHC w/pt again, as she had declined during initial assessment. Pt states she may now want HHC @ discharge but she is not sure yet. She was made aware SUHA DAVID can talk w/pt again tomorrow to re-address and to see if she has made a decision yet. She voices appreciation. Zeke CARPENTERN SUHA CM
--- NOTE | 2020-01-15 12:20 | PN_ITS ---
<Juanita Chapa - Last Filed: 01/15/20 12:34> Patient Problems: Active and Suspected Problems (Last Reviewed 01/03/20 @ 08:32 by Danette Marques) Cellulitis (Acute) Severe sepsis (Acute) Subjective: Patient seen and examined. Abdominal wound improving. Patient denies current symptoms or complaints. No acute events overnight. Oxygen stable on nasal cannula. - Physical Exam Vitals/I&O's: Vital Signs Temp Pulse Resp BP Pulse Ox 98.2 F 75 20 H 96/48 L 93 01/15/20 08:50 01/15/20 11:33 01/15/20 08:50 01/15/20 08:50 01/15/20 11:37 Oxygen Flow Rate (L/min) [At 3 REST on Room Air] Oxygen Flow Rate (L/min) 3.5 Oxygen Delivery Method Nasal Cannula Weight: 356 lb 11.327 oz Body Mass Index (BMI) 64.7 Finger Stick Blood Glucose 140 Intake and Output for Last 24 Hours 01/13/20 01/14/20 01/15/20 23:59 23:59 23:59 Intake Total 900 / 900 940 / 1180 350 / 350 Output Total 2500 / 2500 Balance -1600 / -1600 940 / 1180 350 / 350 General: Alert, Oriented x3, Cooperative HEENT: Atraumatic, PERRLA, EOMI, Normocephalic Neck: Supple, No JVD, Negative Carotid Bruits Lungs: Clear to auscultation, Diminished Cardiovascular: Regular rate, No murmurs Abdomen: Bowel Sounds Present, Soft, Non Tender, Non-Distended, Obese Extremities: No clubbing, No cyanosis, - - Left upper extremity AV fistula Skin: - - Lower abdominal/pannus area with diffuse erythema and warmth Musculoskeletal: No Tenderness to Palpation of Joints or Extremities Neurological: Cranial nerves II-XII grossly intact, Neuro grossly intact Psych/Mental Status: Normal Affect, Appropriate Microbiology Past 72 Hours 01/11/20 15:24 Blood Culture (Wb) - Right Hand Blood Culture - Preliminary No growth in 48 hours. 01/11/20 15:02 Blood Culture (Wb) - Anticubital Right Blood Culture - Preliminary No growth in 48 hours. 01/11/20 15:35 Urine, Clean Catch Urine Culture - Final Streptococcus agalactiae (B) Laboratory Results 01/14/20 12:27: POC Glucose 291 H 01/14/20 15:56: Specimen Type ART, Sample Site R Radial, pH 7.39, Bicarbonate Actual 27.2 H, Total CO2 29, Base Excess 2, O2 Saturation 67 L, ABG pCO2 44.6, ABG pO2 35 L*, Frankie Test Positive, O2 Delivery Device Room Air 01/14/20 16:39: POC Glucose 227 H 01/14/20 19:45: Specimen Type ART, Sample Site R Radial, pH 7.40, Bicarbonate Actual 26.6 H, Total CO2 28, Base Excess 2, O2 Saturation 73 L, O2 % 21, ABG pCO2 43.4, ABG pO2 39 L*, Frankie Test Positive, O2 Delivery Device Room Air 01/14/20 21:22: POC Glucose 247 H 01/15/20 06:36: POC Glucose 167 H Current Medications Acetaminophen (Tylenol) 650 mg PO Q6H PRN PRN PRN Reason: Pain Score 1-10/Temp > 100.7 F Last Admin: 01/15/20 00:16 Dose: 650 mg Documented by: Albuterol Sulfate (Ventolin Aerosols) 2.5 mg INHALATION Q2H PRN PRN PRN Reason: SOB/Wheezing Last Admin: 01/15/20 08:03 Dose: 2.5 mg Documented by: Aspirin (Ecotrin) 81 mg PO DAILY@0800 [facility] Last Admin: 01/15/20 09:09 Dose: 81 mg Documented by: Calcium Acetate (Phoslo Gel Cap) 2,001 mg PO TIDCM [facility] Last Admin: 01/15/20 09:09 Dose: 2,001 mg Documented by: Clotrimazole (Lotrisone) 1 applic TOPICAL BID [facility]; Protocol Last Admin: 01/15/20 09:11 Dose: 1 applic Documented by: Dextrose (D50w Syringe) 0 gm IV X1 PRN; Protocol PRN Reason: Hypoglycemia Doxepin HCl (Sinequan) 25 mg PO QHS PRN PRN Reason: SLEEP Last Admin: 01/14/20 21:28 Dose: 25 mg Documented by: Fluconazole (Fluconazole) 150 mg PO QWEEK@1000 [facility] Stop: 02/10/20 10:01 Furosemide (Lasix) 40 mg PO DAILY [facility] Glucagon () 1 mg IM .X1 PRN PRN Reason: Hypoglycemia Heparin Sodium (Porcine) (Heparin Na) 5,000 unit SC Q8 [facility] Last Admin: 01/15/20 05:19 Dose: 5,000 unit Documented by: Sodium Chloride () 250 mls @ 15 mls/hr IV .[id number] PRN PRN Reason: Saline Flush Sodium Chloride () 250 mls @ 15 mls/hr IV .[id number] PRN PRN Reason: Additional IVPB Infusion Piperacillin Sod/Tazobactam (Sod 3.375 gm/ Sodium Chloride) 50 mls @ 12.5 mls/hr IV Q12H [facility] Last Infusion: 01/15/20 07:45 Dose: Infused Documented by: Insulin Glargine (Lantus ([facility])) 10 units SC BID [facility] Last Admin: 01/15/20 09:09 Dose: 10 u Documented by: Insulin Human Lispro (Humalog Kwikpen ([facility])) 0 unit SC ACHS [facility]; Protocol Last Admin: 01/15/20 06:38 Dose: 2 u Documented by: Levothyroxine Sodium (Synthroid) 200 mcg PO DAILY@0600 [facility] Last Admin: 01/15/20 05:20 Dose: 200 mcg Documented by: Metoprolol Tartrate (Lopressor (Beta Nohemy)) 12.5 mg PO BID [facility] Nystatin (Mycostatin Powder) 1 applic TOPICAL TID [facility]; Protocol Last Admin: 01/15/20 05:20 Dose: 1 applicatio Documented by: Sodium Chloride () 10 - 40 ml IV UD PRN PRN Reason: SALINE FLUSH Last Admin: 01/15/20 05:20 Dose: 10 ml Documented by: Vilazodone HCl (Viibryd) 40 mg PO QHS [facility] Last Admin: 01/14/20 21:27 Dose: 40 mg Documented by: Medical Necessity - Tobacco Use Smoking Status: Former smoker Tobacco Use: Cigarettes Assessment/Plan All Active Problems (Last Reviewed 01/03/20 @ 08:32 by Danette Marques) Cellulitis (Acute) Severe sepsis (Acute) Preoperative cardiovascular examination (Acute) Vitreous hemorrhage of right eye (Acute) Hypoxia (Resolved) Shortness of breath (Resolved) 1. Severe sepsis secondary to lower abdominal wall cellulitis/panniculitis- infectious disease following. Blood cultures show no growth. Transition IV Zosyn to oral doxy and augmentin X1 week. Suspect component of candidal intertrigo as well. Continue fluconazole 150 mg once weekly for 4 weeks. Keep area clean and dry and use barrier for moisture absorption. 2. Strep agalactiae bacteruria-suspect colonization. On antibiotics per above. 3. Hypoxia-unclear etiology. Chest x-ray on admission normal. CTA shows no evidence of PE, no infiltrates, atelectasis. Patient underwent home oxygen testing and noted to be 68% on room air. Oxygen stable on 3 L nasal cannula. Pulmonary medicine consulted as unclear etiology for significant hypoxia. Echocardiogram with bubble study completed this morning, results pending. 4. End-stage renal disease on hemodialysis-nephrology consulted. Continue dialysis regimen. 5. Hypertension-stable, continue metoprolol, Lasix. Metoprolol reduced to 12.5 mg twice daily due to hypotension. 6. Type 2 diabetes [id number] with sliding scale insulin. Continue home insulin regimen. 7. History of TIAs-on aspirin. 8. Hypothyroidism-continue Synthroid regimen. 9. Depression-on Viibryd. 10. Morbid obesity- encouraged diet and lifestyle modifications. DVT prophylaxis- Heparin sc/SCDs This patient was seen by ADITI Higuera under the supervision of Dr. Alanis. <Lissa Alansi - Last Filed: 01/15/20 14:48> - Physical Exam Vitals/I&O's: Vital Signs Temp Pulse Resp BP Pulse Ox 98.4 F 78 18 126/65 H 95 01/15/20 14:09 01/15/20 14:09 01/15/20 14:09 01/15/20 14:09 01/15/20 14:09 Oxygen Flow Rate (L/min) [At 3 REST on Room Air] Oxygen Flow Rate (L/min) 3 Oxygen Delivery Method Nasal Cannula Weight: 161.8 kg Body Mass Index (BMI) 64.7 Finger Stick Blood Glucose 140 Intake and Output for Last 24 Hours 01/13/20 01/14/20 01/15/20 23:59 23:59 23:59 Intake Total 900 / 900 940 / 1180 710 / 710 Output Total 2500 / 2500 Balance -1600 / -1600 940 / 1180 710 / 710 Microbiology Past 72 Hours 01/11/20 15:24 Blood Culture (Wb) - Right Hand Blood Culture - Preliminary No growth in 48 hours. 01/11/20 15:02 Blood Culture (Wb) - Anticubital Right Blood Culture - Preliminary No growth in 48 hours. 01/11/20 15:35 Urine, Clean Catch Urine Culture - Final Streptococcus agalactiae (B) Laboratory Results 01/14/20 15:56: Specimen Type ART, Sample Site R Radial, pH 7.39, Bicarbonate Actual 27.2 H, Total CO2 29, Base Excess 2, O2 Saturation 67 L, ABG pCO2 44.6, ABG pO2 35 L*, Frankie Test Positive, O2 Delivery Device Room Air 01/14/20 16:39: POC Glucose 227 H 01/14/20 19:45: Specimen Type ART, Sample Site R Radial, pH 7.40, Bicarbonate Actual 26.6 H, Total CO2 28, Base Excess 2, O2 Saturation 73 L, O2 % 21, ABG pCO2 43.4, ABG pO2 39 L*, Frankie Test Positive, O2 Delivery Device Room Air 01/14/20 21:22: POC Glucose 247 H 01/15/20 06:36: POC Glucose 167 H 01/15/20 12:32: POC Glucose 276 H Current Medications Acetaminophen (Tylenol) 650 mg PO Q6H PRN PRN PRN Reason: Pain Score 1-10/Temp > 100.7 F Last Admin: 01/15/20 00:16 Dose: 650 mg Documented by: Albuterol Sulfate (Ventolin Aerosols) 2.5 mg INHALATION Q2H PRN PRN PRN Reason: SOB/Wheezing Last Admin: 01/15/20 08:03 Dose: 2.5 mg Documented by: Amoxicillin/Clavulanate Potassium (Augmentin Tablet) 500 mg PO Q24H [facility] Stop: 01/20/20 13:01 Last Admin: 01/15/20 14:24 Dose: 500 mg Documented by: Aspirin (Ecotrin) 81 mg PO DAILY@0800 [facility] Last Admin: 01/15/20 09:09 Dose: 81 mg Documented by: Calcium Acetate (Phoslo Gel Cap) 2,001 mg PO TIDCM [facility] Last Admin: 01/15/20 12:37 Dose: 2,001 mg Documented by: Clotrimazole (Lotrisone) 1 applic TOPICAL BID [facility]; Protocol Last Admin: 01/15/20 09:11 Dose: 1 applic Documented by: Dextrose (D50w Syringe) 0 gm IV X1 PRN; Protocol PRN Reason: Hypoglycemia Doxepin HCl (Sinequan) 25 mg PO QHS PRN PRN Reason: SLEEP Last Admin: 01/14/20 21:28 Dose: 25 mg Documented by: Doxycycline Monohydrate (Doxycycline) 100 mg PO BID [facility] Stop: 01/20/20 22:01 Fluconazole (Fluconazole) 150 mg PO QWEEK@1000 [facility] Stop: 02/10/20 10:01 Furosemide (Lasix) 40 mg PO DAILY [facility] Glucagon () 1 mg IM .X1 PRN PRN Reason: Hypoglycemia Heparin Sodium (Porcine) (Heparin Na) 5,000 unit SC Q8 [facility] Last Admin: 01/15/20 14:25 Dose: 5,000 unit Documented by: Sodium Chloride () 250 mls @ 15 mls/hr IV .[id number] PRN PRN Reason: Saline Flush Sodium Chloride () 250 mls @ 15 mls/hr IV .[id number] PRN PRN Reason: Additional IVPB Infusion Insulin Glargine (Lantus ([facility])) 10 units SC BID [facility] Last Admin: 01/15/20 09:09 Dose: 10 u Documented by: Insulin Human Lispro (Humalog Kwikpen ([facility])) 0 unit SC ACHS [facility]; Protocol Last Admin: 01/15/20 12:35 Dose: 6 u Documented by: Levothyroxine Sodium (Synthroid) 200 mcg PO DAILY@0600 [facility] Last Admin: 01/15/20 05:20 Dose: 200 mcg Documented by: Metoprolol Tartrate (Lopressor (Beta Nohemy)) 12.5 mg PO BID [facility] Nystatin (Mycostatin Powder) 1 applic TOPICAL TID [facility]; Protocol Last Admin: 01/15/20 14:25 Dose: 1 applicatio Documented by: Sodium Chloride () 10 - 40 ml IV UD PRN PRN Reason: SALINE FLUSH Last Admin: 01/15/20 05:20 Dose: 10 ml Documented by: Vilazodone HCl (Viibryd) 40 mg PO QHS [facility] Last Admin: 01/14/20 21:27 Dose: 40 mg Documented by: Assessment/Plan This patient was seen in conjunction with Juanita Chapa NP. I have independently interviewed and examined the patient and reviewed pertinent historical, laboratory, and other data. Please refer to her note for patient's presentation, findings, and recommendations. Patient was seen and examined. Denied any new complaints. Patient was found asleep on her back, on 3 L of oxygen, snoring. Suspect patient has JEROD/OHS. No acute events overnight. Vitals were reviewed -stable Physical Exam: Gen: Super morbidly obese, not pale, not jaundiced, alert oriented x3 CVS:HS I +II, regular, no murmurs RESP: CTA GI: BS present and normal, nontender, no palpable organs EXT:No edema Labs reviewed: ASSESSMENT: 1. Acute hypoxia 2. Severe sepsis secondary to lower andominal wall cellulitis/pannuculitis 3. ESRD on HD 4. Hypertension 5. Type 2 DM 6. H/o TIA 7. Hypothyroidism 8. Super morbidly obese, 9. Anxiety/disorder Meds reviewed Plan: Continue on Augmentin, nystatin body Pulmo consult Walking pulse oximetry Patient will need sleep study in the outpatient Inpatient E&M: [id number] [facility] Hosp L2
[2020-01-15 12:41] LABS: Bedside Glucose 276 mg/dL (70-110)
[2020-01-15] MEDS: Amox/Clavulanate 500 MG Tablet PO (14:24)
--- NOTE | 2020-01-15 14:42 | PCM.PN.ID ---
Patient Problems: Active and Suspected Problems (Last Reviewed 01/03/20 @ 08:32 by Danette Marques) Cellulitis (Acute) Severe sepsis (Acute) Subjective: Feeling better, abd much less sore and red. No fever. - Physical Exam Vitals/I&O's: Vital Signs Temp Pulse Resp BP Pulse Ox 98.4 F 78 18 126/65 H 95 01/15/20 14:09 01/15/20 14:09 01/15/20 14:09 01/15/20 14:09 01/15/20 14:09 Oxygen Flow Rate (L/min) [At 3 REST on Room Air] Oxygen Flow Rate (L/min) 3 Oxygen Delivery Method Nasal Cannula Weight: 161.8 kg Body Mass Index (BMI) 64.7 Finger Stick Blood Glucose 140 Intake and Output for Last 24 Hours 01/13/20 01/14/20 01/15/20 23:59 23:59 23:59 Intake Total 900 / 900 940 / 1180 710 / 710 Output Total 2500 / 2500 Balance -1600 / -1600 940 / 1180 710 / 710 General: Alert, Cooperative, No apparent distress Lungs: Clear to auscultation, Normal air movement Cardiovascular: Regular rate, Regular Rhythm Abdomen: Soft, Non Tender, Obese Skin: Rash Present - mild erythema on abd Microbiology Past 72 Hours 01/11/20 15:24 Blood Culture (Wb) - Right Hand Blood Culture - Preliminary No growth in 48 hours. 01/11/20 15:02 Blood Culture (Wb) - Anticubital Right Blood Culture - Preliminary No growth in 48 hours. 01/11/20 15:35 Urine, Clean Catch Urine Culture - Final Streptococcus agalactiae (B) Laboratory Results 01/14/20 15:56: Specimen Type ART, Sample Site R Radial, pH 7.39, Bicarbonate Actual 27.2 H, Total CO2 29, Base Excess 2, O2 Saturation 67 L, ABG pCO2 44.6, ABG pO2 35 L*, Frankie Test Positive, O2 Delivery Device Room Air 01/14/20 16:39: POC Glucose 227 H 01/14/20 19:45: Specimen Type ART, Sample Site R Radial, pH 7.40, Bicarbonate Actual 26.6 H, Total CO2 28, Base Excess 2, O2 Saturation 73 L, O2 % 21, ABG pCO2 43.4, ABG pO2 39 L*, Frankie Test Positive, O2 Delivery Device Room Air 01/14/20 21:22: POC Glucose 247 H 01/15/20 06:36: POC Glucose 167 H 01/15/20 12:32: POC Glucose 276 H Current Medications Acetaminophen (Tylenol) 650 mg PO Q6H PRN PRN PRN Reason: Pain Score 1-10/Temp > 100.7 F Last Admin: 01/15/20 00:16 Dose: 650 mg Documented by: Albuterol Sulfate (Ventolin Aerosols) 2.5 mg INHALATION Q2H PRN PRN PRN Reason: SOB/Wheezing Last Admin: 01/15/20 08:03 Dose: 2.5 mg Documented by: Amoxicillin/Clavulanate Potassium (Augmentin Tablet) 500 mg PO Q24H [facility] Stop: 01/20/20 13:01 Last Admin: 01/15/20 14:24 Dose: 500 mg Documented by: Aspirin (Ecotrin) 81 mg PO DAILY@0800 [facility] Last Admin: 01/15/20 09:09 Dose: 81 mg Documented by: Calcium Acetate (Phoslo Gel Cap) 2,001 mg PO TIDCM [facility] Last Admin: 01/15/20 12:37 Dose: 2,001 mg Documented by: Clotrimazole (Lotrisone) 1 applic TOPICAL BID [facility]; Protocol Last Admin: 01/15/20 09:11 Dose: 1 applic Documented by: Dextrose (D50w Syringe) 0 gm IV X1 PRN; Protocol PRN Reason: Hypoglycemia Doxepin HCl (Sinequan) 25 mg PO QHS PRN PRN Reason: SLEEP Last Admin: 01/14/20 21:28 Dose: 25 mg Documented by: Doxycycline Monohydrate (Doxycycline) 100 mg PO BID [facility] Stop: 01/20/20 22:01 Fluconazole (Fluconazole) 150 mg PO QWEEK@1000 [facility] Stop: 02/10/20 10:01 Furosemide (Lasix) 40 mg PO DAILY [facility] Glucagon () 1 mg IM .X1 PRN PRN Reason: Hypoglycemia Heparin Sodium (Porcine) (Heparin Na) 5,000 unit SC Q8 [facility] Last Admin: 01/15/20 14:25 Dose: 5,000 unit Documented by: Sodium Chloride () 250 mls @ 15 mls/hr IV .[id number] PRN PRN Reason: Saline Flush Sodium Chloride () 250 mls @ 15 mls/hr IV .[id number] PRN PRN Reason: Additional IVPB Infusion Insulin Glargine (Lantus ([facility])) 10 units SC BID [facility] Last Admin: 01/15/20 09:09 Dose: 10 u Documented by: Insulin Human Lispro (Humalog Kwikpen ([facility])) 0 unit SC ACHS [facility]; Protocol Last Admin: 01/15/20 12:35 Dose: 6 u Documented by: Levothyroxine Sodium (Synthroid) 200 mcg PO DAILY@0600 [facility] Last Admin: 01/15/20 05:20 Dose: 200 mcg Documented by: Metoprolol Tartrate (Lopressor (Beta Nohemy)) 12.5 mg PO BID [facility] Nystatin (Mycostatin Powder) 1 applic TOPICAL TID [facility]; Protocol Last Admin: 01/15/20 14:25 Dose: 1 applicatio Documented by: Sodium Chloride () 10 - 40 ml IV UD PRN PRN Reason: SALINE FLUSH Last Admin: 01/15/20 05:20 Dose: 10 ml Documented by: Vilazodone HCl (Viibryd) 40 mg PO QHS [facility] Last Admin: 01/14/20 21:27 Dose: 40 mg Documented by: Medical Necessity - Tobacco Use Smoking Status: Former smoker Tobacco Use: Cigarettes Route of nutrition/ use of supplements: [] Nutritional Intake: [] IV Site: [] Freeman Catheter: [] - Assessment/Plan Antibiotics: [] Assessment/Plan: [] Active and Suspected Problems (Last Reviewed 01/03/20 @ 08:32 by Danette Marques) Cellulitis (Acute) Severe sepsis (Acute) severe sepsis due to abd panniculitis with h/o ESRD - Much improved. Plan is be for discharge on 5 more days of doxy, fluc, and augmentin 500mg qday Will follow
--- NOTE | 2020-01-15 15:18 | PCM.PN.PUL ---
Patient Problems: Active and Suspected Problems (Last Reviewed 01/03/20 @ 08:32 by Danette Marques) Cellulitis (Acute) Severe sepsis (Acute) Subjective: Patient did okay overnight. Asked to reevaluate the patient secondary to hypoxia. Patient was found to be saturating in the 70s yesterday on room air. Patient reports that she feels subjectively unchanged compared to previous. On review of history, patient does report that she was placed on supplemental oxygen in 2016, but did not need it anymore. Patient does report that they put her on oxygen at hemodialysis sessions for 4 hours. is at the bedside and states that she does have snoring and witnessed apneas. Patient does not routinely use supplemental oxygen at home. Objective: Walking oximetry from 2016 showed no supplemental oxygen at rest, but 3 L nasal cannula with exertion. Recent echocardiogram did show some mitral stenosis with no mention of pulmonary artery pressures. Patient has never had a pulmonary function test. - Physical Exam Vitals/I&O's: Vital Signs Temp Pulse Resp BP Pulse Ox 36.9 C 78 18 126/65 H 95 01/15/20 14:09 01/15/20 14:09 01/15/20 14:09 01/15/20 14:09 01/15/20 14:09 Oxygen Flow Rate (L/min) [At 3 REST on Room Air] Oxygen Flow Rate (L/min) 3 Oxygen Delivery Method Nasal Cannula Weight: 161.8 kg Body Mass Index (BMI) 64.7 Finger Stick Blood Glucose 140 Intake and Output for Last 24 Hours 01/13/20 01/14/20 01/15/20 23:59 23:59 23:59 Intake Total 900 / 900 940 / 1180 710 / 710 Output Total 2500 / 2500 Balance -1600 / -1600 940 / 1180 710 / 710 General: Alert, Oriented x3, Cooperative, No apparent distress HEENT: Atraumatic, PERRLA, EOMI, Normocephalic, - - No scleral icterus or injection noted. Oral: Moist Mucosa, No Gingival or Mucosal Lesions/ Ulcerations Neck: Supple, No Nodes, Trachea Midline, - - Unable to assess JVD secondary to body habitus Lungs: No rhonchi, No wheeze, No rales, Diminished, - - Some cough with deep inhalation Cardiovascular: Regular rate, Regular Rhythm, Normal S1, Normal S2, No murmurs, No rub noted, No Gallop, - - Distant heart sounds secondary to body habitus Abdomen: Bowel Sounds Present, Soft, Non Tender, Non-Distended, Obese Extremities: No clubbing, No cyanosis, Edema Skin: - - Venous stasis changes of the lower extremities Musculoskeletal: No Tenderness to Palpation of Joints or Extremities Lymphatic: No Cervical, Supraclavicular, or Inguinal Adenopathy Neurological: Cranial nerves II-XII grossly intact, Neuro grossly intact, Motor Exam 5/5 strength throughout Psych/Mental Status: Alert and oriented to time, place, person, mood and affect Microbiology Past 72 Hours 01/11/20 15:24 Blood Culture (Wb) - Right Hand Blood Culture - Preliminary No growth in 48 hours. 01/11/20 15:02 Blood Culture (Wb) - Anticubital Right Blood Culture - Preliminary No growth in 48 hours. 01/11/20 15:35 Urine, Clean Catch Urine Culture - Final Streptococcus agalactiae (B) Laboratory Results 01/14/20 15:56: Specimen Type ART, Sample Site R Radial, pH 7.39, Bicarbonate Actual 27.2 H, Total CO2 29, Base Excess 2, O2 Saturation 67 L, ABG pCO2 44.6, ABG pO2 35 L*, Frankie Test Positive, O2 Delivery Device Room Air 01/14/20 16:39: POC Glucose 227 H 01/14/20 19:45: Specimen Type ART, Sample Site R Radial, pH 7.40, Bicarbonate Actual 26.6 H, Total CO2 28, Base Excess 2, O2 Saturation 73 L, O2 % 21, ABG pCO2 43.4, ABG pO2 39 L*, Frankie Test Positive, O2 Delivery Device Room Air 01/14/20 21:22: POC Glucose 247 H 01/15/20 06:36: POC Glucose 167 H 01/15/20 12:32: POC Glucose 276 H Current Medications Acetaminophen (Tylenol) 650 mg PO Q6H PRN PRN PRN Reason: Pain Score 1-10/Temp > 100.7 F Last Admin: 01/15/20 00:16 Dose: 650 mg Documented by: Albuterol Sulfate (Ventolin Aerosols) 2.5 mg INHALATION Q2H PRN PRN PRN Reason: SOB/Wheezing Last Admin: 01/15/20 08:03 Dose: 2.5 mg Documented by: Amoxicillin/Clavulanate Potassium (Augmentin Tablet) 500 mg PO Q24H [facility] Stop: 01/20/20 13:01 Last Admin: 01/15/20 14:24 Dose: 500 mg Documented by: Aspirin (Ecotrin) 81 mg PO DAILY@0800 [facility] Last Admin: 01/15/20 09:09 Dose: 81 mg Documented by: Calcium Acetate (Phoslo Gel Cap) 2,001 mg PO TIDCM [facility] Last Admin: 01/15/20 12:37 Dose: 2,001 mg Documented by: Clotrimazole (Lotrisone) 1 applic TOPICAL BID [facility]; Protocol Last Admin: 01/15/20 09:11 Dose: 1 applic Documented by: Dextrose (D50w Syringe) 0 gm IV X1 PRN; Protocol PRN Reason: Hypoglycemia Doxepin HCl (Sinequan) 25 mg PO QHS PRN PRN Reason: SLEEP Last Admin: 01/14/20 21:28 Dose: 25 mg Documented by: Doxycycline Monohydrate (Doxycycline) 100 mg PO BID [facility] Stop: 01/20/20 22:01 Fluconazole (Fluconazole) 150 mg PO QWEEK@1000 [facility] Stop: 02/10/20 10:01 Furosemide (Lasix) 40 mg PO DAILY [facility] Glucagon () 1 mg IM .X1 PRN PRN Reason: Hypoglycemia Heparin Sodium (Porcine) (Heparin Na) 5,000 unit SC Q8 [facility] Last Admin: 01/15/20 14:25 Dose: 5,000 unit Documented by: Sodium Chloride () 250 mls @ 15 mls/hr IV .[id number] PRN PRN Reason: Saline Flush Sodium Chloride () 250 mls @ 15 mls/hr IV .[id number] PRN PRN Reason: Additional IVPB Infusion Insulin Glargine (Lantus (Bkc)) 10 units SC BID [facility] Last Admin: 01/15/20 09:09 Dose: 10 u Documented by: Insulin Human Lispro (Humalog Kwikpen (Bkc)) 0 unit SC ACHS [facility]; Protocol Last Admin: 01/15/20 12:35 Dose: 6 u Documented by: Levothyroxine Sodium (Synthroid) 200 mcg PO DAILY@0600 [facility] Last Admin: 01/15/20 05:20 Dose: 200 mcg Documented by: Metoprolol Tartrate (Lopressor (Beta Nohemy)) 12.5 mg PO BID [facility] Nystatin (Mycostatin Powder) 1 applic TOPICAL TID [facility]; Protocol Last Admin: 01/15/20 14:25 Dose: 1 applicatio Documented by: Sodium Chloride () 10 - 40 ml IV UD PRN PRN Reason: SALINE FLUSH Last Admin: 01/15/20 05:20 Dose: 10 ml Documented by: Vilazodone HCl (Viibryd) 40 mg PO QHS [facility] Last Admin: 01/14/20 21:27 Dose: 40 mg Documented by: Medical Necessity - Tobacco Use Smoking Status: Former smoker Tobacco Use: Cigarettes Assessment/Plan All Active Problems (Last Reviewed 01/03/20 @ 08:32 by Danette Marques) Cellulitis (Acute) Severe sepsis (Acute) Preoperative cardiovascular examination (Acute) Vitreous hemorrhage of right eye (Acute) Hypoxia (Resolved) Shortness of breath (Resolved) RECOMMENDATIONS: 1. Continue antimicrobials per infectious diseases recommendations. 2. Hemodialysis per nephrology recommendations. 3. Wean supplemental oxygen as tolerated. 4. Encourage incentive spirometer use and mobilize patient as tolerated. 5. Recommend outpatient pulmonary follow-up so that a baseline diagnostic polysomnogram can be completed. 6. The patient is medically stable for transfer out of the intensive care unit. Will sign off from a critical care perspective. IMPRESSIONS: 1. Severe sepsis Appears to be secondary to a component of panniculitis and bilateral lower extremity cellulitis. The patient did receive IV fluid resuscitation and has remained hemodynamically stable. Infectious disease is currently following. Patient appears to be improving on doxycycline. 2. End-stage renal disease on hemodialysis Continue hemodialysis per nephrology recommendations. 3. Super morbid obesity/diabetes mellitus/mitral stenosis/hypertension/hyperlipidemia/hypothyroidism Complicates care, management, recovery and prognosis. The patient is at high risk for underlying sleep disordered breathing. Outpatient PSG would be appropriate. In the interim, empiric BiPAP therapy can be offered to the patient on a nightly basis. 4. Hypoxia Clinical suspicion for pulmonary hypertension and diastolic congestive heart failure leading to hypoxia. Patient required supplemental oxygen in 2016, but this was discontinued for unclear reasons. Patient has multiple reasons for elevated pulmonary artery pressures including noncompliance with supplemental oxygen, untreated sleep apnea, hypertension and morbid obesity. Patient also has fluid issues with chronic kidney disease, but does not appear to be significantly overloaded at this time. Patient would benefit from a right heart catheterization, but this does not need to be completed as an inpatient. Patient should follow-up as an outpatient for evaluation of JEROD with a PSG and COPD with a pulmonary function test. Okay to discharge patient on supplemental oxygen to keep saturations greater than 90% Inpatient E&M: [id number] [facility] L3
[2020-01-15 16:41] LABS: Bedside Glucose 270 mg/dL (70-110)
[2020-01-15] MEDS: Metoprolol Tartrate 25 MG Tablet 12.5 MG PO (22:41)
[2020-01-15] MEDS: VILAZODONE HYDROCHLORIDE 10 MG TABLET 40 MG PO (22:41)
[2020-01-15] MEDS: Doxycycline 100 MG CAPSULE PO (22:43)
[2020-01-15 22:55] LABS: Bedside Glucose 300 mg/dL (70-110)
[2020-01-16] VITALS (7 sets, daily range): BP systolic 126–138; BP diastolic 60–75; PULSE 75–85; RESP 20; TEMP 37; O2SAT 92–97
[2020-01-16] MEDS: Heparin Injection (Vial) 5,000 UNIT/ML VIAL 5000 UNIT SC (06:51)
[2020-01-16] MEDS: Levothyroxine 100 MCG Tablet 200 MCG PO (06:53)
[2020-01-16] MEDS: Nystatin Powder 15gm Bottle 1 APPLIC TOPICAL (06:53)
[2020-01-16] MEDS: Insulin Lispro 100 UNIT/ML INSULN.PEN SC ×2 (06:56→11:53)
[2020-01-16 06:59] LABS: Hematocrit 33.9 % (37-47); Hemoglobin 10.6 g/dL (12.0-15.0); Mean Corp Hgb Conc 31.3 g/dL (32-36); Mean Corpuscular Hgb 31.1 pg (27.0-32.0); Mean Corpuscular Volume 99.4 fL (81-99); Mean Platelet Vol. 9.9 fl (6.2-12.0); Platelet Count 252 K/mm3 (150-450); RBC Distribution Width CV 14.9 % (11.6-14.6); RBC Distribution Width SD 54.7 fl (35.1-43.9); Red Blood Count 3.41 M/mm3 (4.2-5.4); White Blood Count 7.2 K/mm3 (4.4-11.0)
[2020-01-16 07:05] LABS: Bedside Glucose 182 mg/dL (70-110)
[2020-01-16 07:15] LABS: Anion Gap 9 (5-15); BUN 46 mg/dL (7-18); BUN/Creat Ratio 6.6 RATIO (10-20); Calcium,Total 8.6 mg/dL (8.5-10.1); Chloride 99 mmol/L (98-107); Creatinine, Serum 7.01 mg/dL (0.55-1.02); EST Glomerular Filtration Rate 6 mL/min (>60); Est Glom Filt Rate - Afr Amer 8 mL/min (>60); Estimated Creatinine Clearance 6.16 ml/min; Glucose 169 mg/dL (74-106); Potassium 4.1 mmol/L (3.5-5.1); Sodium Level 138 mmol/L (136-145)
[2020-01-16] MEDS: Calcium Acetate 667 MG Capsule 2001 MG PO ×2 (08:53→11:54)
[2020-01-16] MEDS: Furosemide 40 MG Tablet PO (08:53)
[2020-01-16] MEDS: Doxycycline 100 MG CAPSULE PO (08:53)
[2020-01-16] MEDS: Metoprolol Tartrate 25 MG Tablet 12.5 MG PO (08:53)
[2020-01-16] MEDS: Aspirin E.C. 81 MG Tablet PO (08:53)
[2020-01-16] MEDS: Clotrimazole/Betamethasone 1 Tube 1 APPLIC TOPICAL (08:57)
--- NOTE | 2020-01-16 09:59 | CASEMGMT ---
Addendum entered by Kendra Mclean 01/16/20 11:43: Pt's at bedside and pt/ are agreeable to HHC at this time and they state they would like [facility] at this time for PT/OT. Pt states that he changes pt dressing and states no need for SN at this time. Message left with Phuong at [facility] at this time in regards to referral and order placed in [facility] for HHC PT/OT at this time. Call back from Phuong at [facility] and she states they can take pt at this time. Pt/ updated at this time, voice understanding. [place]vised [place] [facility] [place] pt off at dialysis so that he can get home oxygen set up while she is there, voices understanding. Mickie at [facility] [place] all, voices understanding and pt's provided with number to call to set up oxygen, voices understanding. John BORDEN CM Original Note: Per Marich[facility] ELIAS, pt to be discharged today and today is her dialysis day, TTS at 1120. Call to Bridger at [facility] and he states that as long as they can get pt running by 1300 then she can have dialysis at OP center today. Marich[facility] ELIAS aware, voices understanding. Pt qualifies for 4liters continuous home oxygen at this time and states she would like [employer] for DME company at this time. Referral faxed to [employer] at this time. This RN CM to room to update pt on O2 and dialysis, voices understanding, and to check on HHC decision. Pt states she was waiting to discuss HHC with her . This RN CM assisted pt in placing call to at this time and advised pt to have to come pick her up as she will need to get to dialysis, voices understanding. This RN CM to check back in regards to HHC decision once here or pt gets off phone with him. John BORDEN CM
--- NOTE | 2020-01-16 10:04 | DCINST_ITS ---
- Discharge Diagnoses Current Active Problems: Current Active and Chronic Problems (Last Reviewed 01/03/20 @ 08:32 by Danette Marques) Cellulitis (Acute) Severe sepsis (Acute) You will use the following diet at home:: Calorie/Carbohydrate Controlled (specify 1200, 1400, etc), Renal (restricted protein/sodium) Discharge Activity: Return to Normal Activity Call your doctor if you observe: Shortness of breath, Dizziness, Fainting spells, Chest pain Allergies/Adverse Reactions: Allergies No Known Allergies Allergy (Verified 01/11/20 14:25) Medications to take at Discharge Vilazodone Hydrochloride [Viibryd] 40 mg PO QHS 05/29/14 Aspirin E.C. [Ecotrin] 81 mg PO DAILY@0800 #30 tab 06/01/14 dulaglutide 1.5 mg/0.5 mL subcutaneous pen injector 1.5 mg SC TH 04/11/19 levothyroxine 200 mcg tablet 200 mcg PO DAILY 04/11/19 B complex-vitamin C-folic acid 0.8 mg tablet 1 tab PO DAILY 12/13/19 calcium acetate 667 mg tablet 2,001 mg PO TID 12/13/19 cholecalciferol (vitamin D3) 25 mcg (1,000 unit) tablet 25 mcg PO DAILY 12/13/19 doxepin 25 mg capsule 25 mg PO QHS PRN 12/13/19 insulin regular hum U-500 conc 500 unit/mL subcutaneous soln 170 unit SC BID ml 12/13/19 metoprolol tartrate 50 mg tablet 25 mg PO BID tab 12/13/19 clotrimazole-betamethasone 1 %-0.05 % topical cream 1 applic TOPICAL BID 14 Days #45 g 01/03/20 diphenoxylate-atropine 2.5 mg-0.025 mg tablet 1 tab PO QHS PRN 01/03/20 Amox/Clavulanate Tablet [Augmentin Tablet] 500 mg PO Q24H #5 tab 01/16/20 Doxycycline 100 mg PO BID #10 cap 01/16/20 Fluconazole 150 mg PO QWEEK@1000 #3 tab 01/16/20 Furosemide [Lasix] 40 mg PO DAILY #30 tab 01/16/20 The following prescriptions were given: Amox/Clavulanate Tablet [Augmentin Tablet] 500 mg PO Q24H #5 tab Transmission Status: Pending to [facility] Doxycycline 100 mg PO BID #10 cap Transmission Status: Pending to [facility] Fluconazole 150 mg PO QWEEK@1000 #3 tab Transmission Status: Pending to [facility] Furosemide [Lasix] 40 mg PO DAILY #30 tab Transmission Status: Pending to [facility] Primary Care Physician: Emeka Kramer Chi, MD [Primary Care Provider] - Please follow up with your Primary Care Physician in: 1 Week Test Results: Test results from this visit will be discussed in further detail at your follow- up appointment, if applicable. Please Follow Up With: Sheila Galvan NP-C When: As scheduled 02/06/2020 Please Follow Up With: Rocio Lambert DO When: As scheduled for dialysis and follow up Proposed Discharge Date: 01/16/20
--- NOTE | 2020-01-16 11:52 | PHA.DC.MC ---
Pharmacy Service has performed discharge medication reconciliation and counseling for this patient. The patient was counseled on the following discharge medications and changes in medications for homegoing were reviewed. 1. FLUCONAZOLE 2. AUGMENTIN 3. DOXYCYCLINE 4. LASIX The Reason for Use, instructions for use, and potential side effects were reviewed for all new medications. The patient's questions regarding all of their medications were answered. The patient demonstrated some understanding but would benefit from further education and reinforcement. Home Medications Vilazodone Hydrochloride [Viibryd] 40 mg PO QHS 05/29/14 Aspirin E.C. [Ecotrin] 81 mg PO DAILY@0800 #30 tab 06/01/14 dulaglutide 1.5 mg/0.5 mL subcutaneous pen injector 1.5 mg SC TH 04/11/19 levothyroxine 200 mcg tablet 200 mcg PO DAILY 04/11/19 B complex-vitamin C-folic acid 0.8 mg tablet 1 tab PO DAILY 12/13/19 calcium acetate 667 mg tablet 2,001 mg PO TID 12/13/19 cholecalciferol (vitamin D3) 25 mcg (1,000 unit) tablet 25 mcg PO DAILY 12/13/19 doxepin 25 mg capsule 25 mg PO QHS PRN 12/13/19 insulin regular hum U-500 conc 500 unit/mL subcutaneous soln 170 unit SC BID ml 12/13/19 metoprolol tartrate 50 mg tablet 25 mg PO BID tab 12/13/19 clotrimazole-betamethasone 1 %-0.05 % topical cream 1 applic TOPICAL BID 14 Days #45 g 01/03/20 diphenoxylate-atropine 2.5 mg-0.025 mg tablet 1 tab PO QHS PRN 01/03/20 Amox/Clavulanate Tablet [Augmentin Tablet] 500 mg PO Q24H #5 tab 01/16/20 Doxycycline 100 mg PO BID #10 cap 01/16/20 Fluconazole 150 mg PO QWEEK@1000 #3 tab 01/16/20 Furosemide [Lasix] 40 mg PO DAILY #30 tab 01/16/20 The patient's discharge medication list was reviewed for discrepancies and discrepancies were resolved.
[2020-01-16 12:01] LABS: Bedside Glucose 284 mg/dL (70-110)
--- NOTE | 2020-01-16 12:12 | PCM.DC.SUM ---
<Juanita Chapa - Last Filed: 01/16/20 12:19> Discharge Date and Diagnosis Date of Admission: 01/11/20 Date of Discharge: 01/16/20 - Primary Discharge Diagnosis Acute Problems: Active Problems (Last Reviewed 01/03/20 @ 08:32 by Danette Marques) 1. Severe sepsis secondary to lower abdominal wall cellulitis/panniculitis 2. Strep agalactiae bacteruria-suspect colonization. 3. Hypoxia-presumed chronic secondary to pulmonary hypertension, morbid obesity and suspected untreated sleep apnea. PE, CHF ruled out. 4. End-stage renal disease on hemodialysis 5. Hypertension 6. Type 2 diabetes mellitus 7. History of TIAs 8. Hypothyroidism 9. Depression 10. Morbid obesity - Secondary Discharge Diagnosis Chronic Problems: Chronic Problems (Last Reviewed 01/03/20 @ 08:32 by Danette Marques) Pedal edema (Chronic) Continue Lasix. Will monitor. Shortness of breath (Chronic) This is chronic and stable. We are checking an echo in 6 months to evaluate for progression of her mitral stenosis. At this time it appears to be related to her significant obesity. Discussed weight loss with the patient. 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 Status post cholecystectomy. 2. The left kidney is absent. 3. Colonic diverticulosis most severely affecting the sigmoid. There is no evidence of associated diverticulitis. 4. KAT catheter present within a decompressed urinary bladder. 5. Mild skin thickening and subcutaneous fatty stranding of the patient''s lower right pelvic pannus. There is no evidence of soft tissue gas or abnormal soft tissue fluid collection. Findings are compatible with cellulitis. 6. There is no evidence of free intra-abdominal or intrapelvic air or fluid. 7. The entire girth of the patient''s abdomen is not included in the [id number] of this study. Electronically Signed: Carroll Pandey MD at 16:41 EDT , Service support , Chest X-Ray 01/11/20 16:00 IMPRESSION: Normal x-ray examination of the chest. Electronically Signed: Carroll Pandey MD at 16:20 EDT , Service support , Chest CTA 01/14/20 10:43 IMPRESSION: 1. Limited study due to patient''s size. 2. No CTA evidence of suspicious pulmonary thromboemboli, thoracic aortic aneurysm or dissection. 3. Breathing motion artifact throughout the lung parenchyma without obvious infiltrates. 4. Curvilinear subsegmental atelectases in the left posterior lung base. 5. No other additional findings or changes when compared to 08/27/2010. Electronically Signed: Jacky Hanna MD at 12:54 EDT , Service support , Dr. Wallace/Dr. Wills- Pulmonary medicine Dr. Lambert- Nephrology Dr. Saxena- ID Operations: None Procedures: Dialysis Summary of Care Provided: The patient is a 69 year old F admitted 01/11/2020 due to fever and hypotension. 1. Severe sepsis secondary to lower abdominal wall cellulitis/panniculitis-infectious disease consulted during admission. Blood cultures show no growth. Transition IV Zosyn to oral doxy and augmentin to complete course. Suspect component of candidal intertrigo as well. Continue fluconazole 150 mg once weekly for 4 weeks. Keep area clean and dry and use barrier for moisture absorption. Follow-up with primary care provider in 1 week. 2. Strep agalactiae bacteruria-suspect colonization. Asymptomatic. 3. Hypoxia-unclear etiology. Chest x-ray on admission normal. CTA shows no evidence of PE, no infiltrates, atelectasis. Patient underwent home oxygen testing and noted to be 68% on room air. Oxygen stable on 3 L nasal cannula. Pulmonary medicine consulted as unclear etiology for significant hypoxia. Suspect hypoxia chronic in nature due to pulmonary hypertension, morbid obesity and untreated sleep apnea. Outpatient follow-up with pulmonary medicine in 2 weeks. Patient will need outpatient sleep study. Continue supplement oxygen to maintain O2 at or above 90%. 4. End-stage renal disease on hemodialysis-continue dialysis and nephrology follow-up as scheduled. 5. Hypertension-stable, continue metoprolol, Lasix. 6. Type 2 diabetes mellitus-Continue home insulin regimen. 7. History of TIAs-on aspirin. 8. Hypothyroidism-continue Synthroid regimen. 9. Depression-on Viibryd. 10. Morbid obesity- encouraged diet and lifestyle modifications. General: Alert, Oriented x3, Cooperative HEENT: Atraumatic, PERRLA, EOMI, Normocephalic Neck: Supple, No JVD, Negative Carotid Bruits Lungs: Clear to auscultation, Diminished Cardiovascular: Regular rate, No murmurs Abdomen: Bowel Sounds Present, Soft, Non Tender, Non-Distended, Obese Extremities: No clubbing, No cyanosis, - - Left upper extremity AV fistula Skin: - - Lower abdominal/pannus area with diffuse erythema and warmth Musculoskeletal: No Tenderness to Palpation of Joints or Extremities Neurological: Cranial nerves II-XII grossly intact, Neuro grossly intact Psych/Mental Status: Normal Affect, Appropriate Patient seen and examined prior to discharge. Physical assessment as noted above. Patient is stable for discharge with follow up recommendations as noted above. This patient was seen by ADITI Higuera under the supervision of Dr. Alanis. - Physical Exam Vitals/I&O's: Vital Signs Temp Pulse Resp BP Pulse Ox 98.6 F 85 20 H 138/75 H 94 01/16/20 08:40 01/16/20 08:53 01/16/20 08:40 01/16/20 08:40 01/16/20 09:02 Oxygen Flow Rate (L/min) [ 4 AMBULATION with Oxygen] Oxygen Flow Rate (L/min) [At 3 REST on Room Air] Oxygen Flow Rate (L/min) 4 Oxygen Delivery Method Nasal Cannula Weight: 358 lb 7.546 oz Body Mass Index (BMI) 64.7 Finger Stick Blood Glucose 140 Intake and Output for Last 24 Hours 01/14/20 01/15/20 01/16/20 23:59 23:59 23:59 Intake Total 940 / 1180 1170 / 1170 Output Total 2 / 2 Balance 940 / 1180 1170 / 1170 -2 / -2 Microbiology Past 72 Hours 01/11/20 15:24 Blood Culture (Wb) - Right Hand Blood Culture - Preliminary No growth in 48 hours. 01/11/20 15:02 Blood Culture (Wb) - Anticubital Right Blood Culture - Preliminary No growth in 48 hours. Laboratory Results 01/15/20 12:32: POC Glucose 276 H 01/15/20 16:26: POC Glucose 270 H 01/15/20 22:37: POC Glucose 300 H 01/16/20 06:25: WBC 7.2, RBC 3.41 L, Hgb 10.6 L, Hct 33.9 L, MCV 99.4 H, MCH 31.1, MCHC 31.3 L, RDW Std Deviation 54.7 H, RDW Coeff of Ben 14.9 H, Plt Count 252, MPV 9.9 01/16/20 06:25: Sodium 138, Potassium 4.1, Chloride 99, Carbon Dioxide 30.0, Anion Gap 9, BUN 46 H, Creatinine 7.01 H, Estim Creat Clear Calc 6.16, Est GFR (MDRD) Af Amer 8 L, Est GFR (MDRD) Non-Af 6 L, BUN/Creatinine Ratio 6.6 L, Glucose 169 H, Calcium 8.6 01/16/20 06:48: POC Glucose 182 H 01/16/20 11:51: POC Glucose 284 H Current Medications Acetaminophen (Tylenol) 650 mg PO Q6H PRN PRN PRN Reason: Pain Score 1-10/Temp > 100.7 F Last Admin: 01/15/20 00:16 Dose: 650 mg Documented by: Albuterol Sulfate (Ventolin Aerosols) 2.5 mg INHALATION Q2H PRN PRN PRN Reason: SOB/Wheezing Last Admin: 01/15/20 08:03 Dose: 2.5 mg Documented by: Amoxicillin/Clavulanate Potassium (Augmentin Tablet) 500 mg PO Q24H [facility] Stop: 01/20/20 13:01 Last Admin: 01/15/20 14:24 Dose: 500 mg Documented by: Aspirin (Ecotrin) 81 mg PO DAILY@0800 [facility] Last Admin: 01/16/20 08:53 Dose: 81 mg Documented by: Calcium Acetate (Phoslo Gel Cap) 2,001 mg PO TIDCM [facility] Last Admin: 01/16/20 11:54 Dose: 2,001 mg Documented by: Clotrimazole (Lotrisone) 1 applic TOPICAL BID [facility]; Protocol Last Admin: 01/16/20 08:57 Dose: 1 applic Documented by: Dextrose (D50w Syringe) 0 gm IV X1 PRN; Protocol PRN Reason: Hypoglycemia Doxepin HCl (Sinequan) 25 mg PO QHS PRN PRN Reason: SLEEP Last Admin: 01/14/20 21:28 Dose: 25 mg Documented by: Doxycycline Monohydrate (Doxycycline) 100 mg PO BID [facility] Stop: 01/20/20 22:01 Last Admin: 01/16/20 08:53 Dose: 100 mg Documented by: Fluconazole (Fluconazole) 150 mg PO QWEEK@1000 [facility] Stop: 02/10/20 10:01 Furosemide (Lasix) 40 mg PO DAILY [facility] Last Admin: 01/16/20 08:53 Dose: 40 mg Documented by: Glucagon () 1 mg IM .X1 PRN PRN Reason: Hypoglycemia Heparin Sodium (Porcine) (Heparin Na) 5,000 unit SC Q8 [facility] Last Admin: 01/16/20 06:51 Dose: 5,000 unit Documented by: Sodium Chloride () 250 mls @ 15 mls/hr IV .[id number] PRN PRN Reason: Saline Flush Sodium Chloride () 250 mls @ 15 mls/hr IV .[id number] PRN PRN Reason: Additional IVPB Infusion Insulin Glargine (Lantus (Bkc)) 10 units SC BID [facility] Last Admin: 01/16/20 11:52 Dose: 10 u Documented by: Insulin Human Lispro (Humalog Kwikpen (Bk)) 0 unit SC ACHS [facility]; Protocol Last Admin: 01/16/20 11:53 Dose: 10 u Documented by: Levothyroxine Sodium (Synthroid) 200 mcg PO DAILY@0600 [facility] Last Admin: 01/16/20 06:53 Dose: 200 mcg Documented by: Metoprolol Tartrate (Lopressor (Beta Nohemy)) 12.5 mg PO BID [facility] Last Admin: 01/16/20 08:53 Dose: 12.5 mg Documented by: Nystatin (Mycostatin Powder) 1 applic TOPICAL TID [facility]; Protocol Last Admin: 01/16/20 06:53 Dose: 1 applicatio Documented by: Sodium Chloride () 10 - 40 ml IV UD PRN PRN Reason: SALINE FLUSH Last Admin: 01/15/20 16:30 Dose: 20 ml Documented by: Vilazodone HCl (Viibryd) 40 mg PO QHS EZEQUIEL Last Admin: 01/15/20 22:41 Dose: 40 mg Documented by: Discharge Diet: Low fat/ Low Cholesterol, 1800 Calorie Control Diet, Carb Control Diet, Renal Diet Discharge Activity: Return to Normal Activity Call your doctor if you observe: Shortness of breath, Dizziness, Fainting spells, Chest pain Home Medications: Medications to take at Discharge Vilazodone Hydrochloride [Viibryd] 40 mg PO QHS 05/29/14 Aspirin E.C. [Ecotrin] 81 mg PO DAILY@0800 #30 tab 06/01/14 dulaglutide 1.5 mg/0.5 mL subcutaneous pen injector 1.5 mg SC TH 04/11/19 levothyroxine 200 mcg tablet 200 mcg PO DAILY 04/11/19 B complex-vitamin C-folic acid 0.8 mg tablet 1 tab PO DAILY 12/13/19 calcium acetate 667 mg tablet 2,001 mg PO TID 12/13/19 cholecalciferol (vitamin D3) 25 mcg (1,000 unit) tablet 25 mcg PO DAILY 12/13/19 doxepin 25 mg capsule 25 mg PO QHS PRN 12/13/19 insulin regular hum U-500 conc 500 unit/mL subcutaneous soln 170 unit SC BID ml 12/13/19 metoprolol tartrate 50 mg tablet 25 mg PO BID tab 12/13/19 clotrimazole-betamethasone 1 %-0.05 % topical cream 1 applic TOPICAL BID 14 Days #45 g 01/03/20 diphenoxylate-atropine 2.5 mg-0.025 mg tablet 1 tab PO QHS PRN 01/03/20 Amox/Clavulanate Tablet [Augmentin Tablet] 500 mg PO Q24H #5 tab 01/16/20 Doxycycline 100 mg PO BID #10 cap 01/16/20 Fluconazole 150 mg PO QWEEK@1000 #3 tab 01/16/20 Furosemide [Lasix] 40 mg PO DAILY #30 tab 01/16/20 Following Prescriptions Were Given to Patient: Amox/Clavulanate Tablet [Augmentin Tablet] 500 mg PO Q24H #5 tab Transmission Status: Received by [facility] Doxycycline 100 mg PO BID #10 cap Transmission Status: Received by [facility] Fluconazole 150 mg PO QWEEK@1000 #3 tab Transmission Status: Received by [facility] Furosemide [Lasix] 40 mg PO DAILY #30 tab Transmission Status: Received by [facility] Primary Care Physician: Emeka Kramer Chi, MD [Primary Care Provider] - Please follow up with your Primary Care Physician in: 1 Week Please Follow Up With: Sheila Galvan NP-C When: As scheduled 02/06/2020 Please Follow Up With: Rocio Lambert DO When: As scheduled for dialysis and follow up Disposition: Home with Home Health Minutes spent on discharge:: 35 Patient Condition:: Stable Medical Necessity - Tobacco Use Smoking Status: Former smoker Tobacco Use: Cigarettes Meaningful Use Info Meaningful Use Diagnoses (Choose all that apply): None applicable <ZekeNodaway - Last Filed: 01/16/20 17:43> Discharge Date and Diagnosis - Secondary Discharge Diagnosis Chronic Problems: Chronic Problems (Last Reviewed 01/03/20 @ 08:32 by Danette Marques) Pedal edema (Chronic) Continue Lasix. Will monitor. Shortness of breath (Chronic) This is chronic and stable. We are checking an echo in 6 months to evaluate for progression of her mitral stenosis. At this time it appears to be related to her significant obesity. Discussed weight loss with the patient. 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 I have independently interviewed and examined the patient and reviewed pertinent historical, laboratory, and other data. Please refer to her note for patient's presentation, findings, and recommendations. 72-year-old with multiple comorbidities including ESRD on hemodialysis, morbid obesity who was admitted from PCPs office with fever and hypotension. Patient had presented with fever and chills of 2 days with blood pressure of 88/42 in the PCPs office. Lactic acid was elevated at 2.3, patient was hypoxic at 88% on room air. Patient was managed as severe sepsis due to lower abdominal wall cellulitis/panniculitis. Initially managed on broad-spectrum antibiotics, on tapered down to Augmentin. Patient was found to be hypoxic, she does not wear oxygen at home. Chest x-ray CT of the chest were unremarkable. He was suspected of having obstructive sleep apnea. Pulmonology was consulted. They will follow-up with the patient in the outpatient. Physical Exam: Gen: Super morbidly obese, not pale, not jaundiced, alert oriented x3 CVS:HS I +II, regular, no murmurs RESP: CTA GI: BS present and normal, nontender, no palpable organs EXT:No edema - Physical Exam Vitals/I&O's: Vital Signs Temp Pulse Resp BP Pulse Ox 98.6 F 85 20 H 138/75 H 94 01/16/20 08:40 01/16/20 08:53 01/16/20 08:40 01/16/20 08:40 01/16/20 09:02 Oxygen Flow Rate (L/min) [ 4 AMBULATION with Oxygen] Oxygen Flow Rate (L/min) [At 3 REST on Room Air] Oxygen Flow Rate (L/min) 4 Oxygen Delivery Method Nasal Cannula Weight: 162.6 kg Body Mass Index (BMI) 64.7 Finger Stick Blood Glucose 140 Intake and Output for Last 24 Hours 01/14/20 01/15/20 01/16/20 23:59 23:59 23:59 Intake Total 940 / 1180 1170 / 1170 Output Total 2 / 2 Balance 940 / 1180 1170 / 1170 -2 / -2 Microbiology Past 72 Hours 01/11/20 15:02 Blood Culture (Wb) - Anticubital Right Blood Culture - Final No growth in 5 days. Laboratory Results 01/15/20 22:37: POC Glucose 300 H 01/16/20 06:25: WBC 7.2, RBC 3.41 L, Hgb 10.6 L, Hct 33.9 L, MCV 99.4 H, MCH 31.1, MCHC 31.3 L, RDW Std Deviation 54.7 H, RDW Coeff of Ben 14.9 H, Plt Count 252, MPV 9.9 01/16/20 06:25: Sodium 138, Potassium 4.1, Chloride 99, Carbon Dioxide 30.0, Anion Gap 9, BUN 46 H, Creatinine 7.01 H, Estim Creat Clear Calc 6.16, Est GFR (MDRD) Af Amer 8 L, Est GFR (MDRD) Non-Af 6 L, BUN/Creatinine Ratio 6.6 L, Glucose 169 H, Calcium 8.6 01/16/20 06:48: POC Glucose 182 H 01/16/20 11:51: POC Glucose 284 H Inpatient E&M: [id number] Disch Hosp
--- NOTE | 2020-01-16 13:37 | PCM.PN.REN ---
Subjective: cellulitis of abdomen improving. Bld cx no growth. DC on oral antibx. [facility] - Physical Exam Vitals/I&O's: Vital Signs Temp Pulse Resp BP Pulse Ox 98.6 F 85 20 H 138/75 H 94 01/16/20 08:40 01/16/20 08:53 01/16/20 08:40 01/16/20 08:40 01/16/20 09:02 Oxygen Flow Rate (L/min) [ 4 AMBULATION with Oxygen] Oxygen Flow Rate (L/min) [At 3 REST on Room Air] Oxygen Flow Rate (L/min) 4 Oxygen Delivery Method Nasal Cannula Weight: 162.6 kg Body Mass Index (BMI) 64.7 Finger Stick Blood Glucose 140 Intake and Output for Last 24 Hours 01/14/20 01/15/20 01/16/20 23:59 23:59 23:59 Intake Total 940 / 1180 1170 / 1170 Output Total 2 / 2 Balance 940 / 1180 1170 / 1170 -2 / -2 General: Alert, Oriented x3, Cooperative, No apparent distress Cardiovascular: Regular rate Extremities: Edema Skin: Rash Present - abdominal cellulitis, induration improving Microbiology Past 72 Hours 01/11/20 15:24 Blood Culture (Wb) - Right Hand Blood Culture - Preliminary No growth in 48 hours. 01/11/20 15:02 Blood Culture (Wb) - Anticubital Right Blood Culture - Preliminary No growth in 48 hours. Laboratory Results 01/15/20 16:26: POC Glucose 270 H 01/15/20 22:37: POC Glucose 300 H 01/16/20 06:25: WBC 7.2, RBC 3.41 L, Hgb 10.6 L, Hct 33.9 L, MCV 99.4 H, MCH 31.1, MCHC 31.3 L, RDW Std Deviation 54.7 H, RDW Coeff of Ben 14.9 H, Plt Count 252, MPV 9.9 01/16/20 06:25: Sodium 138, Potassium 4.1, Chloride 99, Carbon Dioxide 30.0, Anion Gap 9, BUN 46 H, Creatinine 7.01 H, Estim Creat Clear Calc 6.16, Est GFR (MDRD) Af Amer 8 L, Est GFR (MDRD) Non-Af 6 L, BUN/Creatinine Ratio 6.6 L, Glucose 169 H, Calcium 8.6 01/16/20 06:48: POC Glucose 182 H 01/16/20 11:51: POC Glucose 284 H Medical Necessity - Tobacco Use Smoking Status: Former smoker Tobacco Use: Cigarettes Assessment/Plan All Active Problems (Last Reviewed 01/03/20 @ 08:32 by Danette Marques) Cellulitis (Acute) Severe sepsis (Acute) Preoperative cardiovascular examination (Acute) Vitreous hemorrhage of right eye (Acute) Hypoxia (Resolved) Shortness of breath (Resolved) 1. ESRD HD TTS. [facility] 2. Abdominal wall cellulitis, panniculitis improving. Bld cx no growth so far
--- NOTE | 2020-01-17 15:55 | CASEMGMT ---
RN CM F/U Phone Call LACE: 13 Strata: 3 Discharge date: 01/16/2020 Call date: 01/17/2020 Call time: 1556 Attempted to reach pt without success at this time, message left for pt to call this RN CM if/when able. SStaten RN CM Admission dx: Sepsis from abd wall abscess, ESRD on HD
== END 2020-01-16 12:45 | disposition home health service (06) | DRG 871 ==
LOC: ED 16:23 → ICU 18:09 → PCU 01-12 10:11
PROVIDERS: Internal Medicine; Nurse Practitioner Family; Admitting Provider Internal Medicine; Emergency Provider Emergency Medicine; PCP Family Medicine Geriatric Medicine; Visit Provider Internal Medicine
DX: A41.9 Sepsis, unspecified organism (principal); N18.6 End stage renal disease; L03.311 Cellulitis of abdominal wall; L02.211 Cutaneous abscess of abdominal wall; L03.116 Cellulitis of left lower limb; L03.115 Cellulitis of right lower limb; I12.0 Hypertensive chronic kidney disease with stage 5 chronic kidney disease or end stage renal disease; E66.2 Morbid (severe) obesity with alveolar hypoventilation; Z68.44 Body mass index [BMI] 60.0-69.9, adult; M79.3 Panniculitis, unspecified; B37.2 Candidiasis of skin and nail; I27.20 Pulmonary hypertension, unspecified; R09.02 Hypoxemia; E11.22 Type 2 diabetes mellitus with diabetic chronic kidney disease; R65.20 Severe sepsis without septic shock; Z99.2 Dependence on renal dialysis; E11.40 Type 2 diabetes mellitus with diabetic neuropathy, unspecified; E11.319 Type 2 diabetes mellitus with unspecified diabetic retinopathy without macular edema; I05.0 Rheumatic mitral stenosis; E78.5 Hyperlipidemia, unspecified; E03.9 Hypothyroidism, unspecified; F32.9 Major depressive disorder, single episode, unspecified; F41.9 Anxiety disorder, unspecified; Z22.330 Carrier of Group B streptococcus; Z79.82 Long term (current) use of aspirin; Z79.4 Long term (current) use of insulin; Z79.890 Hormone replacement therapy; Z79.899 Other long term (current) drug therapy; Z86.73 Personal history of transient ischemic attack (TIA), and cerebral infarction without residual deficits; Z87.891 Personal history of nicotine dependence
CPT/HCPCS: 36415; 36600; 71045; 71275; 74177; 80048; 80053; 80069; 81001; 82550; 82803; 82962; 83036; 83605; 83735; 84443; 84484; 85025; 85027; 85610; 85730; 87040; 87077; 87081; 87086; 87088; 87186; 87641; 90937; 93005; 94640; 97110; 97116; 97162; 97166; 97530; 97535; 97802; 97803; 99251; 99285; 99406; J7030; J7040; J7050; Q9967; A4216; G0257; G0463

== ENCOUNTER → 2020-02-28 13:47 | Outpatient (CLI) | payer MEDICARE, OTHER, SELFPAY ==
[2020-01-11 19:10] VITALS: BMI 64.7
[2020-02-28 17:04] LABS: Absolute Lymphocyte Count 0.73 X10^3/uL (0.83-4.51); Absolute Neutrophil Count 7.6 X10^3/uL (2.0-7.7); Basophil# 0.02 X10^3/uL; Basophil% 0.2 % (0-1); Eosinophil# 0.34 X10^3/uL; Eosinophils% 3.7 % (0-5); Hematocrit 34.6 % (37-47); Hemoglobin 10.5 g/dL (12.0-15.0); Lymphocyte # 0.73 X10^3/ul (4.0); Mean Corp Hgb Conc 30.3 g/dL (32-36); Mean Corpuscular Hgb 30.9 pg (27.0-32.0); Mean Corpuscular Volume 101.8 fL (81-99); Mean Platelet Vol. 9.6 fl (6.2-12.0); Monocyte# 0.48 X10^3/uL; Monocyte% 5.2 % (0-10); NRBC Flagged by Analyzer 0 % (0-5); Neutrophil # 7.56 X10^3/uL (2.7-7.7); Neutrophil % 82.5 % (47-70); Platelet Count 287 K/mm3 (150-450); RBC Distribution Width CV 15.7 % (11.6-14.6); RBC Distribution Width SD 59.4 fl (35.1-43.9); White Blood Count 9.2 K/mm3 (4.4-11.0)
[2020-02-28 18:06] LABS: M R Staph aureus DNA By PCR Negative (Negative); Probe Check PASS; Specimen Processing Control PASS; Staph aureus DNA By PCR POSITIVE (Negative)
== END ==
PROVIDERS: PCP Family Medicine Geriatric Medicine; Visit Provider Family Medicine Geriatric Medicine
DX: B95.62 Methicillin resistant Staphylococcus aureus infection as the cause of diseases classified elsewhere (principal); M79.609 Pain in unspecified limb
CPT/HCPCS: 36415; 85025; 87070; 87205; 87640

== ENCOUNTER → 2020-02-28 13:48 | Outpatient (CLI) | payer MEDICARE, OTHER, SELFPAY ==
[2020-01-11 19:10] VITALS: BMI 64.7
--- NOTE | 2020-02-28 14:00 | RAD_ITS ---
STUDY: X-RAY CHEST REASON FOR EXAM: Female, 69 years old. SOB TECHNIQUE: 2 views COMPARISON: Prior chest radiograph of 09/11/2019 FINDINGS: Limited by patient''s large body habitus. Negative for gross consolidation noting limited visibility of the lung bases secondary to the patient''s large body habitus. Cardiomegaly Normal mediastinum and negrito. Pulmonary venous congestion. Normal visualized aortic arch and descending thoracic aorta. Normal visualized ribs, clavicles, and shoulders. There is no demonstrated abnormality of the visualized soft tissue structures of the upper abdomen. RAD/Chest PA and Lateral IMPRESSION: Borderline to mild cardiomegaly with pulmonary venous congestion without other acute cardiopulmonary findings or changes. Note that examination of the lung bases is limited by the patient''s large body habitus. Electronically Signed: Gracy Nolasco MD at 19:28 EDT , Service support ,
== END ==
PROVIDERS: PCP Family Medicine Geriatric Medicine; Referring Provider Family Medicine Geriatric Medicine; Visit Provider Family Medicine Geriatric Medicine
DX: R06.02 Shortness of breath (principal); B95.62 Methicillin resistant Staphylococcus aureus infection as the cause of diseases classified elsewhere; M79.609 Pain in unspecified limb
CPT/HCPCS: 36415; 71046; 85025; 87070; 87077; 87186; 87205; 87640

== ENCOUNTER 2020-02-29 15:40 | Emergency (ER) | payer MEDICARE, OTHER, SELFPAY ==
[2020-01-11 19:10] VITALS: BMI 64.7
[2020-02-29 15:41] VITALS: BP 128/102; PULSE 69; RESP 26; TEMP 36.6; O2SAT 98; BMI 68.8
--- NOTE | 2020-02-29 16:24 | ED.DCSUM_ITS ---
History of Present Illness Chief Complaint: Wound Informant: Patient, Significant Other Onset: Today Narrative: Patient sent down from PCP office for fistula bleed. Fistula has been there for over 2 years, dialysis she received Saturdays. She left [facility] at 330 today. She went to her PCP office for follow-up from recent hospitalization for cellulitis, she thinks he may have bumped her arm in the car, upon going to PCP office, the dressing was removed and it started bleeding. She is sent immediately down here. She does report she takes a baby aspirin daily. She denies any cardiac stent history of any peripheral stent history. History of congenital single kidney. She is on chronic home oxygen of 4 L. Denies lightheaded symptoms. Prior similar symptoms: Yes Past Medical History - Allergies and Home Meds Allergies/Adverse Reactions: Allergies No Known Allergies Allergy (Verified 02/29/20 15:45) Primary Care Physician: Emeka Kramer Chi, MD [Primary Care Provider] - Past Medical History: - - hypertension, hyperlipidemia, end-stage renal disease on dialysis, hypothyroidism, home oxygen 4 L. Surgical History: cataract, cholecystectomy, herniorrhaphy, - - wrist fx, AV fistula Smoking Status: Never smoker - Family History Paternal Family History: Family History (Last Reviewed 02/07/20 @ 09:41 by Sheila Galvan MEASUREMENT AND SENSING TECHNICIAN, MEASUREMENT AND SENSING TECHNICIAN-C) Sister Breast cancer Mother Breast cancer Grandmother Cancer Family History: Reports: Unknown Maternal Family History: Family History (Last Reviewed 02/07/20 @ 09:41 by Sheila Galvan NP, MEASUREMENT AND SENSING TECHNICIAN-C) Sister Breast cancer Mother Breast cancer Grandmother Cancer Family History: Reports: Diabetes, Heart Disease, Hypertension Review of Systems General: Denies: Chills, Fever, Sweats Eyes: Denies: Visual changes - bilaterally, Diplopia ENT: Denies: Rhinorrhea, Sore throat Cardiovascular: Denies: Chest pain, Palpitations Respiratory: Denies: Dyspnea, Cough, Dyspnea on exertion Gastrointestinal: Denies: Abdominal pain, Nausea, Vomiting, Diarrhea, Melena, Hematochezia Genitourinary: Denies: Dysuria, Hematuria, Frequency Musculoskeletal: Denies: Back pain, Extremity Pain Skin: Reports: Wounds. Denies: Rash Neurological: Denies: Headache, Weakness, Numbness Physical Exam Vital Signs/Narrative: Vital Signs Temp Pulse Resp BP Pulse Ox 02/29/20 15:41 97.8 F 69 26 H 128/102 H 98 General: Well nourished, Well developed, No Acute Distress, - - Nursing holding pressure in left forearm due to bleed. Head: Normocephalic, Atraumatic Eyes: Perrl, EOMI ENT: Moist mucous membranes, No rhinorrhea Neck: Supple, Nontender Cardiovascular: Regular rate, Regular rhythm, No murmurs Respiratory: No distress, CTA bilaterally, Chest nontender Abdomen: Soft, Nontender, Nondistended, Normal bowel sounds Back: Nontender, Normal Inspection Extremities: Nontender, No edema Skin: Normal color, No rash, - - Left forearm: After blood pressure cuff pumped up temporarily, pressure dressing removed, noted pinpoint bleed above fistula to the distal puncture site from dialysis. Neurological: Alert, Oriented x3, Cranial nerves II-XII grossly intact, Normal Strength, Normal Sensation Psychological: Normal affect, Normal Mood Diagnostic/Tx/Re-eval - Medical Decision Making Patient bleeding from fistula from puncture site likely from blunt trauma on the car. She is on baby aspirin. Initial blood pressure cuff to evaluate then released. A [id number] stitch was placed over the puncture site after blood pressure cuff placed for maximum of 5 minutes, patient had a pressure dressing maintaining and controlling the bleeding. She is monitored for period time in the ED. I took the dressing off myself to reevaluate there was no bleeding from the site. Gentle pressure dressing was replaced by myself. Surgeon, Dr. Buckley, updated covering for Dr. Lenz. Patient will follow-up as an outpatient. Procedure note: Verbal consent with urgent condition. Normal sterile conditions, blood pressure cuff pump to 240, Miguel wrap over the blood pressure cuff, dressing removed, there was a small leakage from the puncture site. 2 cc lidocaine 1% with epinephrine used for superficial analgesia. 1, 4-0 nylon figure 8 stitch was placed with good hemostasis. Blood pressure cuff was r eleased there is no rebleeding. Pressure dressing was placed. Patient tolerated procedure well. ED Disposition - Plan for ED Patient: Disposition: Home or Assisted Living Diagnosis: Hemorrhage of arteriovenous fistula Instructions: ED Wound Puncture General Referrals: Lio Lenz MD [STAFF PHYSICIAN] - 3-5 Days Emeka Kramer Chi, MD [Primary Care Provider] - 3-5 Days Additional Instructions: Status post [id number] stitch. Follow-up with Dr. Lenz for evaluation and suture removal.
[2020-02-29 17:05] VITALS: BP 122/68; PULSE 69; RESP 20; O2SAT 98
== END 2020-02-29 18:10 | disposition home or self-care (01) ==
PROVIDERS: Emergency Provider Emergency Medicine; PCP Family Medicine Geriatric Medicine
DX: T82.838A Hemorrhage due to vascular prosthetic devices, implants and grafts, initial encounter (principal); Q60.0 Renal agenesis, unilateral; I12.0 Hypertensive chronic kidney disease with stage 5 chronic kidney disease or end stage renal disease; N18.6 End stage renal disease; Z99.2 Dependence on renal dialysis; E03.9 Hypothyroidism, unspecified; E78.5 Hyperlipidemia, unspecified; Z99.81 Dependence on supplemental oxygen; Z79.82 Long term (current) use of aspirin
CPT/HCPCS: 12001; 99282

== ENCOUNTER 2020-03-04 13:28 | Inpatient (IN) | payer MEDICARE, OTHER, SELFPAY ==
[2020-03-04] VITALS (9 sets, daily range): BP systolic 87–136; BP diastolic 28–113; PULSE 86–91; RESP 18–33; TEMP 36–37.2; O2SAT 91–99; BMI 58.5; BMI 68.1
--- NOTE | 2020-03-04 14:21 | EKG12_ITS ---
Test Reason : CELLULITIS Blood Pressure : / mmHG Vent. Rate : 087 BPM Atrial Rate : 087 BPM P-R Int : 164 ms QRS Dur : 088 ms QT Int : 376 ms P-R-T Axes : 055 079 033 degrees QTc Int : 452 ms Normal sinus rhythm Possible Left atrial enlargement Low voltage QRS Borderline ECG Confirmed by TYRONE SHAFFER, CHRISTA ([id number]), assignment desk editor ANGELITO WALTERS ([id number]) on 03/06/2020 9:33:37 AM Referred By: AIRAM Confirmed By:CHRISTA HANSEN MD
--- NOTE | 2020-03-04 14:30 | RAD_ITS ---
STUDY: X-RAY CHEST REASON FOR EXAM: Female, 69 years old. R LEG CELLULITIS. ALSO HAVING HYPOGLYCEMIC EVENTS D/T NOT EATING. PT FELL OTHER DAY. COMPLAINS OF WOUND ON BUTTOCK. PT DROWSY IN TRIAGE TECHNIQUE: Single AP portable view of the chest. COMPARISON: 02/28/2020 FINDINGS: Alveolar opacity in the lower left lung consistent with left lower lobe pneumonia or atelectasis. There is no demonstrated pleural abnormality. There is moderate cardiac enlargement. Normal mediastinum and negrito. Normal visualized pulmonary arteries. Normal visualized aortic arch and descending thoracic aorta. Normal visualized thoracic spine. Normal visualized ribs, clavicles, and shoulders. There is no demonstrated abnormality of the visualized soft tissue structures of the upper abdomen. RAD/Chest 1 View (Portable) IMPRESSION: Left lower lobe pneumonia or atelectasis. Electronically Signed: Gallo Wheeler MD at 14:41 EDT Tel , Service support ,
[2020-03-04 15:37] LABS: Absolute Neutrophil Count 8.6 X10^3/uL (2.0-7.7); Basophil# 0.02 X10^3/uL; Basophil% 0.2 % (0-1); Eosinophil# 0.16 X10^3/uL; Eosinophils% 1.5 % (0-5); Hematocrit 32.5 % (37-47); Hemoglobin 9.8 g/dL (12.0-15.0); Lymphocyte % 7.7 % (19-41); Mean Corp Hgb Conc 30.2 g/dL (32-36); Mean Corpuscular Hgb 31.1 pg (27.0-32.0); Mean Corpuscular Volume 103.2 fL (81-99); Monocyte# 0.73 X10^3/uL; NRBC Flagged by Analyzer 0 % (0-5); Neutrophil # 8.62 X10^3/uL (2.7-7.7); Neutrophil % 82.7 % (47-70); Platelet Count 279 K/mm3 (150-450); RBC Distribution Width CV 15.9 % (11.6-14.6); RBC Distribution Width SD 59.6 fl (35.1-43.9); Red Blood Count 3.15 M/mm3 (4.2-5.4); White Blood Count 10.4 K/mm3 (4.4-11.0)
[2020-03-04 16:03] LABS: ALB/GLOB Ratio 0.5 RATIO (0.9-2.4); AST(SGOT) 44 U/L (15-37); Alanine Aminotransfer ALT/SGPT 41 U/L (13-56); Albumin, Serum 2.6 g/dL (3.2-5.0); Alkaline Phosphatase 78 U/L (45-117); Anion Gap 12 (5-15); BUN 80 mg/dL (7-18); BUN/Creat Ratio 7.2 RATIO (10-20); Calcium,Total 8.1 mg/dL (8.5-10.1); Chloride 95 mmol/L (98-107); EST Glomerular Filtration Rate 4 mL/min (>60); Est Glom Filt Rate - Afr Amer 4 mL/min (>60); Estimated Creatinine Clearance 3.89 ml/min; Globulin 5.3 g/dL (2.2-4.2); Glucose 115 mg/dL (74-106); Potassium 5.1 mmol/L (3.5-5.1); Protein, Total 7.9 g/dL (6.4-8.2); Sodium Level 136 mmol/L (136-145)
[2020-03-04 16:08] LABS: Lactic Acid 1.8 mmol/L (0.4-1.9)
[2020-03-04] MEDS: fentaNYL 100 MCG/2 ML Ampul 50 MCG IV (16:22)
[2020-03-04] MEDS: Ondansetron 4 MG/2 ML Vial IV (16:23)
--- NOTE | 2020-03-04 16:26 | ED.VISSUMM ---
- ER Visit Summary Date of Service: 03/04/20 Chief Complaint: Right leg redness History of Present Illness: The patient is a [address] Kramer and Dr. Lambert. reports she saw Dr. Kramer in the office 1 week ago with right leg redness and was felt to be cellulitis. She was given a dose of Rocephin IM and was supposed to follow-up in the office in 2 days. She was unable to follow-up because of bleeding from her fistula and missed her appointment. She has not been on antibiotics at home. reports patient has been increasingly more ill. She has generalized weakness and a poor appetite. He reports that she has been nauseated and vomiting in the mornings. She has not vomited today. She gets diarrhea after dialysis. Her last round of dialysis was on Wednesday. She had a cut short by 1 hour. Patient reports that she has chronic shortness of breath. She reports she is had nonproductive cough for the past 3 weeks. Physical Examination: Vitals: 97.3, 120/60, 90, 33, 96 report sent on 4 L nasal cannula which is her home O2.. General: Well-nourished and well-developed. Head: Normocephalic atraumatic. Neck: Supple, no lymphadenopathy. No JVD. Nontender. Cardiovascular: Regular rate and rhythm. No murmurs. Respiratory: No respiratory distress. Mild wheezing bilaterally with good air movement. Abdominal: Soft, nontender, nondistended, normal bowel sounds. No guarding, rebound, or peritoneal signs. Back: Nontender. Extremities: 2+ pitting edema on the left. 3+ on the right. Her right leg is also weeping. There is an area of the erythema with some superficial skin breakdown on the right as well.. Skin: Normal color, no rash. Neurologic: Alert and oriented ?3. Cranial nerves II through XII are intact. Normal strength and sensation. Psych: Normal affect. Test Results: EKG is sinus at [address] changes. CBC shows an H&H 9.8 32.5, 7 neutrophils 83, lymphocytes of 8. Chem-7 shows a chloride of 95, glucose 115, BUN of 80, creatinine 11.1, calcium of 8.1. LFTs show an albumin of 2.6, globulin 5.3. AST is 44. Lactic acid is 1.8. Clinical Impression(s) from Imaging Studies Chest X-Ray 03/04/20 14:30 IMPRESSION: Left lower lobe pneumonia or atelectasis. Electronically Signed: Gallo Wheeler MD at 14:41 EDT Tel , Service support , Emergency Department Course and Treatment: Patient was given a dose of Zofran and fentanyl IV. She was given Zosyn and vancomycin IV as well. She is resting comfortably. Treatment Plan: Patient was discussed Dr. Grubbs. She will be admitted the hospital for further relation and treatment. Disposition: Admitted in improved condition. Impression: 1. Cellulitis right leg. 2. Peripheral edema. 3. End-stage renal disease. 4. Anemia. This note was generated with [employer] software. It may contain incorrect words, spelling, and punctuation that were not noted in review of the chart prior to signing ED Disposition - Plan for ED Patient: Referrals: Emeka Kramer Chi, MD [Primary Care Provider] -
--- NOTE | 2020-03-04 16:41 | NURSING ---
MED SURG CELLULITIS TERELESTKY
--- NOTE | 2020-03-04 17:25 | CON.PCM_ITS ---
Consultation - Renal 03/05/20 PCP/ Referring MD: Requesting physician: [] Primary care physician: Dr. Emeka Kramer MD Reason for Consultation:: ESRD HD TTS, fluid overload - History of Present Illness History of Present Illness: The patient is a 69 year old morbidly obese F well known to me with ESRD due to diabetes, atrophic kidney admitted for fluid overload with cellulitis. She has been noncompliant with hemodialysis, came in for only 5 treatments in January. She has massive interdialytic volume overload due to noncompliance with dialysis. She is noncompliant with her binders and renal diet as well. She was last seen on 02/27 at her PCP office while receiving her iv antibiotics for cellulitis of her legs. At that time I discussed with her and her spouse the risk of increased morbidity and mortality associated with noncompliance with dialysis and consider withdrawal from dialysis/hospice if she does not want to come in for her treatments. Her has noticed gradual decline in mentation and appetite with increased tremors past several weeks at home. She chronically shortens her treatment times to 2-2.5 hrs on 02/28 and 03/02. She has not stayed her prescribed time during her 5 treatments in January. She has chronic hypoxia on home oxygen. She has poor short-term memory and poor judgement. Her spouse has been having trouble talking Angelina into coming in for her treatments for past several months. Scheduled treatment on 03/04 for fluid overload, encephalopathy and resume TTS chronic schedule. UF 4L on dialysis last night. Currently receiving hemodialysis, seen on dialysis. Discussed with hospitalist and PA. yesterday. - Allergies Allergies: Allergies No Known Allergies Allergy (Verified 03/04/20 13:32) - Past Medical History Past Medical History (Chronic Problems): Chronic Problems (Last Reviewed 02/07/20 @ 09:41 by Sheila Galvan ACID RETORT OPERATOR, ACID RETORT OPERATOR-C) Pedal edema (Chronic) Continue Lasix. Will monitor. Shortness of breath (Chronic) This is chronic and stable. We are checking an echo in 6 months to evaluate for progression of her mitral stenosis. At this time it appears to be related to her significant obesity. Discussed weight loss with the patient. 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) Cerebrovascular disease (Chronic) History of multiple acute ischemic strokes anterior circulation - Past Surgical History Surgical History: cataract, cholecystectomy, herniorrhaphy, - - wrist fx, AV fistula - Social History Smoking Status: Former smoker - Family History Paternal Family History: Family History (Last Reviewed 03/04/20 @ 17:54 by KRYSTAL Lopez) Sister Breast cancer Mother Breast cancer Grandmother Cancer History Items: Unknown Maternal Family History: Family History (Last Reviewed 03/04/20 @ 17:54 by KRYSTAL Lopez) Sister Breast cancer Mother Breast cancer Grandmother Cancer History Items: Diabetes, Heart Disease, Hypertension Review of Systems Constitutional: Reports: Anorexia, Weakness, Fatigue. Denies: Chills, Fever Cardiovascular: Reports: Edema. Denies: Chest Pain Respiratory: Reports: Shortness of Breath, Shortness of breath at rest, - - home oxygen Gastrointestinal: Denies: Abdominal Pain, Diarrhea, Nausea, Vomiting Neurological: Reports: Tremor, - - weakness. Denies: Seizures Psychiatric: Denies: Anxiety, Depression Hematologic/ Lymphatic: Reports: Anemia Patient Problems: Active and Suspected Problems (Last Reviewed 02/07/20 @ 09:41 by Sheila Galvan ACID RETORT OPERATOR, ACID RETORT OPERATOR-C) ESRD (end stage renal disease) (Acute) - Physical Exam Vitals/I&O's: Vital Signs Temp Pulse Resp BP Pulse Ox 97.5 F L 87 22 H 118/65 92 03/04/20 16:30 03/04/20 16:30 03/04/20 16:30 03/04/20 16:30 03/04/20 16:30 Oxygen Flow Rate (L/min) 4 Oxygen Delivery Method Nasal Cannula Weight: 145.15 kg Body Mass Index (BMI) 58.5 Finger Stick Blood Glucose 140 General: Alert, Oriented x3, Cooperative, No apparent distress Lungs: Clear to auscultation Cardiovascular: Regular rate Abdomen: Bowel Sounds Present, Soft, Non Tender Extremities: Edema Skin: Ulcer/ Wound - BLE R>L Musculoskeletal: - - gen weakness Psych/Mental Status: Normal Affect, Appropriate, Alert and oriented to time, place, person, mood and affect Laboratory Results 03/04/20 14:45: COVID-19 ([facility]) Pending 03/04/20 15:20: WBC 10.4, RBC 3.15 L, Hgb 9.8 L, Hct 32.5 L, MCV 103.2 H, MCH 31.1, MCHC 30.2 L, RDW Std Deviation 59.6 H, RDW Coeff of Ben 15.9 H, Plt Count 279, MPV 10.0, Immature Gran % (Auto) 0.900, Neut % (Auto) 82.7 H, Lymph % (Auto) 7.7 L, [place] % (Auto) 7.0, Eos % (Auto) 1.5, Baso % (Auto) 0.2, Absolute Neuts (auto) 8.6 H, Absolute Lymphs (auto) 0.80 L, Nucleated RBC % 0 03/04/20 15:20: Sodium 136, Potassium 5.1, Chloride 95 L, Carbon Dioxide 29.0, Anion Gap 12, BUN 80 H, Creatinine 11.10 H*, Estim Creat Clear Calc 3.89, Est GFR (MDRD) Af Amer 4 L, Est GFR (MDRD) Non-Af 4 L, BUN/Creatinine Ratio 7.2 L, Glucose 115 H, Calcium 8.1 L, Total Bilirubin 0.40, AST 44 H, ALT 41, Alkaline Phosphatase 78, Total Protein 7.9, Albumin 2.6 L, Globulin 5.3 H, Albumin/Globulin Ratio 0.5 L 03/04/20 15:20: Lactic Acid 1.8 Clinical Impression(s) from Imaging Studies Chest X-Ray 03/04/20 14:30 IMPRESSION: Left lower lobe pneumonia or atelectasis. Electronically Signed: Gallo Wheeler MD at 14:41 EDT Tel , Service support , Assessment/Plan All Active Problems (Last Reviewed 02/07/20 @ 09:41 by Sheila Galvan ACID RETORT OPERATOR, ACID RETORT OPERATOR- C) ESRD (end stage renal disease) (Acute) Cellulitis (Acute) Severe sepsis (Acute) Preoperative cardiovascular examination (Acute) Vitreous hemorrhage of right eye (Acute) Hypoxia (Resolved) Shortness of breath (Resolved) 1. ESRD HD today and TTS 2. HTN stable 3. DM2 primary service mgmt 4. cellulitis BLE on iv antbx 5. Noncompliance with dialysis, medications/binders 6. Morbid obesity/ JEROD on oxygen 7. Anemia hgb stable, JOSÉ MIGUEL/iron iv weekly 8. hyperphosphatemia due to noncompliance, on binders
--- NOTE | 2020-03-04 17:34 | PCM.HP.STD ---
Problem List (1) ESRD (end stage renal disease) Status: Acute (2) Cellulitis Status: Acute (3) JEROD (obstructive sleep apnea) Status: Suspected (4) Mitral stenosis Status: Chronic Qualifiers: Cardiac valve disease etiology: etiology unspecified Qualified Code(s): I05.0 - Rheumatic mitral stenosis (5) Hyperlipidemia Status: Chronic (6) Essential hypertension Status: Chronic (7) Acquired hypothyroidism Status: Chronic (8) Diabetes mellitus, type 2 Status: Chronic Comment: w neuropathy and retinopathy History of Present Illness Date of Admission: 03/04/20 Chief Complaint: leg redness The patient is a 69 year old F with a past medical history of end-stage renal disease, patient of Dr. Lambert, obstructive sleep apnea, hypertension, type 2 diabetes, history of TIA, morbid obesity, who presented to the emergency room with complaints of leg redness, shortness of breath and wheeziness. She was seen recently by her PCP who had given her Rocephin for possible cellulitis of the legs. No improvement with antibiotics. She had missed several rounds of dialysis, only went to dialysis 5 times the entire month of January, and was not completing her entire rounds of dialysis when she was there. She has had a at least 10/kg weight gain, increased lower extremity edema, redness of the bilateral lower extremities, increasing shortness of breath and wheezing. She appears to be largely volume overloaded at this time. She has not had fevers or chills. She has had some diarrhea following dialysis, some generalized weakness, fatigue nausea. [] Past Medical History Past Medical History (Chronic Problems): Chronic Problems (Last Reviewed 02/07/20 @ 09:41 by Sheila Galvan DATA LIBRARIAN, DATA LIBRARIAN-C) Pedal edema (Chronic) Continue Lasix. Will monitor. Shortness of breath (Chronic) This is chronic and stable. We are checking an echo in 6 months to evaluate for progression of her mitral stenosis. At this time it appears to be related to her significant obesity. Discussed weight loss with the patient. 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) Cerebrovascular disease (Chronic) History of multiple acute ischemic strokes anterior circulation Medical History: Medical History (Last Reviewed 02/07/20 @ 09:41 by Sheila Galvan DATA LIBRARIAN, DATA LIBRARIAN-C) Hyperlipidemia (Chronic) E78.5 Essential hypertension (Chronic) I10 Vitreous hemorrhage of right eye (Acute) H43.11 Acquired hypothyroidism (Chronic) E03.9 CKD stage 3 due to type 2 diabetes mellitus (Chronic) E11.22, N18.3 Cerebrovascular disease (Chronic) I67.9 History of multiple acute ischemic strokes anterior circulation Arthritis of spine M47.819 Cervical radiculopathy M54.12 left sided Chronic back pain M54.9, G89.29 Degenerative disc disease, cervical M50.30 Dialysis patient Z99.2 Insomnia G47.00 Major depression F32.9 Memory loss R41.3 Morbid obesity with BMI of 60.0-69.9, adult E66.01, Z68.44 Narrowing of intervertebral disc space M99.79 Problem with dialysis access T82.898A Segmental and somatic dysfunction of cervical region M99.01 Segmental and somatic dysfunction of thoracic region M99.02 Abscess of labia majora N76.4 History of fistula Z87.59 History of stroke Z86.73 Allergies No Known Allergies Allergy (Verified 03/04/20 13:32) Home Medications: Ambulatory Orders Medication Instructions Recorded Vilazodone Hydrochloride [Viibryd] 40 mg PO QHS 05/29/14 Aspirin E.C. [Ecotrin] 81 mg PO DAILY@0800 #30 tab 06/01/14 dulaglutide 1.5 mg/0.5 mL 1.5 mg SC TH 04/11/19 subcutaneous pen injector levothyroxine 200 mcg tablet 200 mcg PO DAILY 04/11/19 B complex-vitamin C-folic acid 0.8 1 tab PO DAILY 12/13/19 mg tablet calcium acetate 667 mg tablet 2,001 mg PO TID 12/13/19 cholecalciferol (vitamin D3) 25 25 mcg PO DAILY 12/13/19 mcg (1,000 unit) tablet doxepin 25 mg capsule 25 mg PO QHS PRN 12/13/19 metoprolol tartrate 50 mg tablet 25 mg PO BID tab 12/13/19 clotrimazole-betamethasone 1 1 applic TOPICAL BID 14 Days #45 g 01/03/20 %-0.05 % topical cream diphenoxylate-atropine 2.5 1 tab PO QHS PRN 01/03/20 mg-0.025 mg tablet Acetaminophen [Tylenol Extra 1,000 mg PO TID PRN PRN 03/04/20 Strength] Furosemide [Lasix] 20 mg PO DAILY 03/04/20 Insulin U-500 [Humulin R U-500 34 units SUBCUT BID 03/04/20 ([facility])] Surgical History: Surgical History (Last Reviewed 02/07/20 @ 09:41 by Sheila Galvan DATA LIBRARIAN, DATA LIBRARIAN-C) AV fistula I77.0 left History of cholecystectomy Z90.49 History of hernia repair Z98.890, Z87.19 Surgical History: cataract, cholecystectomy, herniorrhaphy, - - wrist fx, AV fistula Psychiatric History: No pertinent psych hx PRIVATE MORTGAGE BANKER SAFE History: No pertinent PRIVATE MORTGAGE BANKER SAFE history Smoking Status: Former smoker - *Family History Paternal Family History: Family History (Last Reviewed 03/04/20 @ 17:54 by KRYSTAL Lopez) Sister Breast cancer Mother Breast cancer Grandmother Cancer History Items: Unknown Maternal Family History: Family History (Last Reviewed 03/04/20 @ 17:54 by KRYSTAL Lopez) Sister Breast cancer Mother Breast cancer Grandmother Cancer History Items: Diabetes, Heart Disease, Hypertension Review of Systems Constitutional: Reports: Malaise, Weakness, Fatigue. Denies: Chills, Fever, Weight Change HEENT: Denies: Head Aches, Sinus Congestion, Sinus Drainage Cardiovascular: Reports: Edema. Denies: Chest Pain, Light Headedness, Palpitations, Syncope Respiratory: Reports: Shortness of Breath, Shortness of breath at rest, Shortness of breath upon exertion, Wheezing. Denies: Cough, Sputum production Gastrointestinal: Reports: Diarrhea, Nausea. Denies: Abdominal Pain, Vomiting Genitourinary: Denies: Dysuria Musculoskeletal: Denies: Joint Pain, Joint Tenderness Skin: Denies: Rash, Wounds Neurological: Denies: Numbness, Tingling, Focal weakness Psychiatric: Denies: Anxiety, Depression, Homicidal Ideations, Suicidal Ideations Hematologic/ Lymphatic: Denies: Easy Bruising, Easy Bleeding VTE Information - Inpt Only VTE Present on Admission: No VTE Mechan Device Prophylaxis: None VTE Pharm Prophylaxis ordered?: Yes Patient Problems: Active and Suspected Problems (Last Reviewed 02/07/20 @ 09:41 by Sheila Galvan DATA LIBRARIAN, DATA LIBRARIAN-C) ESRD (end stage renal disease) (Acute) - Physical Exam Vitals/I&O's: Vital Signs Temp Pulse Resp BP Pulse Ox 97.5 F L 87 22 H 118/65 92 03/04/20 16:30 03/04/20 16:30 03/04/20 16:30 03/04/20 16:30 03/04/20 16:30 Oxygen Flow Rate (L/min) 4 Oxygen Delivery Method Nasal Cannula Weight: 320 lb Body Mass Index (BMI) 58.5 Finger Stick Blood Glucose 140 General: Alert, Oriented x3, Cooperative HEENT: Atraumatic, PERRLA, EOMI, Normocephalic Neck: Supple, No JVD, Negative Carotid Bruits Lungs: Clear to auscultation, Normal air movement Cardiovascular: Regular rate, No murmurs Abdomen: Bowel Sounds Present, Soft, Non Tender Extremities: Capillary Refill Less than 3 Seconds, Edema - 3+ pitting edema BLE Skin: No rashes, No breakdown, - - BL LE erythema, edema, no increased warmth. no drainage at this time. Musculoskeletal: No Tenderness to Palpation of Joints or Extremities Neurological: Cranial nerves II-XII grossly intact Psych/Mental Status: Normal Affect, Appropriate, Alert and oriented to time, place, person, mood and affect Laboratory Results 03/04/20 14:45: COVID-19 ([facility]) Pending 03/04/20 15:20: WBC 10.4, RBC 3.15 L, Hgb 9.8 L, Hct 32.5 L, MCV 103.2 H, MCH 31.1, MCHC 30.2 L, RDW Std Deviation 59.6 H, RDW Coeff of Ben 15.9 H, Plt Count 279, MPV 10.0, Immature Gran % (Auto) 0.900, Neut % (Auto) 82.7 H, Lymph % (Auto) 7.7 L, [place] % (Auto) 7.0, Eos % (Auto) 1.5, Baso % (Auto) 0.2, Absolute Neuts (auto) 8.6 H, Absolute Lymphs (auto) 0.80 L, Nucleated RBC % 0 03/04/20 15:20: Sodium 136, Potassium 5.1, Chloride 95 L, Carbon Dioxide 29.0, Anion Gap 12, BUN 80 H, Creatinine 11.10 H*, Estim Creat Clear Calc 3.89, Est GFR (MDRD) Af Amer 4 L, Est GFR (MDRD) Non-Af 4 L, BUN/Creatinine Ratio 7.2 L, Glucose 115 H, Calcium 8.1 L, Total Bilirubin 0.40, AST 44 H, ALT 41, Alkaline Phosphatase 78, Total Protein 7.9, Albumin 2.6 L, Globulin 5.3 H, Albumin/Globulin Ratio 0.5 L 03/04/20 15:20: Lactic Acid 1.8 Assessment/Plan All Active Problems (Last Reviewed 02/07/20 @ 09:41 by Sheila Galvan DATA LIBRARIAN, DATA LIBRARIAN-C) ESRD (end stage renal disease) (Acute) Cellulitis (Acute) Severe sepsis (Acute) Preoperative cardiovascular examination (Acute) Vitreous hemorrhage of right eye (Acute) Hypoxia (Resolved) Shortness of breath (Resolved) 1. Anasarca 2/2 noncompliance with dialysis - consult Dr. Lambert. Will attempt dialysis tonight and in morning. I have discussed with the patient the important of strict compliance with dialysis. We discussed her option of discontinuing dialysis and considering hospice care if she is unable to further tolerate it. She would like to continue treatment for now. 2. Acute cellulitis LLE - pt reports the LLE redness is new and was given rocephin with no improvement for possible cellulitis as outpatient. both legs are erythematous and she has chronic venous insufficiency with no WBC elevation or fever. I suspect that this is venous stasis due to her anasarca however she will be given rocephin as she may have a component of cellulitis as well. UMBERTO wrap BL LE. 3. Anemia of chronic dz (ESRD) - trend. not significantly below baseline. 4. Chronic hypoxic respiratory failure 2/2 pulmonary HTN - 4lpm baseline - at baseline. 5. DMt2 with morbid obesity - continue home insulin + SSI. Hold GLP1A. Gag Writer consult. DVT ppx: heparin DC planning: PTOT evals for worsening generalized weakness This patient was seen by Arthur Malone PA-C under the supervision of Doctor Grubbs.
[2020-03-04 19:21] LABS: Bedside Glucose 99 mg/dL (70-110)
--- NOTE | 2020-03-04 22:45 | DIALYSIS ---
HD x3 hours completed at 2205 on a 2K bath, tolerated well, UF 4000mL, accessed via LFA AVF using 15G needles, worked well, suture noted to distal end, needles pulled post tx and stasis achieved without issue, next tx planned for Wednesday
[2020-03-04 22:46] LABS: Bedside Glucose 100 mg/dL (70-110)
[2020-03-04] MEDS: Midodrine HCl 5 MG Tablet 10 MG PO (23:21)
[2020-03-04] MEDS: Nystatin Powder 15gm Bottle 1 APPLIC TOPICAL (23:21)
[2020-03-04] MEDS: Acetaminophen 500 MG Tablet 1000 MG PO (23:21)
[2020-03-04] MEDS: VILAZODONE HYDROCHLORIDE 10 MG TABLET 40 MG PO (23:21)
[2020-03-04] MEDS: Heparin Injection (Vial) 5,000 UNIT/ML VIAL 5000 UNIT SC (23:22)
[2020-03-05] VITALS (11 sets, daily range): BP systolic 95–140; BP diastolic 29–90; PULSE 76–92; RESP 18–24; TEMP 36.2–37.3; O2SAT 95–97
[2020-03-05] MEDS: Levothyroxine 100 MCG Tablet 200 MCG PO (05:49)
[2020-03-05] MEDS: Nystatin Powder 15gm Bottle 1 APPLIC TOPICAL ×3 (05:49→22:40)
[2020-03-05 06:52] LABS: Absolute Lymphocyte Count 0.65 X10^3/uL (0.83-4.51); Basophil# 0.04 X10^3/uL; Basophil% 0.4 % (0-1); Eosinophil# 0.27 X10^3/uL; Eosinophils% 2.7 % (0-5); Hematocrit 30.8 % (37-47); Hemoglobin 9.2 g/dL (12.0-15.0); Lymphocyte # 0.65 X10^3/ul (4.0); Lymphocyte % 6.6 % (19-41); Mean Corp Hgb Conc 29.9 g/dL (32-36); Mean Corpuscular Hgb 31.3 pg (27.0-32.0); Mean Corpuscular Volume 104.8 fL (81-99); Mean Platelet Vol. 9.9 fl (6.2-12.0); Monocyte# 0.85 X10^3/uL; Monocyte% 8.6 % (0-10); NRBC Flagged by Analyzer 0 % (0-5); Neutrophil # 7.96 X10^3/uL (2.7-7.7); Neutrophil % 80.5 % (47-70); Platelet Count 296 K/mm3 (150-450); RBC Distribution Width CV 15.9 % (11.6-14.6); Red Blood Count 2.94 M/mm3 (4.2-5.4); White Blood Count 9.9 K/mm3 (4.4-11.0)
[2020-03-05 07:11] LABS: Bedside Glucose 109 mg/dL (70-110)
[2020-03-05 07:59] LABS: Albumin, Serum 2.5 g/dL (3.2-5.0); BUN 54 mg/dL (7-18); BUN/Creat Ratio 6.9 RATIO (10-20); Calcium,Total 7.4 mg/dL (8.5-10.1); Chloride 93 mmol/L (98-107); Creatinine, Serum 7.88 mg/dL (0.55-1.02); EST Glomerular Filtration Rate 5 mL/min (>60); Est Glom Filt Rate - Afr Amer 7 mL/min (>60); Estimated Creatinine Clearance 5.48 ml/min; Glucose 177 mg/dL (74-106); Phosphorus 8.2 mg/dL (2.5-4.9); Potassium 4.5 mmol/L (3.5-5.1); Sodium Level 133 mmol/L (136-145)
--- NOTE | 2020-03-05 11:26 | PCM.DC ---
- Discharge Diagnoses Current Active Problems: Current Active and Chronic Problems (Last Reviewed 02/07/20 @ 09:41 by Sheila Galvan WINDOW TRIMMER APPRENTICE, WINDOW TRIMMER APPRENTICE-C) ESRD (end stage renal disease) (Acute) You will use the following diet at home:: Renal (restricted protein/sodium) Your food should be the consistency of: Regular Your liquids should be the consistency of: Regular/Thin Discharge Activity: Return to Normal Activity, - - Gently wash legs with soap and water daily and keep dry and covered with gauze and yen wraps to the legs below the knees daily until seen by PCP in 1-2 weeks. Call your doctor if you observe: Fever of 101 or Higher, Shortness of breath Allergies/Adverse Reactions: Allergies No Known Allergies Allergy (Verified 03/04/20 13:32) Medications to take at Discharge Vilazodone Hydrochloride [Viibryd] 40 mg PO QHS 05/29/14 Aspirin E.C. [Ecotrin] 81 mg PO DAILY@0800 #30 tab 06/01/14 dulaglutide 1.5 mg/0.5 mL subcutaneous pen injector 1.5 mg SC TH 04/11/19 levothyroxine 200 mcg tablet 200 mcg PO DAILY 04/11/19 B complex-vitamin C-folic acid 0.8 mg tablet 1 tab PO DAILY 12/13/19 calcium acetate 667 mg tablet 2,001 mg PO TID 12/13/19 cholecalciferol (vitamin D3) 25 mcg (1,000 unit) tablet 25 mcg PO DAILY 12/13/19 doxepin 25 mg capsule 25 mg PO QHS PRN 12/13/19 metoprolol tartrate 50 mg tablet 25 mg PO BID tab 12/13/19 clotrimazole-betamethasone 1 %-0.05 % topical cream 1 applic TOPICAL BID 14 Days #45 g 01/03/20 diphenoxylate-atropine 2.5 mg-0.025 mg tablet 1 tab PO QHS PRN 01/03/20 Acetaminophen [Tylenol] 1,000 mg PO TID PRN PRN 03/04/20 Furosemide [Lasix] 20 mg PO DAILY 03/04/20 Insulin U-500 [Humulin R U-500 ([facility])] 34 units SUBCUT BID 03/04/20 Doxycycline [Vibramycin] 100 mg PO BID #10 cap 03/05/20 The following prescriptions were given: Doxycycline [Vibramycin] 100 mg PO BID #10 cap Transmission Status: Pending to [facility] #30 Primary Care Physician: Emeka Kramer Chi, MD [Primary Care Provider] - Please follow up with your Primary Care Physician in: 1-2 weeks Test Results: Test results from this visit will be discussed in further detail at your follow-up appointment, if applicable. Please Follow Up With: Rocio Lambert DO - Alfredo When: as directed Proposed Discharge Date: 03/05/20
[2020-03-05] MEDS: Acetaminophen 500 MG Tablet 1000 MG PO ×2 (11:56→18:08)
[2020-03-05] MEDS: Epoetin Alfa epbx 10,000 UNITS/ML 6000 UNIT IV (11:59)
[2020-03-05 12:05] LABS: Bedside Glucose 153 mg/dL (70-110)
[2020-03-05] MEDS: Ceftriaxone 1 GM/50 ML BAG IV (13:16)
[2020-03-05] MEDS: Calcium Acetate 667 MG Capsule 2001 MG PO ×2 (13:17→16:49)
[2020-03-05] MEDS: Folic Acid/Vitamin B Comp W-C 1 Capsule 1 CAP PO (13:18)
[2020-03-05] MEDS: Ammonium Lactate 225 gm Bottle 1 APPLIC TOPICAL ×2 (13:19→22:39)
--- NOTE | 2020-03-05 13:30 | NURSING ---
RN CM Assessment Introduced role of RN CM to patient. Patient is alert, oriented and able to participate in RN CM Assessment. Care providers, pharmacy, and demographics verified. Admit Dx: Anasarca, Cellulitis RLE Re-Admit: No Barriers/Issues: HD Ctr: [facility] T/TH/Sat, chair time: 1030am. Ranjan takes her and denies any issues with transportation to HD. Per MD report, patient non-compliant with HD and has attended approx 4-5 sessions in January 2020. PCP: Emeka Kramer Chi Specialists: [facility]ph[facility]toriya- Dr Lambert Preferred Pharmacy: [facility] Insurance: [facility] A&B, O Rx Benefit: Yes LNOK: Marcelino Hartman LW/HPOA: Patient states she has completed both, made aware not on fie and will place copy on file when brought in. Living Arrangements: Lives with her in a [facility], 2 steps to enter. ADL?s: Ambulates with a Walker, needs assistance with bathing otherwise independent with all other ADLs Transportation: Ranjan provides transportation and will transport upon DC DME: WW, WC, Home O2 continuous- called Joseph s/w [place] and confirmed patient is on 4L continuous. HHC: Noted [facility] in past however patient states unsure. States her Ranjan handles everything since she had a stroke in the past SNF: Denies Goal: Home and does not think will have any needs. Denies any issues or concerns with discharge planning at this time. Aware RNCM remains available for any emerging needs. DC PLAN: Home with no anticipated needs identified at this time. JOCELYNE Sen
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
[2020-03-05] MEDS: Metoprolol Tartrate 25 MG Tablet PO ×2 (14:05→22:40)
--- NOTE | 2020-03-05 15:05 | DIALYSIS ---
1245: HD x 4 hours and 15 minutes complete. Tolerated tx well. UF of 4500ml. Ran on 2k bath. Used left arm fistula. [place] removed post tx and pressure applied x 10 minutes. Hemostasis achieved. Fresh gauze and tape applied. Positive thrill/bruit noted. Retacrit and venofer given as ordered. Report was given to SUHA Comer.
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
--- NOTE | 2020-03-05 16:25 | CASEMGMT ---
Social Work Note PT/OT updated this worker that they are recommending SNF at discharge. SW in to speak with pt and pt's Marcelino present in room. SAMIRA spoke with pt about going to SNF for short term rehabilitation. Pt agreeable to SNF. SW provided pt's Marcelino with list of SNF that accept pt's insurance. Marcelino states first choice is [facility] and second choice [facility] [place]. Pt agreeable to trying [facility] first. SAMIRA explained referral process. SAMIRA placed a call to Meaghan at [facility] and provided referral. SAMIRA updated Meaghan of pt's dialysis schedule and that pt will need transportation to dialysis. Pt's dialysis schedule is Wednesday, , Wednesday at 10:40am at [facility] in [place]. Meaghan states she will review referral. SAMIRA faxed referral to [facility]. SAMIRA updated physician. Plan: [facility] pending acceptance Kendra Negron TEA TREE FARM WORKER, BREAKER OFF
[2020-03-05 16:40] LABS: Bedside Glucose 221 mg/dL (70-110)
[2020-03-05] MEDS: Insulin Lispro 100 UNIT/ML INSULN.PEN SC ×2 (16:46→22:01)
[2020-03-05 20:16] LABS: M R Staph aureus DNA By PCR Negative (Negative); Probe Check PASS; Specimen Processing Control PASS
[2020-03-05 22:31] LABS: Bedside Glucose 222 mg/dL (70-110)
[2020-03-05] MEDS: Doxepin Hcl 25 MG Capsule PO (22:38)
[2020-03-05] MEDS: VILAZODONE HYDROCHLORIDE 10 MG TABLET 40 MG PO (22:39)
[2020-03-05] MEDS: Heparin Injection (Vial) 5,000 UNIT/ML VIAL 5000 UNIT SC (22:39)
[2020-03-05] MEDS: Doxycycline 100 MG CAPSULE PO (22:39)
[2020-03-06] VITALS (8 sets, daily range): BP systolic 108–115; BP diastolic 53–78; PULSE 70–89; RESP 12–25; TEMP 36.8–37; O2SAT 92–97
--- NOTE | 2020-03-06 01:38 | NURSING ---
spoke with pt's , Michel, on phone when pt asked this rn to help her call him. informed michel that pt reported a terrible dream and has been experiencing a lot of anxiety and been upset since. Michel tells this rn that this happens to pt frequently at home and that pt does not normally sleep well in night.
[2020-03-06] MEDS: Acetaminophen 500 MG Tablet 1000 MG PO (02:23)
[2020-03-06 02:26] LABS: Bedside Glucose 193 mg/dL (70-110)
[2020-03-06] MEDS: Levothyroxine 100 MCG Tablet 200 MCG PO (05:10)
[2020-03-06] MEDS: Nystatin Powder 15gm Bottle 1 APPLIC TOPICAL (05:10)
[2020-03-06 07:26] LABS: Anion Gap 10 (5-15); BUN 38 mg/dL (7-18); BUN/Creat Ratio 6.1 RATIO (10-20); Calcium,Total 7.9 mg/dL (8.5-10.1); Chloride 95 mmol/L (98-107); Creatinine, Serum 6.23 mg/dL (0.55-1.02); EST Glomerular Filtration Rate 7 mL/min (>60); Est Glom Filt Rate - Afr Amer 9 mL/min (>60); Estimated Creatinine Clearance 6.93 ml/min; Glucose 207 mg/dL (74-106); Potassium 3.9 mmol/L (3.5-5.1); Sodium Level 133 mmol/L (136-145)
[2020-03-06 08:01] LABS: Bedside Glucose 203 mg/dL (70-110)
[2020-03-06] MEDS: Insulin Lispro 100 UNIT/ML INSULN.PEN SC ×2 (08:07→12:12)
[2020-03-06] MEDS: Aspirin E.C. 81 MG Tablet PO (08:09)
[2020-03-06] MEDS: Calcium Acetate 667 MG Capsule 2001 MG PO ×2 (08:09→12:13)
[2020-03-06] MEDS: Ceftriaxone 1 GM/50 ML BAG IV (10:37)
[2020-03-06] MEDS: Doxycycline 100 MG CAPSULE PO (10:38)
[2020-03-06] MEDS: Metoprolol Tartrate 25 MG Tablet PO (10:38)
[2020-03-06] MEDS: Heparin Injection (Vial) 5,000 UNIT/ML VIAL 5000 UNIT SC (10:38)
[2020-03-06] MEDS: Folic Acid/Vitamin B Comp W-C 1 Capsule 1 CAP PO (10:39)
[2020-03-06] MEDS: Ammonium Lactate 225 gm Bottle 1 APPLIC TOPICAL (10:39)
--- NOTE | 2020-03-06 10:44 | PCM.EXTCARCO ---
- Diet 03/04/20 18:41 Diet: Consistent Carb - Calorie Controlled Food consistency:: Regular Liquid Consistency:: Regular/Thin How many daily calories?: 1800 calorie - Routine Orders/Code Status Enema Frequency: Daily PRN Suppository Type: Dulcolax 10mg O2 Frequency: Continuous Keep PO Greater than or Equal to (%): 90 Routine Lab Work: CBC - 3 days, BMP - 3 days Code Status: Full Code - Wound(s) right lower leg Wound Type: cellulitis left lower leg Wound Type: cellulitis coccyx Wound Type: Pressure Injury Bilateral shins Wound Type: open blisters from edema - Therapies Physical Therapy: Eval and Treat Occupational Therapy: Eval and Treat - Problem/Diagnosis (1) ESRD (end stage renal disease) Status: Acute Current Visit: Yes (2) Cellulitis Status: Acute Current Visit: No (3) JEROD (obstructive sleep apnea) Status: Suspected Current Visit: No (4) Mitral stenosis Status: Chronic Current Visit: No (5) Hyperlipidemia Status: Chronic Current Visit: No (6) Essential hypertension Status: Chronic Current Visit: No (7) Acquired hypothyroidism Status: Chronic Current Visit: No (8) Diabetes mellitus, type 2 Status: Chronic Comment: w neuropathy and retinopathy Current Visit: No - Allergies/Procedures Done in Hospital Allergies/Adverse Reactions: Allergies No Known Allergies Allergy (Verified 03/04/20 13:32) Procedures: Dialysis - Type of Care/Length of Stay Estimated LOS: Convalescent Care Less Than 30 days Type of Care Needed: Skilled Rehab Potential: Fair Prognosis: Fair - Additional Orders/Day of Discharge Day of Discharge: 03/06/20 - Follow Up Care Primary Care Physician: Emeka Kramer Chi, MD [Primary Care Provider] - Please follow up with your Primary Care Physician in: 1-2 weeks Please Follow Up With: Rocio Lambert DO When: as directed Please Follow Up With: Sheila Galvan NP-C When: 2-4 weeks
--- NOTE | 2020-03-06 11:50 | DCINST_ITS ---
- Discharge Diagnoses Current Active Problems: Current Active and Chronic Problems (Last Reviewed 02/07/20 @ 09:41 by Sheila Galvan [employer], [employer]ER-C) Fluid overload (Acute) Noncompliance with diet and medication regimen (Acute) Noncompliance of patient with renal dialysis (Acute) ESRD (end stage renal disease) (Acute) You will use the following diet at home:: Calorie/Carbohydrate Controlled (specify 1200, 1400, etc) Your food should be the consistency of: Regular Discharge Activity: May Not Drive, - - Gently wash legs with soap and water daily and keep dry and covered with gauze and yen wraps to the legs below the knees daily until seen by PCP in 1-2 weeks. Call your doctor if you observe: Fever of 101 or Higher, Coldness, Increased Pain, Numbness or Tingling, Change in Color, Inability to have a bowel movement, Using more than one pad per hour, Shortness of breath, Dizziness, Swelling in the ankles, Chest pain, Increased palpitations (irregular heartbeat), Uncontrolled pain Allergies/Adverse Reactions: Allergies No Known Allergies Allergy (Verified 03/04/20 13:32) Medications to take at Discharge Vilazodone Hydrochloride [Viibryd] 40 mg PO QHS 05/29/14 Aspirin E.C. [Ecotrin] 81 mg PO DAILY@0800 #30 tab 06/01/14 dulaglutide 1.5 mg/0.5 mL subcutaneous pen injector 1.5 mg SC TH 04/11/19 levothyroxine 200 mcg tablet 200 mcg PO DAILY 04/11/19 B complex-vitamin C-folic acid 0.8 mg tablet 1 tab PO DAILY 12/13/19 calcium acetate 667 mg tablet 2,001 mg PO TID 12/13/19 cholecalciferol (vitamin D3) 25 mcg (1,000 unit) tablet 25 mcg PO DAILY 12/13/19 doxepin 25 mg capsule 25 mg PO QHS PRN 12/13/19 metoprolol tartrate 50 mg tablet 25 mg PO BID tab 12/13/19 clotrimazole-betamethasone 1 %-0.05 % topical cream 1 applic TOPICAL BID 14 Days #45 g 01/03/20 diphenoxylate-atropine 2.5 mg-0.025 mg tablet 1 tab PO QHS PRN 01/03/20 Acetaminophen [Tylenol] 1,000 mg PO TID PRN PRN 03/04/20 Furosemide [Lasix] 20 mg PO DAILY 03/04/20 Insulin U-500 [Humulin R U-500 ([facility])] 34 units SUBCUT BID 03/04/20 Doxycycline 100 mg PO BID #8 cap 03/06/20 Primary Care Physician: Emeka Kramer Chi, MD [Primary Care Provider] - Please follow up with your Primary Care Physician in: 1-2 weeks Test Results: Test results from this visit will be discussed in further detail at your follow- up appointment, if applicable. Please Follow Up With: Rocio Lambert DO When: as directed Please Follow Up With: Sheila Galvan NP-C When: 2-4 weeks Please Follow Up With: Lio Liriano MD When: Office will call you to set appointment up Proposed Discharge Date: 03/06/20
[2020-03-06 12:10] LABS: Bedside Glucose 226 mg/dL (70-110)
--- NOTE | 2020-03-06 12:14 | CASEMGMT ---
Addendum entered by Coco Jennings 03/06/20 14:52: Social Work [facility] is able to accept pt. Pt to be discharged today. RN and pt notified. JARRED Loja Original Note: Social Work SW spoke with Meaghan at [facility] and they are able to accept pt. Physician stating pt is ready for discharge today. SW met with pt and . Pt sleeping during discussion. Pt stating pt will not be able to tolerate SNF placement due to Covid restrictions of no visitors and that spouse will take pt back home with him. Spouse stating he provides 24 hour care to pt. SW discuss with spouse his ability to care for pt. He states that pt was having difficulty prior to hospitalization and he was able to provide care. Pt spends most of her time in recliner and is able to transfer self out of recliner and into wheelchair. will take pt to bathroom and pt is able to transfer onto the commode and assists with emeli care. Spouse states he assists with bathing and dressing and he has been able to assist pt in and out of care for transportation needs. Ramp is being installed at pt home tomorrow to make home more accessible. Pt has a wheelchair, walker, hospital bed and lift chair. Pt spouse is aware of how important dialysis is and that he tried to talk pt into going to dialysis and he would transport her, but pt is stubborn and was unwilling to go throughout the last month. Up until January, pt was regularly going to dialysis. Spouse is agreeable to home health services, PT/OT/SN/SHIPPER/RECEIVER and has no preference on agency. Per spouse, pt does have oxygen in the home that she uses all the time. She does not have bipap/cpap. She had been scheduled for a sleep study and refused to go. SW reentered pt room when pt was awake. Pt also stating she does not plan to go to [facility] any longer and plans to return home. SW spoke with pt regarding dialysis and SW inquired if she planned to go to dialysis tomorrow. Pt stating that she hates dialysis but acknowledged that if she did not go she knows she will . Pt talks about wanting to live for her grandchildren. Pt and spouse are in agreement that pt can return home and that spouse can provide care as needed. Pt is agreeable to home health with no preference of agency. VM left with Isabel at [facility]. Will await return call. VM left with Meaghan at [facility] cancelling referral. KRYSTAL Leon notified of pt decision. RN updated. Plan: Home with home health SN/PT/OT/SHIPPER/RECEIVER JARRED Loja
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
--- NOTE | 2020-03-08 14:33 | CASEMGMT ---
[facility] DC PHONE CALL DC DATE: 03/06/2020 DC DISPOSITION: Home with [facility] DC DIAGNOSIS: Fluid overload, ESRD LACE/STRATA: 10/09 F/U APPTS MADE PRIOR TO DC: yes Call to [facility]. Start of care is today. Call deferred as Transition of Care is to [facility]. Jose RAVI RN [facility]
--- NOTE | 2020-03-13 10:57 | CASEMGMT ---
Social Work Discharge follow up Phone call: Discharge Date: 03/06/20 Call Date: 03/13/20 Callt Time: 1100 Reason for Follow up: Pt was scheduled to go to SNF at time of d/c. Pt and spouse changing mind right before discharge. Followup call to check on well being at home Summary of Call: Pt stating that she is doing well at home. [facility] is involved and [facility] SW is to visit today. Interventions: Pt denies needs. [facility] SW to follow up. No further needs requested or indicated. JARRED Loja
== END 2020-03-06 15:19 | disposition home health service (06) | DRG 682 ==
LOC: ED 14:22 → MS3 17:48
PROVIDERS: Internal Medicine Nephrology; Physician Assistant; Admitting Provider Internal Medicine; Emergency Provider Emergency Medicine; PCP Family Medicine Geriatric Medicine; Visit Provider Internal Medicine
DX: I12.0 Hypertensive chronic kidney disease with stage 5 chronic kidney disease or end stage renal disease (principal); N18.6 End stage renal disease; J96.11 Chronic respiratory failure with hypoxia; L03.115 Cellulitis of right lower limb; L03.116 Cellulitis of left lower limb; Z68.44 Body mass index [BMI] 60.0-69.9, adult; E66.2 Morbid (severe) obesity with alveolar hypoventilation; E11.22 Type 2 diabetes mellitus with diabetic chronic kidney disease; I27.20 Pulmonary hypertension, unspecified; E11.319 Type 2 diabetes mellitus with unspecified diabetic retinopathy without macular edema; E11.40 Type 2 diabetes mellitus with diabetic neuropathy, unspecified; D63.1 Anemia in chronic kidney disease; E83.39 Other disorders of phosphorus metabolism; I87.2 Venous insufficiency (chronic) (peripheral); E78.5 Hyperlipidemia, unspecified; I89.0 Lymphedema, not elsewhere classified; E03.9 Hypothyroidism, unspecified; F32.9 Major depressive disorder, single episode, unspecified; Z91.15 Patient's noncompliance with renal dialysis; Z91.11 Patient's noncompliance with dietary regimen; Z91.14 Patient's other noncompliance with medication regimen; Z99.2 Dependence on renal dialysis; Z79.82 Long term (current) use of aspirin; Z79.4 Long term (current) use of insulin; Z79.890 Hormone replacement therapy; Z79.899 Other long term (current) drug therapy; Z87.891 Personal history of nicotine dependence; Z86.73 Personal history of transient ischemic attack (TIA), and cerebral infarction without residual deficits; Z86.14 Personal history of Methicillin resistant Staphylococcus aureus infection
CPT/HCPCS: 36415; 71045; 80048; 80053; 80069; 82962; 83605; 85025; 87040; 87635; 87641; 90937; 93005; 94002; 97110; 97162; 97166; 97530; 97535; 97802; 99285; J1756; J7030; J7040; J7050; A4216; G0257; J2405; Q5106; U0003

== ENCOUNTER → 2020-03-27 10:49 | Outpatient (CLI) | payer MEDICARE, OTHER, SELFPAY ==
[2020-03-04 19:01] VITALS: BMI 68.1
[2020-03-27 12:47] LABS: Vitamin D,25 Hydroxy 46.1 ng/mL
== END ==
PROVIDERS: PCP Family Medicine Geriatric Medicine; Visit Provider Family Medicine Geriatric Medicine
DX: E11.9 Type 2 diabetes mellitus without complications (principal); I10 Essential (primary) hypertension; E55.9 Vitamin D deficiency, unspecified
CPT/HCPCS: 36415; 82306; 84443

== ENCOUNTER → 2020-05-02 18:39 | Outpatient (CLI) | payer MEDICARE, OTHER, SELFPAY ==
[2020-03-04 19:01] VITALS: BMI 68.1
== END ==
PROVIDERS: PCP Family Medicine Geriatric Medicine; Referring Provider Family Medicine Geriatric Medicine; Visit Provider Family Medicine Geriatric Medicine
DX: R68.83 Chills (without fever) (principal)
CPT/HCPCS: 87633; 87635; C9803; U0003

== ENCOUNTER → 2020-05-16 | Outpatient (CLI) | payer MEDICARE, OTHER, SELFPAY ==
[2020-03-04 19:01] VITALS: BMI 68.1
== END | disposition home or self-care (01) ==
LOC: LABSPEC 18:13
PROVIDERS: PCP Family Medicine Geriatric Medicine; Referring Provider Family Medicine Geriatric Medicine; Visit Provider Family Medicine Geriatric Medicine
DX: R06.89 Other abnormalities of breathing (principal)
CPT/HCPCS: 87635; C9803; U0003